=== PATIENT | female | born 1980 | race Caucasian/White ===

== ENCOUNTER → 2019-02-17 | Outpatient (CLI) | payer OTHER, SELFPAY ==
[2019-02-17 08:33] VITALS: BMI 29.6
[2019-02-23 13:56] LABS: HPV APTIMA, High Risk Negative (Negative)
== END | disposition home or self-care (01) ==
LOC: LABSPEC 12:07
PROVIDERS: Family Provider Nurse Practitioner Family; PCP Nurse Practitioner Family; Referring Provider Nurse Practitioner Women's Health; Visit Provider Nurse Practitioner Women's Health
DX: Z12.4 Encounter for screening for malignant neoplasm of cervix (principal)
CPT/HCPCS: 87624; 88175; G0145

== ENCOUNTER → 2021-02-21 07:58 | Outpatient (CLI) | payer OTHER, SELFPAY ==
[2020-02-19 08:49] VITALS: BMI 29.6
--- NOTE | 2021-02-21 08:00 | BI_ITS ---
MAMMOGRAPHY - BILATERAL SCREENING REASON FOR EXAM: Female, 40 years old. Routine annual screening examination. PERTINENT HISTORY: Aunt with breast cancer. TECHNIQUE: Digital bilateral breast freddie (3D mammographic acquisition) in the CC and MLO projections. 2-D mediolateral oblique (MLO) and craniocaudad (CC) views of both breasts were obtained. CAD: Full Field Digital Mammography with Computer Added Detection was performed. COMPARISON: None. Baseline examination. FINDINGS: Breast Composition: The breasts are heterogeneously dense, which may obscure small masses. There are no dominant masses or suspicious calcifications. There is a 6.4 mm well-defined nodule in the upper lateral aspect of the right breast. Correlation with ultrasound is recommended. No other significant abnormalities are identified. BI/SCRN MAMM (CAD)W/FREDDIE BILAT IMPRESSION: 6.4 mm well-defined nodule in the upper lateral aspect of the right breast. Correlation with ultrasound is recommended. ASSESSMENT CATEGORY: BIRADS Category 0: Incomplete. Need additional imaging evaluation. A letter regarding these results will be sent to the patient by the facility within 30 days. Approximately 10% of breast cancers are not detected by mammography. A normal mammogram should not delay biopsy of a clinically suspicious abnormality. [id number] Electronically Signed: Jamin Mosley MD at 8:55 EDT , Service support ,
== END ==
PROVIDERS: PCP Nurse Practitioner Family; Referring Provider Nurse Practitioner Women's Health; Visit Provider Nurse Practitioner Women's Health
DX: Z12.31 Encounter for screening mammogram for malignant neoplasm of breast (principal)
CPT/HCPCS: 77063; 77067

== ENCOUNTER → 2021-02-28 10:51 | Outpatient (CLI) | payer OTHER, SELFPAY ==
[2021-02-21 08:35] VITALS: BMI 30.7
--- NOTE | 2021-02-28 10:56 | US_ITS ---
STUDY: ULTRASOUND BREAST - RIGHT REASON FOR EXAM: Female, 40 years old. Abnormal screening mammogram. TECHNIQUE: Axial and longitudinal images of the RIGHT breast were performed with a high resolution ultrasound transducer. # OF IMAGES: 36 COMPARISON: Comparison is made with prior mammogram dated 02/21/2021. FINDINGS: RIGHT Breast: The upper outer quadrant of the right breast was examined by ultrasound. No sonographic abnormality is seen. Additional mammographic views will be obtained. US/Breast Limited Unilateral IMPRESSION: Unremarkable sonogram. Additional mammographic views will be obtained. ASSESSMENT CATEGORY: BIRADS Category 0: Incomplete. Need additional imaging evaluation. A letter regarding these results will be sent to the patient by the facility within 30 days. Electronically Signed: Jamin Mosley MD at 12:03 EDT , Service support ,
--- NOTE | 2021-02-28 11:17 | BI_ITS ---
MAMMOGRAPHY - UNILATERAL DIAGNOSTIC: RIGHT BREAST REASON FOR EXAM: Female, 40 years old. Abnormal screening mammogram. PERTINENT HISTORY: Aunt with breast cancer. TECHNIQUE: Compression spot views of the right breast were obtained. CAD: Full Field Digital Mammography with Computer Added Detection was performed. COMPARISON: Comparison is made with prior examination dated 02/21/2021. FINDINGS: Breast Composition: The breasts are heterogeneously dense, which may obscure small masses. On the compression spot view, no nodules are seen. No other significant abnormalities are identified. BI/DIAG MAMM W/CAD, UNILAT IMPRESSION: No abnormalities seen on the unilateral diagnostic mammogram. One year follow-up mammogram recommended. (A) ASSESSMENT CATEGORY: BIRADS Category 2: Benign. A letter regarding these results will be sent to the patient by the facility within 30 days. Approximately 10% of breast cancers are not detected by mammography. A normal mammogram should not delay biopsy of a clinically suspicious abnormality. Electronically Signed: Jamin Mosley MD at 12:16 EDT , Service support ,
== END ==
PROVIDERS: PCP Nurse Practitioner Family; Referring Provider Nurse Practitioner Women's Health; Visit Provider Nurse Practitioner Women's Health
DX: R92.8 Other abnormal and inconclusive findings on diagnostic imaging of breast (principal)
CPT/HCPCS: 76642; 77065

== ENCOUNTER → 2022-02-28 | Outpatient (CLI) | payer OTHER, SELFPAY ==
[2021-02-21 08:35] VITALS: BMI 30.7
--- NOTE | 2022-02-28 08:13 | BI_ITS ---
MAMMOGRAPHY - BILATERAL SCREENING REASON FOR EXAM: Female, 41 years old. Routine annual screening examination. PERTINENT HISTORY: Aunt with breast cancer. TECHNIQUE: Digital bilateral breast freddie (3D mammographic acquisition) in the CC and MLO projections. 2-D mediolateral oblique (MLO) and craniocaudad (CC) views of both breasts were obtained. CAD: Full Field Digital Mammography with Computer Added Detection was performed. COMPARISON: Comparison is made with prior study dated 02/21/2021 and 02/28/2021. FINDINGS: Breast Composition: The breasts are heterogeneously dense, which may obscure small masses. There are no dominant masses or suspicious calcifications. No other significant abnormalities are identified. There has been no significant change since the prior study. BI/SCRN MAMM (CAD)W/FREDDIE BILAT IMPRESSION: Stable bilateral screening mammogram. Yearly follow-up mammogram recommended. (A) ASSESSMENT CATEGORY: BIRADS Category 1: Negative. A letter regarding these results will be sent to the patient by the facility within 30 days. Approximately 10% of breast cancers are not detected by mammography. A normal mammogram should not delay biopsy of a clinically suspicious abnormality. [id number] Electronically Signed: Jamin Mosley MD at 8:50 EDT ,
== END | disposition home or self-care (01) ==
LOC: OPBI 08:11
PROVIDERS: PCP Nurse Practitioner Family; Visit Provider Nurse Practitioner Women's Health
DX: Z12.31 Encounter for screening mammogram for malignant neoplasm of breast (principal)
CPT/HCPCS: 77063; 77067

== ENCOUNTER → 2023-03-05 | Outpatient (CLI) | payer OTHER, SELFPAY ==
--- NOTE | 2023-03-05 09:25 | BI_ITS ---
MAMMOGRAPHY - BILATERAL SCREENING REASON FOR EXAM: Female, 42 years old. Routine annual screening examination. PERTINENT HISTORY: Aunt with breast cancer. TECHNIQUE: Digital bilateral breast freddie (3D mammographic acquisition) in the CC and MLO projections. 2-D mediolateral oblique (MLO) and craniocaudad (CC) views of both breasts were obtained. CAD: Full Field Digital Mammography with Computer Added Detection was performed. COMPARISON: Comparison is made with prior study dated February 28, 2022 and February 28, 2021. FINDINGS: Breast Composition: There are scattered areas of fibroglandular density. There are no dominant masses or suspicious calcifications. There is a 6.1 mm x 9.3 mm nodular density in the deep upper medial aspect of the right breast. Correlation with ultrasound is recommended. No other significant abnormalities are identified. BI/SCRN MAMM (CAD)W/FREDDIE BILAT IMPRESSION: 6.1 mm x 9.3 mm nodular density in the upper medial aspect of the right breast as described. Correlation with ultrasound is recommended. ASSESSMENT CATEGORY: BIRADS Category 0: Incomplete. Need additional imaging evaluation. A letter regarding these results will be sent to the patient by the facility within 30 days. Approximately 10% of breast cancers are not detected by mammography. A normal mammogram should not delay biopsy of a clinically suspicious abnormality. [id number] Electronically Signed: Jamin Mosley MD at 11:04 EDT ,
== END | disposition home or self-care (01) ==
LOC: OPBI 09:24
PROVIDERS: PCP Nurse Practitioner Family; Referring Provider Obstetrics & Gynecology; Visit Provider Obstetrics & Gynecology
DX: Z12.31 Encounter for screening mammogram for malignant neoplasm of breast (principal); Z80.3 Family history of malignant neoplasm of breast
CPT/HCPCS: 77063; 77067

== ENCOUNTER → 2023-03-20 | Outpatient (CLI) | payer OTHER, SELFPAY ==
--- NOTE | 2023-03-20 09:27 | US_ITS ---
STUDY: ULTRASOUND BREAST - RIGHT REASON FOR EXAM: Female, 42 years old. Abnormal screening mammogram. TECHNIQUE: Axial and longitudinal images of the RIGHT breast were performed with a high resolution ultrasound transducer. # OF IMAGES: 37 COMPARISON: Comparison is made with prior mammogram dated March 05, 2023. FINDINGS: RIGHT Breast: The upper inner quadrant of the right breast was examined with ultrasound. No sonographic abnormality is seen. Additional mammographic views will be obtained. US/Breast Limited Unilateral IMPRESSION: Unremarkable targeted ultrasound of the upper inner quadrant of the right breast. Further mammographic imaging will be obtained. ASSESSMENT CATEGORY: BIRADS Category 0: Incomplete. Need additional imaging evaluation. A letter regarding these results will be sent to the patient by the facility within 30 days. Electronically Signed: Jamin Mosley MD at 14:53 EDT ,
--- NOTE | 2023-03-20 10:09 | BI_ITS ---
MAMMOGRAPHY - UNILATERAL DIAGNOSTIC: RIGHT BREAST REASON FOR EXAM: Female, 42 years old. Abnormal screening mammogram. PERTINENT HISTORY: Aunt with breast cancer. TECHNIQUE: 90 degree lateral and compression spot views of the right breast were obtained. CAD: Full Field Digital Mammography with Computer Added Detection was performed. COMPARISON: Comparison is made with prior study dated March 05, 2023. FINDINGS: Breast Composition: There are scattered areas of fibroglandular density. Persistent 7.8 mm x 5.8 mm irregular nodule in the anterior medial aspect of the right breast as seen on the craniocaudad view. This is not seen with certainty on the MLO view. With the ultrasound being negative, correlation with MRI is recommended. No other significant abnormalities are identified. BI/DIAG MAMM W/CAD, UNILAT IMPRESSION: Persistent 7.8 mm x 5.8 mm irregular nodule in the anterior medial aspect of the right breast as seen on the craniocaudad view. Further follow-up with MRI is recommended. ASSESSMENT CATEGORY: BIRADS Category 0: Incomplete. Need additional imaging evaluation. A letter regarding these results will be sent to the patient by the facility within 30 days. Approximately 10% of breast cancers are not detected by mammography. A normal mammogram should not delay biopsy of a clinically suspicious abnormality. Electronically Signed: Jamin Mosley MD at 11:18 EDT ,
== END | disposition home or self-care (01) ==
PROVIDERS: PCP Nurse Practitioner Family; Referring Provider Nurse Practitioner Women's Health; Visit Provider Obstetrics & Gynecology
DX: N63.0 Unspecified lump in unspecified breast (principal)
CPT/HCPCS: 76642; 77065

== ENCOUNTER → 2023-04-20 | Outpatient (CLI) | payer OTHER, SELFPAY ==
--- NOTE | 2023-04-20 13:15 | MRI_ITS ---
STUDY: BILATERAL BREAST MR WITHOUT AND WITH CONTRAST REASON FOR EXAM: Female, 42 years old. Nodule in the medial aspect of right breast with no correlate to imaging with ultrasound. Evaluate nodule. TECHNIQUE: Multi-sequence multi-echo imaging of both breasts was performed with a dedicated breast coil. T1-weighted and T2-weighted images were performed before the administration of contrast. T1-weighted images were also performed after the intravenous administration of 19 mL of Clariscan contrast. COMPARISON: Bilateral screening mammogram dated March 05, 2023, right diagnostic mammogram dated March 20, 2023 and right breast ultrasound dated March 20, 2023. FINDINGS: RIGHT BREAST: Scattered fibroglandular densities with moderate background enhancement. 1.2 cm in diameter irregular enhancing mass in the upper inner quadrant of the right breast at approximately the 2:00 position 3.5 cm behind the nipple and 2.5 cm above the nipple. Lesion is approximately 3.5 cm medial to the nipple ovoid enhancing mass measuring 6 mm in diameter located approximately 9 mm above the larger irregular enhancing mass. Both of these lesions are suspicious. A second look focused ultrasound of the upper inner quadrant of the right breast is recommended to identify the lesions. When ultrasound is performed and does identify the lesions, ultrasound-guided biopsy of both of these could be performed. If the lesions are not seen by ultrasound, needle localization of the mass noted on the mammogram could be performed for histologic evaluation. LEFT BREAST: Scattered fibroglandular densities with moderate background enhancement. No abnormal enhancing masses or areas of non-mass enhancement in the left breast. No enlarged or abnormal lymph nodes. No abnormality in the visualized regions of the chest or liver. MRI/Breast Bilateral W/O and W IMPRESSION: 2 enhancing masses in the upper inner aspect of the right breast as described. A second look focused ultrasound of the upper inner quadrant of the right breast is recommended to identify these lesions. If the lesions are identified, ultrasound-guided biopsy could be performed. If the lesions are not seen on the 2nd percentile, needle localization of the mass on the mammogram can be performed for histologic evaluation. CATEGORY: Electronically Signed: Davian Toscano MD at 10:36 EDT ,
== END | disposition home or self-care (01) ==
PROVIDERS: PCP Nurse Practitioner Family; Referring Provider Nurse Practitioner Women's Health; Visit Provider Nurse Practitioner Women's Health
DX: N63.10 Unspecified lump in the right breast, unspecified quadrant (principal)
CPT/HCPCS: 77049; A9575; A4216; C8908

== ENCOUNTER → 2023-05-02 | Outpatient (CLI) | payer OTHER, SELFPAY ==
--- NOTE | 2023-05-02 13:18 | US_ITS ---
STUDY: ULTRASOUND BREAST - RIGHT REASON FOR EXAM: Female, 42 years old. Abnormal screening mammogram. Abnormal MRI of the right breast. TECHNIQUE: Axial and longitudinal images of the RIGHT breast were performed with a high resolution ultrasound transducer. # OF IMAGES: 35 COMPARISON: Comparison is made with prior mammogram dated April 20, 2023 and prior sonogram dated March 20, 2023. FINDINGS: RIGHT Breast: The upper inner quadrant of the right breast was examined with ultrasound. There is a 8mm by 6 mm x 6 mm hypoechoic irregular nodule at the 2:00 position breast at 4 cm from the nipple. This is suspicious. Adjacent to this nodule, there is a suspicious 6 mm x 6 mm x 2 mm hypoechoic nodule. Biopsy recommended. US/Breast Limited Unilateral IMPRESSION: 2 adjacent suspicious nodules are seen at the 2:00 position the breast at 4 cm from the nipple. Biopsy recommended. ASSESSMENT CATEGORY: BIRADS Category 4: Suspicious - Biopsy Should Be Considered. A letter regarding these results will be sent to the patient by the facility within 30 days. Electronically Signed: Jamin Mosley MD at 13:39 EDT ,
== END | disposition home or self-care (01) ==
LOC: OPUS 13:17
PROVIDERS: PCP Nurse Practitioner Family; Referring Provider Nurse Practitioner Women's Health; Visit Provider Nurse Practitioner Women's Health
DX: N63.12 Unspecified lump in the right breast, upper inner quadrant (principal)
CPT/HCPCS: 76642

== ENCOUNTER → 2023-05-16 | Outpatient (CLI) | payer OTHER, SELFPAY ==
--- NOTE | 2023-05-16 | IMM_PTH ---
PATIENT: LEON LUONG LOC: U#:[id number] AGE/SX: 42/F ROOM: RE05/16/[address]: Dr. Fantasma Romo MD : 1980 BED: DIS: 05/16/2023 SPEC #: [id number] RECD: 05/18/23 13:22 STATUS: PATY REQ #: [id number] ANDRE: 05/16/23 00:[address]: Fantasma Romo DEPT: IMMUNOHISTOCHEMISTRY RECD BY: Lynn Jordan ENTERED: 05/18/23 13:24 SP TYPE: IMMUNO OTHR DR: Ester Gomez, PROP CUTTER-C Tissues: A - Right breast, NOS B - Right breast, NOS Procedures: CALPONIN-1 (add) CK5-6 (add) CK8 (add) E-CAD (add) HER2 REGGIE (add) KI-67 (add) P53 (add) WI (add) P40 (add) ER (initial) PHYSICIAN & [address] [address] SPECIMEN INFORMATION: Tissue Source: A - Right breast 1 o'clock, 4.0 cm from nipple, B - Right breast 2 o'clock, 2.0 cm from nipple Clinical Info: Right breast mass x2 Specimen Number: [id number] A & B CPT code: 92940 x2, 76850 x12, 40529 x6 METHODOLOGY: Deparaffinized sections of prefer/formalin-fixed tissue or PAP/DQ stained slides are incubated with monoclonal/polyclonal antibodies/oligonucleotide probes. Localization is made via biotin free immunoperoxidase method. Appropriate controls are performed and reacted as expected. Results on target cell population are indicated in the following table: RESULTS: ANTIBODY / CLONE RESULT Block A E-Cad (ECH-6) positive CK8 (20hsjaX15) positive Calponin-1 (EM108O) negative CK5-6 (D5 & 1684) negative P40 (BC28) negative P53 (DO-7) negative, null pattern Ki-67 (30-9) positive, 10% MORPHOMETRIC ANALYSIS ER (clone 6F11) >90%, moderate to strong WI (clone 16/1E2) 85%, moderate to strong Her-2Neu (clone CB11) 0 Block B E-Cad (ECH-6) positive CK8 (81bcafL86) positive Calponin-1 (BU202O) negative CK5-6 (D5 & 1684) negative P40 (BC28) negative P53 (DO-7) negative, null pattern Ki-67 (30-9) positive, 10% MORPHOMETRIC ANALYSIS ER (clone 6F11) >95%, moderate to strong WI (clone 16/1E2) >95%, moderate to strong Her-2Neu (clone CB11) 0 The prognostic test for HER2 is performed on formalin-fixed paraffin embedded tissue. A 3+ (positive) staining pattern is defined as intense, homogeneous, complete, circumferential membranous staining in >10% of contiguous tumor cells. A similar weak (2+) staining pattern is interpreted as equivocal. YIFAN follow-up testing is recommended for all equivocal cases. Positivity/negativity for ER/WI is reported if > or < 1% of the tumor cells are immuno- reactive, respectively. The ASCO/CAP criteria is used for scoring. Reference: Journal of Clinical Oncology, 2013; 31:7070-5017 & 2010; 16:2598-0760. Ischemic Time: Less than one hour. Duration of fixation: 28.5 Hrs; Sample Adequate: Yes. These assays have not been validated on decalcified tissues. Results should be interpreted with caution given the likelihood of false negativity on decalcified specimens or fixation greater than 72 hours. Alternative testing methods (FISH/dualISH for Her2; gene expression for ER) are recommended, if applicable. Please notify the laboratory if additional testing is needed. These tests were developed and their performance characteristics determined by [facility]. They may not have been cleared or approved by the U.S. Food and Drug Administration. The FDA has determined that such clearance or approval is not necessary. The above immunohistochemical/dualISH markers are ordered and reviewed by the Pathologist. INTERPRETATION: A. 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 Positive for estrogen receptors (favorable prognostic indicator). Positive for progesterone receptors (favorable prognostic indicator). Negative for overexpression of [id number]. B. 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 Positive for estrogen receptors (favorable prognostic indicator). Positive for progesterone receptors (favorable prognostic indicator). Negative for overexpression of [id number]. AM:dereje 05/21/2023
--- NOTE | 2023-05-16 14:06 | US_ITS ---
STUDY: ULTRASOUND BREAST - RIGHT REASON FOR EXAM: Female, 42 years old. Ultrasound-guided breast biopsy. TECHNIQUE: Axial and longitudinal images of the RIGHT breast were performed with a high resolution ultrasound transducer. # OF IMAGES: 39 COMPARISON: Comparison is made with prior ultrasound of the right breast dated May 02, 2023. FINDINGS: RIGHT Breast: Under direct sonographic guidance, the surgeon performed core biopsy of a slightly echogenic 5 mm x 6 mm x 5 mm nodule at the 1:00 position of the breast. IMPRESSION: Ultrasound-guided breast biopsy. ASSESSMENT CATEGORY: BIRADS Category 2: Benign. A letter regarding these results will be sent to the patient by the facility within 30 days. Electronically Signed: Jamin Mosley MD at 13:17 EDT , STUDY: ULTRASOUND BREAST - RIGHT REASON FOR EXAM: Female, 42 years old. Abnormal ultrasound. TECHNIQUE: Axial and longitudinal images of the RIGHT breast were performed with a high resolution ultrasound transducer. # OF IMAGES: 39 COMPARISON: Comparison is made with prior examination of May 02, 2023. FINDINGS: RIGHT Breast: Under direct sonographic guidance, the surgeon performed core biopsy of a 7 mm x 7 mm x 6 mm hypoechoic nodule at the 2:00 position of the breast US/US Breast Biopsy 1st Lesion IMPRESSION: Successful ultrasound guided breast biopsy. ASSESSMENT CATEGORY: BIRADS Category 2: Benign. A letter regarding these results will be sent to the patient by the facility within 30 days. Electronically Signed: Jamin Mosley MD at 13:18 EDT ,
--- NOTE | 2023-05-16 14:55 | BRBX_PTH ---
PATIENT: LEON LUONG LOC: U#:[id number] AGE/SX: 42/F ROOM: RE05/16/[address]: Dr. Fantasma Rmoo MD : 1980 BED: DIS: 05/16/2023 SPEC #: [id number] RECD: 05/16/23 15:28 STATUS: PATY NAHEED #: [id number] ANDRE: 05/16/23 14:[address]: Fantasma Romo DEPT: SURGICAL PATHOLOGY RECD BY: Shari Resendez ENTERED: 05/17/23 10:47 SP TYPE: BREAST BX OTHR DR: Ester Gomez, MANJINDER Tissues: A - Right breast, NOS B - Right breast, NOS Procedures: Surgery Specimen Level IV HEADER OPERATION: Ultrasound-guided breast biopsy, right PRE-OP DIAGNOSIS: Right breast mass x2 TISSUE SUBMITTED: A - Right breast 1 o'clock, 4 cm from nipple, B - Right breast 2 o'clock, 2 cm from nipple MICROSCOPIC DIAGNOSIS A. Right breast 1 o'clock, 4 cm from nipple, ultrasound-guided core biopsy: Invasive ductal carcinoma, nuclear grade 2-3/3 (0.7 cm in greatest length). See comment. B. Right breast 2 o'clock, 2 cm from nipple, ultrasound-guided core biopsy: Invasive ductal carcinoma, nuclear grade 2-3/3 (1.0 cm in greatest length). See comment. GODFREY:dereje 05/18/2023 COMMENT A & B. Immunohistochemistry ([id number]) supports the above diagnosis. ER/WY/Kta0jsf studies are being performed on sections of tumor and the results from this study will be reported separately ([id number]). Case has been reviewed in consultation with Dr. Hendrix who concurs with the above diagnosis. IDC:[email or web address] MICROSCOPIC DESCRIPTION Slides are reviewed. GROSS DESCRIPTION A - Received in fixative is one container labeled with the patient's name and designated right breast 1 o'clock. The specimen consists of multiple elongated fragments of person-yellow fibroadipose tissue that in aggregate measure 2.0 x 0.2 x 0.1 cm. The entire specimen is submitted in one cassette. B - Received in fixative is one container labeled with the patient's name and designated right breast 2 o'clock. The specimen consists of multiple elongated fragments of person-yellow fibroadipose tissue that in aggregate measure 2.0 x 0.5 x 0.1 cm. The entire specimen is submitted in one cassette. / SJ:dereje 05/17/2023 TC:0 Ischemic Time: 2 minutes Fixation Time: 28.5 hours CPT: 05702 x2
--- NOTE | 2023-05-16 15:17 | BI_ITS ---
MAMMOGRAPHY - UNILATERAL DIAGNOSTIC: RIGHT BREAST REASON FOR EXAM: Female, 42 years old. Post right breast biopsy clip placement. PERTINENT HISTORY: TECHNIQUE: Mediolateral oblique and craniocaudad views were obtained. CAD: Full Field Digital Mammography with Computer Added Detection was performed. COMPARISON: Comparison is made with prior study dated March 20, 2023 and March 05, 2023. FINDINGS: Breast Composition: The breasts are heterogeneously dense, which may obscure small masses. Physical marker is seen within the deep nodule in the upper medial aspect of the right breast. A second tissue marker is seen in the upper central retroareolar region of the breast. No other significant abnormalities are identified. BI/DIAG MAMM W/CAD, UNILAT IMPRESSION: Status post ultrasound-guided breast biopsy with clip placement. One year follow-up mammogram recommended. (A) ASSESSMENT CATEGORY: BIRADS Category 2: Benign. A letter regarding these results will be sent to the patient by the facility within 30 days. Approximately 10% of breast cancers are not detected by mammography. A normal mammogram should not delay biopsy of a clinically suspicious abnormality. Electronically Signed: Jamin Mosley MD at 8:07 EDT ,
--- NOTE | 2023-05-16 15:26 | PRO.PCM_ITS ---
Procedure Report Date of Procedure: 05/16/23 Procedure: Core needle biopsy of right breast Description: After a detailed discussion regarding the risks and benefits of the biopsy procedure, the patient was appropriately positioned on the exam table. Formal, written consents were obtained prior to positioning. Ultrasound was used to lo calize the lesions in the upper inner quadrant of the right breast at the 1 and 2:00 positions 4 cm from the nipple, respectively. Locally 1% lidocaine was infiltrated about each mass using ultrasound guidance. Once the area was sufficiently anesthetized, a small stab incision was made in the skin at the areolar border and the Return Path core max core needle device was introduced percutaneously. Ultrasound was used to guide the tip of the device to the border of the 4 mm 1:00 suspicious lesion. Then the mass was serially sampled with 2 cores which were placed in solution for pathologic processing. A marking clip was then placed under ultrasound guidance just on the periphery to the mass. Pressure was applied until hemostasis was obtained. This sequence was then repeated through the same stab incision for the 8 mm 2:00 mass and a total of 3 cores were obtained. The skin was cleaned and Steri-Strips were applied over the stab incision for the biopsy procedure. Patient tolerated the pr ocedure with no complications. EBL: Less than 5 mL Complications: None
== END | disposition home or self-care (01) ==
PROVIDERS: PCP Nurse Practitioner Family; Referring Provider Surgery; Visit Provider Surgery
DX: N63.11 Unspecified lump in the right breast, upper outer quadrant (principal)
CPT/HCPCS: 19083; 19084; 77065; 88305; 88341; 88342

== ENCOUNTER 2023-06-06 08:17 | Day surgery (SDC) | payer OTHER, SELFPAY ==
--- NOTE | 2023-06-06 | IMM_PTH ---
PATIENT: LEON LUONG LOC: [facility] – [place] U#:[id number] AGE/SX: 42/F ROOM: RE06/06/[address]: Dr. Fantasma Romo MD : 1980 BED: DIS: 06/06/2023 SPEC #: [id number] RECD: 06/11/23 14:43 STATUS: PATY REQ #: [id number] ANDRE: 06/06/23 00:[address]: Fantsama Romo DEPT: IMMUNOHISTOCHEMISTRY RECD BY: Lynn Jordan ENTERED: 06/11/23 14:46 SP TYPE: IMMUNO OTHR DR: Ester Gomez, WATER CARTER-C Tissues: A - Axillary lymph node, NOS B - Axillary lymph node, NOS D - Right breast, NOS Procedures: CD31 (initial) CK7 (add) CK8 (add) FACTOR VIII (add) Pankeratin (initial) Pankeratin (add) PHYSICIAN & INSTITUTION [place] [id number] SPECIMEN INFORMATION: Tissue Source: A - Right axillary sentinel lymph node, B - Right axillary sentinel lymph node, D - Right breast additional deep margins Clinical Info: Right breast cancer Specimen Number: [id number] A1-A4, B1-B3, D1 CPT code: 87229 x3, 45503 x16 METHODOLOGY: Deparaffinized sections of prefer/formalin-fixed tissue or PAP/DQ stained slides are incubated with monoclonal/polyclonal antibodies/oligonucleotide probes. Localization is made via biotin free immunoperoxidase method. Appropriate controls are performed and reacted as expected. Results on target cell population are indicated in the following table: RESULTS: ANTIBODY / CLONE RESULT Block A1 AE1-3 (AE1/AE3/PCK26) negative CK7 (OV-TL12/30) negative Block A2 AE1-3 (AE1/AE3/PCK26) negative CK7 (OV-TL12/30) negative Block A3 AE1-3 (AE1/AE3/PCK26) negative CK7 (OV-TL12/30) negative Block A4 AE1-3 (AE1/AE3/PCK26) negative CK7 (OV-TL12/30) negative Block B1 AE1-3 (AE1/AE3/PCK26) negative CK7 (OV-TL12/30) negative Block B2 AE1-3 (AE1/AE3/PCK26) negative CK7 (OV-TL12/30) negative Block B3 AE1-3 (AE1/AE3/PCK26) negative CK7 (OV-TL12/30) negative Block D1 CD31 (DESTINY/70A) negative Factor VIII (R Ag) negative AE1-3 (AE1/AE3/PCK26) positive CK8 ([id number]) Positive These tests were developed and their performance characteristics determined by [facility]. They may not have been cleared or approved by the U.S. Food and Drug Administration. The FDA has determined that such clearance or approval is not necessary. The above immunohistochemical/dualISH markers are ordered and reviewed by the Pathologist. INTERPRETATION: A. Right axillary sentinel lymph node, biopsy: One lymph node, negative for metastatic carcinoma. B. Right axillary sentinel lymph node, biopsy: One lymph node, negative for metastatic carcinoma. D. Right breast additional deep margins: Invasive adenocarcinoma. Ductal carcinoma in situ. Negative for lymphovascular invasion SJ:dereje 06/12/2023 Case has been reviewed in consultation with Dr. Squires who concurs with the above diagnosis. IDC:AM
--- NOTE | 2023-06-06 | AXNB_PTH ---
PATIENT: LEON LUONG [place] [facility] [place][id number] AGE/SX: 42/F ROOM: RE06/06/[address]: Dr. Fantasma Romo MD : 1980 BED: DIS: 06/06/2023 SPEC #: [id number] RECD: 06/06/23 14:50 STATUS: PATY REMartin #: [id number] ANDRE: 06/06/23 00:[address]: Fantasma Romo DEPT: SURGICAL PATHOLOGY RECD BY: Lynn Jordan ENTERED: 06/06/23 15:42 SP TYPE: AX NODE BX OTHR DR: Ester Gomez, INSTRUMENT SPECIALIST-C Tissues: A - Axillary lymph node, NOS B - Axillary lymph node, NOS C - Right breast, NOS D - Right breast, NOS Procedures: Frozen Section (charge) Surgery Specimen Level IV Surgery Specimen Level V HEADER OPERATION: Right breast stereotactic wire localization, lumpectomy, sentinel node PRE-OP DIAGNOSIS: Right breast cancer TISSUE SUBMITTED: A - Right sentinel lymph node, frozen section, B - Right sentinel lymph node, frozen section, C - Right breast lumpectomy, short - superior, long - lateral, D - Right breast additional deep margins, short - superior, long - lateral FROZEN SECTION DIAGNOSIS A. Right axillary sentinel lymph node, biopsy: One out of one lymph node negative for carcinoma. AM:dereje 06/06/2023 B. Right sentinel lymph node, biopsy: One lymph node, negative for metastatic carcinoma. : 06/06/2023 MICROSCOPIC DIAGNOSIS A. Right axillary sentinel lymph node, biopsy: One lymph node, negative for metastatic carcinoma. See comment. B. Right axillary sentinel lymph node, biopsy: One lymph node, negative for metastatic carcinoma. See comment. C. Right breast, lumpectomy with wire localization: Invasive ductal carcinoma x2. Focal ductal carcinoma in situ. See cancer summary in the comment section. D. Additional deep margin: Focal invasive ductal carcinoma. Focal ductal carcinoma in situ. See comment. : 06/12/2023 COMMENT A & B. The lymph node is negative for metastatic carcinoma on multiple H & E levels and immunohisto-chemical stains for cytokeratins ([id number]). BREAST CANCER SUMMARY (Specimen A to D): Procedure - lumpectomy with wire localization Specimen laterality - right Tumor site - As per clinical information, right breast 1 o'clock, 4.0 cm from nipple and right breast 2 o'clock, 2.0 cm from nipple. Tumor size - Size of largest invasive carcinoma - 1.0 x 0.7 cm (measured microscopically). Histologic type - Invasive ductal carcinoma, no special type. Histologic grade (Angel grade): Both tumors Glandular/tubular differentiation score - 3 Nuclear pleomorphism score - 3 Mitotic count score - 1 Overall grade - grade 2 (score of 7) Tumor focality - two foci of invasive carcinoma. Size of individual foci - larger tumor 1.0 x 0.7 cm (measured microscopically) Smaller tumor 0.5 x 0.5 cm (measured microscopically) Ductal carcinoma in situ - present Negative for extensive intraductal component (EIC). Size (extent) of DCIS - DCIS comprise ~10% of the tumor volume. Number of blocks with DCIS - 5 Number of blocks examined - 19 Architectural pattern - solid and cystic Nuclear grade - grade 2-3 Necrosis - not identified Lobular carcinoma in situ - not present Tumor extension: Skin - skin is not present. Nipple - not applicable Skeletal muscle - no skeletal muscle is present. Margins: Invasive carcinoma margin - the tumor is present at the margin in the lumpectomy specimen. Clinically, it is posterior margin; however, by inking of green ink representing inferior margin. The small focus of invasive carcinoma is also noted in the specimen D, additional deep margin at the lateral edge of the specimen. Ductal carcinoma in situ margin - DCIS is 0.2 cm away from the anterior margin in the lumpectomy specimen and 0.1 cm away from the new posterior margin in specimen D, additional deep margin. Regional lymph nodes: Number of lymph nodes examined - 2 Number of sentinel lymph nodes examined - 2 Number of lymph nodes with macrometastases, micrometastases or isolated tumor cells - 0 Treatment effect - no known presurgical therapy. Lymphvascular invasion - Not identified. Dermal lymphvascular invasion - not applicable Additional Pathologic Findings - changes consistent with previous biopsy site. Ancillary Studies: Previously performed on same tumor ([id number] / [id number]) Specimen A ER: positive (>90%, moderate to strong) AR: positive (85%, moderate to strong) Mwe8ahh: negative (0) Ki67: positive, 10% Specimen B ER: positive (>95%, moderate to strong) AR: positive (>95%, moderate to strong) Kmh1xqw: negative (0) Ki67: positive, 10% Microcalcifications - present in DCIS. Clinical History - Please make reference to previous specimen ([id number]), right breast, 1 o'clock, 4.0 cm from nipple with diagnosis of invasive ductal carcinoma and right breast, 2 o'clock, 2.0 cm from nipple with diagnosis of invasive ductal carcinoma. PATHOLOGIC STAGE: pT1b(m) pN0 pMx The above summary is in compliance with [employer] (CAP) Cancer Protocols Checklist and [place] [employer] Committee on Cancer (AJCC), Staging Manual, 8th Ed. Right breast, additional deep margin - invasive carcinoma measures 0.4 x 0.3 cm, measured microscopically and present at the lateral edge of the specimen and ductal carcinoma in situ is 0.1 cm away from new posterior margin and 0.2 cm away from the inferior margin of the specimen. Immunohistochemistry ([id number]) is negative for lymph-vascular invasion. This case is discussed with Dr. Romo on 06/13/2023. Case has been reviewed in consultation with Dr. Squires who concurs with the above diagnosis. IDC:AM MICROSCOPIC DESCRIPTION Slides are reviewed. GROSS DESCRIPTION A. Received fresh for frozen section consultation labeled with the patient's name is a specimen designated right sentinel lymph node. The specimen consists of a nodular fragment of person-yellow soft tissue measuring 3.5 x 3.0 x 1.0 cm. The specimen is serially sectioned and submitted in its entirety in four cassettes. / AM:dereje 06/06/2023 B - Received fresh for frozen section diagnosis labeled with the patient's name is a specimen designated right sentinel lymph node. The specimen consists of a piece of adipose tissue containing one nodule consistent with lymph node measuring 3.5 x 2.5 x 1.0 cm. The specimen is serially sectioned and submitted entirely for frozen section diagnosis in three cassettes. / SJ:dereje 06/06/2023 C - Received fresh for intraoperative consultation labeled with the patient's name and designated right breast lumpectomy. The specimen consists of a piece of fibroadipose tissue and needle localization x2 measuring 5.5 x 3.5 x 3.0 cm. The specimen is oriented as follows: short - superior, long - lateral. The specimen is inked as follows: anterior - yellow, posterior - black, superior - blue, inferior - green, medial??red and lateral - orange. Serial sections reveal a biopsy site measuring 0.5 cm in greatest dimension and 0.5 cm away from the closest inferior margin. This information is conveyed to the surgeon intraoperatively. Sections of the rest of the specimen reveal person-yellow adipose cut surfaces mixed with person-white fibrous areas. Further sectioning reveal a person, indurated area measuring 0.8 x 0.5 x 0.5 cm and this area is close to the inferior margin. The entire specimen is submitted from lateral to medial margin in 17 cassettes. Sections will be submitted after additional fixation. / SJ:dereje 06/07/2023 D - Received in fixative is one container labeled with the patient's name and designated right breast additional deep margin. The specimen consists of a piece of adipose tissue measuring 3.0 x 2.0 x 0.7 cm. The specimen is not identified as a new or old margin. One surface is inked black, opposite surface is inked blue. The margins are inked as follows: superior - green, inferior - yellow, medial - red and lateral - orange. The specimen is serially sectioned and reveals no underlying mass lesion. The entire specimen is submitted in two cassettes. / SJ:dereje 06/07/2023 TC:0 CPT:
--- NOTE | 2023-06-06 08:47 | NM_ITS ---
PROCEDURE: NUCLEAR MEDICINE Injection Fallon Node - RIGHT breast(s). REASON FOR EXAM: Female, 42 years old. Right breast cancer. TECHNIQUE: Fallon node localization using radionuclide methods of the RIGHT breast(s) was performed following subcutaneous administration of 1.1 mCi of of sulfur colloid Tc-99m. COMPARISON STUDIES : NM - None. CR - Not available for review at this time. CT - Not available for review at this time. MR - Not available for review at this time. US - Not available for review at this time. FINDINGS: 1.1 mCi of technetium labeled sulfur colloid was injected subcutaneously in the right periareolar region for sentinel node imaging. NM/Lymph Node Injection Only IMPRESSION: 1.1 mCi of insulin sulfur colloid was injected subcutaneously in the right perihilar region. Electronically Signed: Jamin Mosley MD at 10:55 EDT ,
[2023-06-06 08:58] LABS: Internal QC Validated? YES +Cl - CLEAR BKGD; Pregnancy, Urine Negative Negative; Record Kit Lot#,Urine Preg HCG0000667200
[2023-06-06] MEDS: Lactated Ringers 1,000 ML 15 ML IV (09:10)
[2023-06-06 09:11] VITALS: BP 109/77; PULSE 72; RESP 18; TEMP 36.9; O2SAT 97; BMI 32.5
--- NOTE | 2023-06-06 10:59 | BI_ITS ---
SURGICAL BREAST SPECIMEN RADIOGRAPH CLINICAL: Document presence of tissue clip markers in biopsy specimen. FINDINGS: Specimen shows presence of tissue clip markers. Electronically Signed: Jamin Mosley MD at 8:18 EDT , BI/Breast Biopsy Specimen IMPRESSION: undefined
--- NOTE | 2023-06-06 12:40 | PCM.HP.BLA ---
History and Physical Date of Admission: 06/06/23 Date of Service: 05/25/23 MR#: [id number] Acct: [id number] Name: LEON RAIN Rep #: [id number] : 1980 Provider: Dr. Fantasma Romo MD Age/Sex: 42/F Location: [facility] Status: Signed Intake Vital Signs 05/07/2309:54 05/25/2315:09 Height 5 ft 6 in 5 ft 6 in Weight: 214 lb 210 lb 2 oz BMI 34.5 33.9 BP 119/87 H 117/74 Blood Pressure Location Rt brachial Rt brachial Position Sitting Sitting Respiration 17 17 Pulse 80 86 Pulse Source Monitor NIBP Temp 97.4 F L 97.6 F L Temp Source Temporal Temporal Pulse Oximetry (%) 98 96 Oxygen Delivery Method room air room air Intake Visit Reasons: DISCUSS SURGERY Chief Complaint: discuss surgery Computer Operations Supervisor Required: No Is patient in pain?: No Allergies No Known Allergies Allergy (Verified 05/25/23 15:09) Medications multivitamin 1 tab PO DAILY 02/28/22 [History Confirmed 05/25/23] cholecalciferol (vitamin D3) 125 mcg (5,000 unit) capsule 125 mcg PO DAILY 03/05/23 [History Confirmed 05/25/23] venlafaxine 37.5 mg capsule,extended release 24 hr (Effexor XR) 37.5 mg PO DAILY 03/05/23 [History Confirmed 05/25/23] Is last menstrual period known: No Post menopausal: No Patient : No PFSH Surgical History (Updated 05/25/23 @ 15:09 by Tonya Solano) H/O section H/O left knee surgery History of right breast biopsy (~05/2023) Family History Father Heart diseaseAunt Breast cancer Social History household members: family housing: house number of children: 2 current occupational status: employed 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 Patient presents today with her for follow-up. She reports that she has had some difficulty processing this news and that her mind went blank after our phone conversation. She has a number of questions this afternoon. Below is recapitulated from patient's consultation visit for ease of review: Patient is a 42-year-old female who presents for suspicious mammographic finding that was initially undetected with follow-up ultrasound but then seen on repeat mammogram leading to both repeat ultrasound and MRI. They are referred from Ms. Teresa Bhatt NP. Based on sonographic imaging criteria this was given a BI-RADS 4. The mass was first found by mammogram last year but on repeat mammogram was found to have doubled in size. Patient has no prior history of breast pathology. Therefore she has no history of prior breast biopsy. She underwent menarche at the age of 14. She has had 2 pregnancies and 2 live births. Breast-feeding was used with both for 1 year apiece. Patient has a paternal aunt that was diagnosed with advanced breast cancer in their 60s or 70s. However they have no first-degree relatives with breast cancer. There is no tenderness with the present finding. There is no nipple discharge associated with this finding. Mrs. Rain does share that she has a history of a mole removal from her right breast at [facility] dermatology sometime after the year 2007. She states that she made the recent connection that the 3rd grade reading teacher had their probe directly over her scar when trying to further characterize the lesion in question. Outside of this issue, there is no other history of trauma/infection to the affected breast. ROS General General: No weight change, appetite, fatigue, colon cancer, breast cancer or weakness HEENT HEENT: No difficulty swallowing, eye injury, eye surgery, swollen glands or hoarseness Endo Endocrine: No thyroid disease, diabetes mellitus, thyroid cancer, Hair loss, heat intolerance or cold intolerance Skin Skin: No rash or changing moles Breast Breast: Yes abnormal mammogram and abnormal US; No left breast lump, right breast lump, nipple discharge, breast pain or breast enlargement Musc Musculoskeletal: No back problems, arthritis, rheumatoid arthritis, gout or joint pain Cardio Cardiovascular: No murmur, pacemaker, heart disease, atrial fibrillation, high blood pressure, heart attack, heart stent, palpitations, shortness of breat with exertion or chest pain Psych Psychiatric: Yes anxiety; No depression or hearing voices Resp Respiratory: No shortness of breath, No sleep apnea, No cough, No COPD, No asthma, No emphysema and No wheezing Gastro Gastrointestinal: No abdominal pain, No nausea or vomiting, No diarrhea, No constipation, No blood in stool, No acid reflux, No hemorrhoids, No ulcers, No gallbladder problem and No black,tarry stools Adeel Hematologic: No blood thinners, No blood disorders, No bleeding, No anemia and No blood clots Neuro Neurologic: No system reviewed and no additional complaints, except as documented, No as per HPI, No abnormal gait, No abnormal hearing, No abnormal movements, No abnormal speech, No behavioral changes, No burning sensations, No confusion, No convulsions, No disequilibrium, No dizziness, No localized weakness, No frequent falls, No headache(s), No lack of coordination, No loss of vision, No memory loss, No numbness, No other visual disturbances, No radicular pain, No restless legs, No sensory deficit, No syncope, No tingling, No tremor(s), No weakness and No other Exam Const General: cooperative and anxious Orientation: alert, awake and oriented x3 Chest Other: Well-healing biopsy site with minute puncture wound at the areolar border and some associated ecchymosis. No signs of infection. Assessment and Plan Assessment and Plan (1) Breast cancer, right: Status: Acute Comment: This is a 42-year-old female who presents for newly diagnosed infiltrating ductal carcinoma of the right breast. Specifically this is a case of 2 separate lesions in the upper inner quadrant of the right breast measuring 6 and 7 mm, respectively. Immunohistochemical analysis demonstrates that these are strongly ER and UT positive as well as HER2/floyd negative. I held a lengthy conversation with Mrs. Rain and her regarding the management of breast cancer?specifically at staging and then its subsequent treatments. I shared with Mrs. Rain that there are number of favorable characteristics to her case including a preprocedure MRI which identified only these 2 lesions and no suspicious lymphadenopathy, the small size of these lesions, and her immunohistochemical typing. We discussed treatment options to include mastectomy versus lumpectomy and radiation. I stressed to her that the survival following each of these should be equivalent, however, there may be a slightly increased risk of recurrence with the latter. She had a number of questions related to the specifics of how the radiation was administered and what this may mean for her postoperative recovery/ability to participate at work/with her extracurriculars in softball. I largely deferred these responses to radiation oncology and tried to focus on the surgical aspect of her care. I shared with her that I would recommend proceeding with stereotactic wire localized lumpectomy and sentinel lymph node biopsy given the small size of these lesions. We then discussed the methodology for sentinel lymph node biopsy as well as the underlying physiology. She and her expressed understanding of this information and ultimately gave their consent to proceed as recommended. Plan: Stereotactic, wire?localized identification of right upper inner quadrant breast lesions followed by lumpectomy and sentinel lymph node biopsy to be scheduled. I have examined the patient the following changes are noted: Patient has completed injection with radiotracer and just prior to her arrival to the operating room we completed stereotactic wire localization of her biopsy-proven areas of breast cancer in the right upper inner quadrant. Details of the procedure were reviewed with patient and her . All further questions were answered. We will now proceed to the operating room for sentinel lymph node biopsy and lumpectomy.
[2023-06-06] MEDS: Cefazolin 2 GM in 0.9% Normal Saline (100mL Bag) 100 ML IV (12:43)
[2023-06-06] MEDS: Isosulfan Blue 1% 5 ML Vial (12:50)
[2023-06-06] MEDS: Bupivacaine 0.25% 30 ML Vial (16:22)
--- NOTE | 2023-06-06 16:30 | OP.PCM_ITS ---
Report of Operation Date of Procedure: 06/06/23 Pre-Operative Diagnosis: Right invasive ductal carcinoma (2 sites) Post-Operative Diagnosis: Same Surgery/Procedure Performed:: Wire?localized right breast lumpectomy with sentinel lymph node biopsy using dual tracer technique Description of Surgical Findings:: ? [place] node #1 taken because radioactivity with 10-second count of 84 ? [place] node #2 was prominent radioactivity and 10-second count of 2241 ? Mammography of excised specimen showing both localization wires in both biopsy markers Surgeon: Fantasma Romo capper machine operator: Luisa Camejo capper machine operator: Zhanna Muñoz Type of Anesthesia: General/Supplemental Anesthesiologist: Steven Hubbard Specimen's removed: 1. [place] lymph node #1 (ex vivo count 86) 2. [place] lymph node #2 (ex vivo count 2241) 3. Right breast lumpectomy specimen 4. New posterior margin Estimated Blood Loss (mL): 25 Description of Procedure: [place] lymph node synoptic: Operation performed with curative intent: Yes Tracer used to identify sentinel nodes: 1.1 mCi technetium labeled sulfur colloid and 5 mL isosulfan blue 1% Removal of all nodes present at the end of a dye-failed lymphatic channel removed: Yes All significant radioactive nodes removed: Yes All palpably suspicious lymph nodes removed: Yes After appropriate identification the patient was positioned on the mammography table and the biopsy clips were targeted. We determined that a cranial caudal approach to wire localization would be most appropriate. Stereo images were then obtained of the clips and we decided to bracket the 2 biopsy clips with separate wires. Each wire was then placed and post procedure x-rays and mammography were obtained to confirm this position. The patient was brought to the preoperative holding area where procedure expectations were confirmed with the patient and her spouse. After confirming consents, she is brought to the operating room where preoperative antibiotics were administered. She was positioned supine on the operating room table with her arms out and underwent induction with anesthesia. An LMA airway was placed. Patient's right breast was exposed and the isosulfan blue was injected in the 4 quadrants of the areola with 2 mL in the upper outer quadrant and 1 mL in the remaining 3 quadrants. These aliquots of isosulfan blue were followed by subcutaneous injection of sterile saline with 2 mL volumes in each quadrant. The areolar complex was then massaged for a period of 5 minutes. The neoprobe device was used to try to identify the area of greatest radioactivity in the right axilla and a marking pen was used to designate where we had identified counts of up to 80. The patient's right breast and axilla were then prepped and draped in usual sterile fashion. Formal timeout was conducted to confirm both patient and procedure. Local anesthetic was instilled in the appointed location for the sentinel lymph node biopsy incision (along the inferior border of the axilla in the hairbearing area of skin) and an approximately 5 cm transverse incision was made sharply. This was deepened with the use of electrocautery through Hardeep's and clavipectoral fascia. The neoprobe device was used to guide the trajectory of further blunt dissection. However, the signal from the neoprobe remained intermittent and I was not able to get counts of greater than 11 despite changing the trajectory of my dissection as well as of the probe. Therefore, I requested the assistance of my partner Dr. Camejo to the operating room. Jointly we extended our dissection more medially and superiorly until we identified a firmer lobule of fat that also appeared to have slight alteration in coloring consistent with a lymph node. No blue coloration was noted, however. The area did carry some radioactive signal so it was dissected out circumferentially, clipping the small lymphatics that appeared to be entering it peripherally. This area was then completely removed and an ex vivo count returned a 10-second value of 86. It was passed off the field to be sent for pathologic evaluation as a fresh specimen and designated sentinel lymph node #1. As the neoprobe was returned to the axillary surgical cavity we identified a stronger signal yet in the more medial aspect of the cavity and were able to identify a second lymph node with a blue lymphatic channel coursing towards it. Once again, this area was bluntly dissected free of the surrounding soft tissue and the small lymphatics leading to it were clipped for the tissue was divided. Ex vivo 10-second count on this lymph node was 2241. The neoprobe was then reinserted once more into the axilla, but no further radioactivity was detected. I also did not palpate any additional suspicious lymphadenopathy, nor see any additional blue lymphatic tissue. This second lymph node was sent to pathology for frozen section and the biopsy cavity was irrigated with sterile water and inspected for hemostasis. The latter was achieved with selective electrocautery and the cavity was packed while he then transition to the patient's breast. Attention was turned to the lumpectomy portion of the case. Local anesthetic was infiltrated in a linear incision was made in the upper inner quadrant of the right breast connecting the exit sites of our to localization wires. This was deepened through the dermal layer with electrocautery and gradually a cutaneous flap was released superiorly and inferiorly. I also dissected medially and laterally to be sure that our localization wires were included within the confines of the dissection. I began using electrocautery to obtain wide superior and inferior margins and extended these down deeply to well beyond the inferior extent of my wires. Unfortunately along the outer inferior aspect of the specimen I encountered some mild bleeding which obscured the view of further dissection. With this issue impeding progress for the rest of the operation I chose to use a 3-0 silk suture and made several passes around the area in a whipstitch technique to obtain hemostasis. Even with this technique there was still some slight oozing but it allowed us to complete circumferential dissection of the area of interest. It was also apparent at this time that the anchoring point of the wire had to come free of the deeper soft tissue so I made sure to stay both lateral and deep to this area to ensure adequate margins for final specimen. Once I had achieved the appropriate circumferential excision and confirmed our depth, the breast tissue was amputated from the cavity. It was oriented with marking sutures such that the short stitch marked the superior margin and the long stitch marked the lateral margin. It was then passed off the field for mammography and pathology. Around this time I obtained a phone call from pathology that both lymph nodes were negative and so I proceeded with closure of the sentinel lymph node surgical cavity after changing gloves. This cavity was closed using interrupted 3-0 Vicryl suture to close down the clavipectoral fascia leaflets. More superficially I did a series of interrupted deep dermal sutures and lastly used a 4-0 Monocryl in a subcuticular fashion to close the skin. Mammography then confirmed that the images of our lumpectomy specimen were in our PACS system and I visually identified both biopsy clips and both localization wires within the specimen. Awaiting the results of the pathologic analysis of the lumpectomy specimen, I ensured hemostasis in the biopsy cavity and applied selective after cautery where needed. Shortly thereafter pathology called to say that they had not identified a discrete mass, but did see the entire biopsy cavity and that this cavity resided 2 mm from the deep margin-representing the closest margin on the specimen. They specifically confirmed that they had a wide margin inferiorly and deeply. We jointly agreed to submit a new posterior/deep margin for permanent pathology in the interest of ensuring the negative margin. This margin was grasped with a [place] clamp and an additional 1 cm of breast tissue was removed with electrocautery. This new deep margin was again oriented short superior long lateral with marking sutures and submitted, as above, for permanent section. Then the biopsy cavity was palpated and I did not identify any suspicious mass lesions. The cavity was, again, irrigated with sterile water and inspected for hemostasis. 4 titanium clips were used to marshall the posterior extent of our biopsy cavity for later radiation targeting. The cavity was then closed at a deep dermal level with a running 3-0 Vicryl. Then the skin was closed in a subcuticular fashion with 4-0 Monocryl. Steri-Strips and OpSite bandages were applied at both the axillary and breast incisions. The patient was awoken from anesthetic without issue and delivered to PACU for ongoing care. Complications None Admit VTE Documentation VTE Mechan Device Prophylaxis: SCD's
--- NOTE | 2023-06-06 16:35 | EX.PCM.DISCH ---
Discharge Instructions Diet Discharge Diet: No restrictions Activity Discharge Activity: May Not Drive (No driving while using narcotic pain medication) May shower in (days): 2 Ice area for (Minutes): 20 Lifting Restrictions: Limit lifting with right upper extremity to no more than 5 pounds Dressing / Incision Call your doctor if your incision/area has: Continuous Slow Oozing, Sudden Increased Bleeding, Increased Pain/ Swelling, Increased Redness, Foul Smelling Discharge and Swelling at the incision site Call your doctor if you observe: Fever of 101 or Higher Suture Line Care: Avoid Pulling/Pushing Remove Dressing in: 2 days Cleanse incision/area with: Soap & Water Additional Dressing/Incision Instructions:: Please leave Steri-Strips intact until they fall off spontaneously or are taken off at your follow-up visit Follow Up Care Please Follow Up With: Fantasma Romo MD When: 7-10 days postop Test Results: Test results from this visit will be discussed in further detail at your follow-up appointment, if applicable. Discharge Plan Admission Primary Reason for Your Visit: Right breast cancer Attending Provider: Fantasma Romo Primary Care Provider: Ester Gomez NP Discharge Orders/Prescriptions Prescriptions: New oxycodone 5 mg tablet 5 mg PO Q6H PRN (Reason: pain) 5 Days Qty: 14 0RF Continued venlafaxine [Effexor XR] 37.5 mg capsule,extended release 24hr 37.5 mg PO DAILY cholecalciferol (vitamin D3) 125 mcg (5,000 unit) capsule 125 mcg PO DAILY cetirizine [24Hour Allergy] 10 mg tablet 10 mg PO DAILY Referrals / Follow Up: Ester Gomez NP, [facility] [Primary Care Provider] - Disposition Disposition (needs filled in before D/C Order can be placed): Home, Self Care
[2023-06-06 16:43] VITALS: BP 109/77; BP 121/82; PULSE 88; RESP 18; TEMP 37.9; O2SAT 99
[2023-06-06 16:45] VITALS: BP 109/77; BP 129/84; PULSE 88; RESP 16; O2SAT 96
[2023-06-06 17:00] VITALS: BP 109/77; BP 118/76; PULSE 89; RESP 16; O2SAT 96
[2023-06-06 17:16] VITALS: BP 109/77; BP 126/97; PULSE 85; RESP 16; TEMP 36.3; O2SAT 97
[2023-06-06] MEDS: Acetaminophen 500 MG Tablet 1000 MG PO (17:48)
[2023-06-06 18:08] VITALS: BP 109/77; BP 117/66; PULSE 73; RESP 16; TEMP 36.4; O2SAT 98
== END 2023-06-06 18:24 | disposition home or self-care (01) ==
LOC: SDC 08:20 → AC 08:20
PROVIDERS: PCP Nurse Practitioner Family; Referring Provider Surgery; Visit Provider Surgery
PROC: 0HBV0ZZ Excision of Bilateral Breast, Open Approach (ICD-10-PCS; CPT 19302; principal; 2023-06-06 11:45)
DX: C50.911 Malignant neoplasm of unspecified site of right female breast (principal); N64.59 Other signs and symptoms in breast; Z80.3 Family history of malignant neoplasm of breast
CPT/HCPCS: 19301; 38525; 38900; 00406; 19281; 19282; 38792; 76098; 81025; 88305; 88307; 88331; 88341; 88342; A4648; A9541; J7120; A4216; J2405; Q9968

== ENCOUNTER 2023-06-20 13:19 | Day surgery (SDC) | payer OTHER, SELFPAY ==
[2023-06-20 13:49] VITALS: BP 118/77; PULSE 64; RESP 16; TEMP 36.3; O2SAT 99; BMI 33.7
[2023-06-20 13:53] LABS: Internal QC Validated? YES +Cl - CLEAR BKGD
[2023-06-20 13:54] LABS: Pregnancy, Urine Negative Negative; Record Kit Lot#,Urine Preg 667200
[2023-06-20] MEDS: Lactated Ringers 1,000 ML 15 ML IV (13:57)
--- NOTE | 2023-06-20 14:20 | PCM.HP.BLA ---
History and Physical Date of Admission: 06/20/23 Date of Service: 06/14/23 MR#: [id number] Acct: [id number] Name: LEON LUONG Rep #: [id number] : 1980 Provider: Dr. Fantasma Romo MD Age/Sex: 42/F Location: [facility] Status: Signed Intake Vital Signs 06/06/2309:11 Height 5 ft 7 in Intake Visit Reasons: LUMPECTOMY 06-06 Chief Complaint: follow-up lumpectomy Freight Inspector Required: No Accompanied by: Is patient in pain?: Yes (pain with movement ) Pain scale (1-10): 4 Allergies No Known Allergies Allergy (Verified 06/14/23 14:15) Subjective Details: Patient presents for first postoperative visit following right breast lumpectomy and sentinel lymph node biopsy on 06/06/2023. She reports that overall she is feeling well postoperatively. She notes that yesterday was her first day back at school. 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 She particularly notes some right armpit tenderness and some numbness in the inner aspect of her arm. She denies any pain or tenderness over the lumpectomy site. She confirms that she is simply enjoyed a sense of relief since surgery. Objective Details: Constitutional: No acute distress, cooperative, appreciative Axilla: Firm and indurated without drainage. There is concern for possible resolving hematoma. There is no warmth or redness. Right breast: Resolving ecchymosis with no tenderness over well-healing transverse lumpectomy site Coding Level of Care Code Global Post Op Diagnoses S/P lumpectomy, right breast Z98.890 Breast cancer, right C50.911 [facility] Medical History (Updated 06/15/23 @ 16:[address] Fantasma Romo MD) Arthritis Cancer Non-smoker Wears partial dentures Surgical History (Updated 06/15/23 @ 16:[address] 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 There is some concern for a possible resolving hematoma of the right axilla where the sentinel lymph node biopsy was done. I also suspect she may have some irritation of her intercostal brachial nerve based on her history. Regarding the suspicion for the hematoma I recommended that she try a heating pad in her armpit to see if this will soften the area and improve her comfort. She is okay to continue [id number] analgesics to help with the discomfort. (2) Breast cancer, right: Status: Acute Comment: This is a 42-year-old female who presents for newly diagnosed infiltrating ductal carcinoma of the right breast. Specifically this is a case of 2 separate lesions in the upper inner quadrant of the right breast measuring 6 and 7 mm, respectively. Immunohistochemical analysis demonstrates that these are strongly ER and [place] positive as well as HER2/floyd negative. She is now status post right breast lumpectomy with sentinel lymph node biopsy. 2 out of 2 sentinel lymph nodes were negative for metastatic carcinoma. Unfortunately her cancer summary pathology shows that despite unremarkable frozen sections she has a positive margin at the deep/lateral margin for invasive ductal carcinoma and this was true even of the additional margin that I sent at the conclusion of the surgery. Beyond this issue, her margin is close posteriorly for DCIS which is identified within 1 mm. Given these pathologic findings I have recommended return to the OR for reexcision of patient's deep posterior and lateral margin and submission for permanent section. Patient was initially discouraged, but when the operation was reviewed, she is receptive. She wishes to be underway as soon as possible. Plan: ? Plan for return to the OR for reexcision of margins at first mutually agreeable date I have examined the patient and the H&P has been reviewed. There are no clinical changes since date of exam. She reports that she has ongoing discomfort under her right armpit despite regular use of heat. This area is examined and there is no signs of infection. She reports that the discomfort seems most pronounced when she tries to lift her arm overhead. I have reiterated to her my suspicion that this is a ongoing irritation of her intercostal brachial nerve and would likely benefit from additional time. I am encouraged that in addition to no signs of infection, the overall area of induration appears smaller in size. I have confirmed our plans for reexcision of margins at her lumpectomy site. There are no further questions from patient or her . Proceed to the operating room for procedure as discussed above.
[2023-06-20] MEDS: Cefazolin 2 GM in 0.9% Normal Saline (100mL Bag) 100 ML IV (14:28)
--- NOTE | 2023-06-20 15:00 | BRBX_PTH ---
PATIENT: LEON LUONG LOC: [facility] [place] U#:[id number] AGE/SX: 42/F ROOM: RE06/20/[address]: Dr. Fantasma Romo MD : 1980 BED: DIS: 06/20/2023 SPEC #: [id number] RECD: 06/21/23 07:48 STATUS: PATY NAHEED #: [id number] ANDRE: 06/20/23 15:[address]: Fantasma Romo DEPT: SURGICAL PATHOLOGY RECD BY: Karen Rowan ENTERED: 06/21/23 07:51 SP TYPE: BREAST BX OTHR DR: Ester Gomez, CORONER-C Tissues: A - Breast, NOS B - Breast, NOS Procedures: Surgery Specimen Level V HEADER OPERATION: Re-excision of margins for right breast mass PRE-OP DIAGNOSIS: S/P lumpectomy, right breast, Right breast cancer TISSUE SUBMITTED: A. A new posterior lateral margin, B. Additional lateral margin MICROSCOPIC DIAGNOSIS A. New posterior-lateral margin, lumpectomy: Ductal carcinoma in situ. See cancer template below. B. Additional lateral margin, lumpectomy: Ductal carcinoma in situ. See cancer template below. AM:dereje 06/26/2023 COMMENT A. DUCTAL CARCINOMA IN SITU SUMMARY: Procedure - lumpectomy Laterality - right breast Size (extent of DCIS): Estimated size (extent) - 2.2 mm Number of blocks - 2 out of 6 Architectural pattern - solid Nuclear grade - 3/3 Necrosis - not identified Margins - uninvolved by DCIS. Distance of closest margin - <1.0 mm from anterior margin. Regional lymph nodes - no lymph nodes found. Microcalcifications - focally present in carcinoma. Additional Pathologic Findings - changes of previous biopsy. Mild fibrocystic change. Ancillary Studies from previous specimen ([id number] / [id number]): ER - positive (>90%, moderate to strong) VT - positive (85%, moderate to strong) Her2 floyd ([facility]) - negative (0) Clinical history - mass of right breast. PATHOLOGIC STAGING: T(DCIS) Nx Mx B. DUCTAL CARCINOMA IN SITU SUMMARY: Procedure - lumpectomy Laterality - right breast Size (extent of DCIS): Estimated size (extent) - 2.5 mm Number of blocks - 2 out of 6 Architectural pattern - solid Nuclear grade - 3/3 Necrosis - not identified Margins - uninvolved by DCIS. Distance of closest margin - <1.0 mm from posterior margin. Regional lymph nodes - no lymph nodes found. Microcalcifications - not identified Additional Pathologic Findings - changes of previous biopsy. Mild fibrocystic change. Ancillary Studies from previous specimen ([id number] / [id number]): ER - positive (>90%, moderate to strong) VT - positive (85%, moderate to strong) Her2 floyd ([facility]) - negative (0) Clinical history - mass of right breast. PATHOLOGIC STAGING: T(DCIS) Nx Mx The above summary is in compliance with [employer] [place] [employer] (CAP) Cancer Protocols Checklist and [place] Joint Committee on Cancer (AJCC), Staging Manual, 8th Ed. B. Immunohistochemistry ([id number]) supports the above diagnosis. MICROSCOPIC DESCRIPTION Slides are reviewed. GROSS DESCRIPTION A - Received in formalin is one container labeled with the patient name and designated new posterior lateral margin, right breast. The specimen consists of a person-white piece of fibroadipose tissue measuring 5.5 x 2.5 x 1 cm. The specimen is inked as follows: superior - blue, inferior - green, and lateral - orange, opposite of lateral - black. The specimen is totally submitted in six cassettes. B - Received in formalin is one container labeled with the patient name and designated Additional lateral margin, right breast. The specimen consists of a person-white piece of fibroadipose tissue measuring 4 x 4.5 x 3.5 cm. The specimen is inked as follows: anterior - yellow, posterior - black, superior - blue, inferior - green, medial - red and lateral - orange. The specimen is totally submitted in six cassettes. The specimen is submitted after additional fixation. / GODFREY:abhishek 06/21/23 TC:0 CPT: 24632 x2
[2023-06-20] MEDS: Bupivacaine Mpf 0.5% 30 ML VIAL (15:32)
--- NOTE | 2023-06-20 15:32 | PCM.OPRPT ---
Report of Operation Date of Procedure: 06/20/23 Pre-Operative Diagnosis: Right breast cancer with positive lateral margin for invasive ductal carcinoma and close deep margin for ductal carcinoma in situ Post-Operative Diagnosis: Same Surgery/Procedure Performed:: Reexcision of margins Description of Surgical Findings:: ? Seroma with mild blue tint encountered in surgical cavity ? Posterior remained cavity marked with clips Surgeon: Fantasma Romo dry wall nailer: Danita Foster Type of Anesthesia: General/Supplemental Anesthesiologist: Yaniv Woods Specimen's removed: 1. New posterolateral margin 2. Additional lateral margin (Suture marking superior and lateral margins?short superior and long lateral) Drains: None Estimated Blood Loss (mL): 3 Description of Procedure: After appropriate identification in the preoperative holding area and the patient's consents were confirmed she was brought to the operating room where she was positioned supine on the operating room table. There she was administered preoperative antibiotics and was administered sedation by anesthesia. Patient's right breast and axilla were prepped and draped in usual sterile fashion. Formal timeout followed to confirm patient and procedure. Patient's prior lumpectomy cavity incision was reanesthetized with local anesthetic then the incision was sharply reopened. We encountered some seroma fluid with a blue tint that was suctioned free of the cavity. We also identified the vascular clips along the posterior aspect of the cavity. Allis clamps were applied to the posterior lateral aspect of the tissue in the cavity and using cautery I circumferentially removed this breast tissue at an approximate depth of 1.5-2 cm as uniformly as I could. Once the specimen was removed it was marked with sutures designating short superior and long lateral. This new posterior margin was formed with a focus inferior and laterally, however there appeared to be some additional lateral aspect of the cavity that was not taken with this first new margin so I made the decision to proceed with an additional lateral margin. This new lateral margin was also marked short superior and long lateral. Specimens were passed off the field for permanent submission to pathology. The cavity was irrigated with water to lyse any free tumor cells. Hemostasis was confirmed and selective electrocautery was applied to areas that suggested the potential for postoperative bleeding. Then additional titanium vascular clips were placed in the posterior aspect of the surgical cavity. The cavity was closed with interrupted deep dermal sutures using 3-0 Vicryl followed by a running subcuticular with 4-0 Monocryl. Dermabond was applied as a dressing. Complications None Admit VTE Documentation VTE Mechan Device Prophylaxis: SCD's Procedures Integumentary [id number]: [id number] Partial mastectomy
--- NOTE | 2023-06-20 15:44 | DCINST_ITS ---
Discharge Instructions Diet Discharge Diet: No restrictions Activity Discharge Activity: May Drive (No driving while using narcotic pain medication) May shower in (days): 1 Ice area for (Minutes): 20 Lifting Restrictions: Limit lifting with right upper extremity to no more than 5 pounds Dressing / Incision Call your doctor if your incision/area has: Continuous Slow Oozing, Sudden Increased Bleeding, Increased Pain/ Swelling, Increased Redness, Foul Smelling Discharge and Swelling at the incision site Call your doctor if you observe: Fever of 101 or Higher Suture Line Care: Avoid Pulling/Pushing Cleanse incision/area with: Soap & Water Follow Up Care Please Follow Up With: Fantasma Romo MD When: 7 days postop Test Results: Test results from this visit will be discussed in further detail at your follow- up appointment, if applicable. Discharge Plan Admission Primary Reason for Your Visit: Reexcision of lumpectomy margins Attending Provider: Fantasma Romo Primary Care Provider: Ester Gomez NP Discharge Orders/Prescriptions Prescriptions: No Action venlafaxine [Effexor XR] 37.5 mg capsule,extended release 24hr 37.5 mg PO DAILY cholecalciferol (vitamin D3) 125 mcg (5,000 unit) capsule 125 mcg PO DAILY cetirizine [24Hour Allergy] 10 mg tablet 10 mg PO DAILY Referrals / Follow Up: Ester Gomez NP, MEDICAL INFORMATION OFFICER-C [Primary Care Provider] - Disposition Disposition (needs filled in before D/C Order can be placed): Home, Self Care
[2023-06-20 15:46] VITALS: BP 118/77; BP 93/56; PULSE 104; RESP 18; TEMP 36.3; O2SAT 93
[2023-06-20 16:00] VITALS: BP 118/77; BP 82/50; PULSE 89; RESP 16; O2SAT 94
[2023-06-20 16:11] VITALS: BP 106/69; BP 118/77; PULSE 82; RESP 18; TEMP 36.2; O2SAT 95
[2023-06-20 16:36] VITALS: BP 118/77
--- NOTE | 2023-06-21 | IMM_PTH ---
PATIENT: LEON LUONG [place] [facility] [id number] AGE/SX: 42/F ROOM: RE06/20/[address]: Dr. Fantasma Romo MD : 1980 BED: DIS: 06/20/2023 SPEC #: [id number] RECD: 06/26/23 08:05 STATUS: PATY REMartin #: [id number] ANDRE: 06/21/23 00:[address]: Fantasma Romo DEPT: IMMUNOHISTOCHEMISTRY RECD BY: Lynn Jordan ENTERED: 06/26/23 08:06 SP TYPE: IMMUNO OTHR DR: Estre Gomez, RN ONCOLOGY-C Tissues: B - Right breast, NOS Procedures: E-CAD (initial) CK8 (add) KI-67 (add) Pankeratin (add) PHYSICIAN & INSTITUTION [place] [id number] SPECIMEN INFORMATION: Tissue Source: B - Right breast, additional lateral margin Clinical Info: Status post lumpectomy right breast, right breast cancer Specimen Number: [id number] CPT code: 04695, 19573 x3 METHODOLOGY: Deparaffinized sections of prefer/formalin-fixed tissue or PAP/DQ stained slides are incubated with monoclonal/polyclonal antibodies/oligonucleotide probes. Localization is made via biotin free immunoperoxidase method. Appropriate controls are performed and reacted as expected. Results on target cell population are indicated in the following table: RESULTS: ANTIBODY / CLONE RESULT Block B1 E-Cad (ECH-6) positive, dim AE1-3 (AE1/AE3/PCK26) positive CK8 (67ibclX32) positive, dim Ki-67 (30-9) positive, <1% These tests were developed and their performance characteristics determined by [facility]. They may not have been cleared or approved by the [place]. Food and Drug Administration. The FDA has determined that such clearance or approval is not necessary. The above immunohistochemical/dualISH markers are ordered and reviewed by the Pathologist. INTERPRETATION: B. 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 AM:dereje 06/26/2023
== END 2023-06-20 16:58 | disposition home or self-care (01) ==
LOC: SDC 13:20 → AC 13:22
PROVIDERS: Anesthesiology; PCP Nurse Practitioner Family; Visit Provider Surgery
PROC: (CPT 11602; principal; 2023-06-20 14:45)
DX: C50.911 Malignant neoplasm of unspecified site of right female breast (principal); M79.601 Pain in right arm; Z80.3 Family history of malignant neoplasm of breast
CPT/HCPCS: 11602; 00300; 81025; 88305; 88307; 88341; 88342; A4648; J7120; J2405

== ENCOUNTER → 2023-09-05 | Outpatient (CLI) | payer OTHER, SELFPAY ==
--- OUTSIDE RECORDS SUMMARY | 2023-09-05 14:29 | XMS RPT_ITS | CCD ---
Author Name Unknown Address [address] [place] [address] Organization [facility] Care Team Providers Care Adult Education Instructor Name Role Phone Annette Yao MD Unavailable [phone] Rosy Castillo MD Primary Care Provider [phone] Pending Provider Unavailable Unavailable JOHNSON PERKINS Referring Unavailable JOHNSON PERKINS Attending Unavailable ROSY CASTILLO Primary Care Unavailable Rosy Castillo MD Primary Care Provider [phone] Maddie, Ms. Johnson Fontana Attending Unavail able Pending, Provider Primary Care Unavailable Maddie, Johnson Anne Attending Unavail able Pending, Provider Primary Care Unavailable Maddie, Johnson Anne Attending Unavail able Pending, Provider Primary Care Unavailable Maddie, Ms. Johnson Fontana Attending Unavail able Pending, Provider Primary Care Unavailable Maddie, Ms. Johnson Fontana Attending Unavail able Pending, Provider Primary Care Unavailable Maddie, Ms. Johnson Fontana Attending Unavail able Pending, Provider Primary Care Unavailable Pending, Provider Primary Care Unavailable Maddie, Ms. Johnson Fontana Attending Unavail able Maddie, Ms. Johnson Fontana Attending Unavail able Pending, Provider Primary Care Unavailable Pending, Provider Primary Care Unavailable Maddie, Ms. Johnson Fontana Attending Unavail able Maddie, Ms. Johnson Fontana Attending Unavail able Pending, Provider Primary Care Unavailable Pending, Provider Primary Care Unavailable Maddie, Ms. Johnson Fontana Attending Unavail able Pending, Provider Primary Care Unavailable Maddie, Ms. Johnson Fontana Attending Unavail able Ms. Johnson Perkins Attending Unavail able Pending, Provider Primary Care Unavailable ANGELA JARAMILLO Admitting Unavailab ANGELA Lopez Attending Unavailab ROSY Rivas Primary Care Unavailable TOMDEYANIRA, ROSY CALVIN Primary Care Unavailable JOHNSON PERKINS Admitting Unavailable JOHNSON PERKINS Referring Unavailable YO, ROSY SIMPSON Primary Care Unavailable JOHNSON PERKINS Attending Unavailable ANGELA JARAMILLO Attending Unavailab oren MENDIETAMaribell ROSY SIMPSON Primary Care Unavailable TOMDEYANIRA, ROSY SIMPSON Primary Care Unavailable ANGELA JARAMILLO Attending Unavailab oren ALLENROSY MCMILLAN Primary Care Unavailable SEFERINO PARMAR Attending Unavailable ROSY CASTILLO Primary Care Unavailable SEFERINO PARMAR Attending Unavailable ALLENROSY MCMILLAN Primary Care Unavailable JOHNSON PERKINS Attending Unavailable Rosy Castillo MD Primary Care Provider ESTER AUGUSTINE Admitting Unavailable CARLEE AUGUSTINEA Attending Unavailable FAWN, ESTER Primary Care Unavailable CARLEE AUGUSTINEA Consulting Unavailable PROVIDER, UNKNOWN Consulting Unavailable Fawn TRIXIE, Ester K Primary Care Provider Fantasma Romo MD Unavailable Alfredo BURGOS MD, Radha Unavailable ADITI FRANK Attending Unavailable ALLENDEYANIRA ROSY CALVIN Primary Care Unavailable FAWN, ESTER K Referring Unavailable ADITI FRANK Referring Unavailable LOLLY DÍAZ Attending Unavailable FAWN, ESTER K Primary Care Unavailable FAWN, ESTER K Primary Care Unavailable ADITI FRANK Attending Unavailable FAWN, ESTER K Referring Unavailable FAWN, ESTER K Primary Care Unavailable ANAMARIA NEVES Attending UnavailRADHA Shafer MD Referring Unavailable FAWN, ESTER K Primary Care Unavailable FAWN, ESTER K Primary Care Unavailable ABRIL GUZMAN Attending Unavailable ADITI FRANK Referring Unavailable RADHA GALLO MD Attending Unavailable RADHA GALLO MD Referring Unavailable FAWN, ESTER K Primary Care Unavailable RADHA GALLO MD Referring Unavailable FAWN, ESTER K Primary Care Unavailable RADHA GALLO MD Attending Unavailable FAWN, ESTER K Primary Care Unavailable RADHA GALLO MD Referring Unavailable FAWN, ESTER K Primary Care Unavailable FAWN, ESTER K Primary Care Unavailable ABRIL GUZMAN Attending Unavailable RADHA GALLO MD Referring Unavailable ESTER AUGUSTINE Primary Care Unavailable RADHA GALLO MD Referring Unavailable ESTER AUGUSTINE Primary Care Unavailable RADHA GALLO MD Attending Unavailable ESTER AUGUSTINE Primary Care Unavailable ADITI FRANK Referring Unavailable CARLEE AUGUSTINEA Maribell Primary Care Unavailable VIDYA CURTIS Referring Unavailable RADHA GALLO MD Referring Unavailable ESTER AUGUSTINE Primary Care Unavailable ESTER AUGUSTINE Primary Care Unavailable RADHA GALLO MD Attending Unavailable RADHA GALLO MD Referring Unavailable ESTER AUGUSTINE Primary Care Unavailable RADHA GALLO MD Referring Unavailable ESTER AUGUSTINE Primary Care Unavailable RADHA GALLO MD Referring Unavailable ESTER AUGUSTINE Primary Care Unavailable Medications Current Medications Medication Drug Class(es) Dates Sig (Normalized) Sig (Original) aspirin 81 mg delayed release oral tablet (1 source) Platelet Aggregation Inhibitor, Nonsteroidal Anti-inflammatory Drug Start: 08-02-2022 End: 09-01-2022 take 1 tablet by mouth twice daily aspirin 81 MG EC tablet Take 1 (one) tablet (81 mg total) by mouth 2 (two) times a day . 60 tablet 0 08/02/2022 09/01/2022 Active indomethacin 75 mg extended release oral capsule (5 sources) Nonsteroidal Anti-inflammatory Drug Start: 05-29-2022 End: 08-27-2022 take 1 capsule by mouth twice daily at mealtime indomethacin (INDOCIN SR) 75 mg CR capsule Take 1 (one) capsule (75 mg total) by mouth 2 (two) times a day with meals . 60 capsule 2 05/29/2022 08/27/2022 Active multivitamin (THERAGRAN) per tablet (3 sources) Start: 02-28-2022 take 1 tablet by mouth once multivitamin (THERAGRAN) per tablet Take 1 (one) tablet by mouth . 0 02/28/2022 Active Completed/Discontinued Medications Medication Drug Class(es) Dates Sig (Normalized) Sig (Original) cetirizine hydrochloride 10 mg oral capsule (10 sources) Histamine-1 Receptor Antagonist Cetirizine (ZYRTEC) 10 mg cap Take by mouth. 0 Active Problems Problem Classification Problem Date Documented Da te Episodic/Chronic Anxiety disorders (5 sources) Anxiety; Translations: [Anxiety disorder, unspecified] Onset: 06-12-2022 06-12-2022 Chronic Cancer of breast (14 sources) Malignant neoplasm of upper-inner quadrant of female breast; Translations: [Malignant neoplasm of upper-inner quadrant of right female breast] Onset: 07-13-2023 07-13-2023 Chronic Joint disorders and dislocations; trauma-related (20 sources) Disorder of patellofemoral joint; Translations: [Chondromalacia patellae, left knee] Onset: 06-26-2022 Chronic Malaise and fatigue (1 source) Other fatigue; Translations: [Other fatigue] Onset: 01-15-2023 Episodic Menstrual disorders (13 sources) Break-through bleeding; Translations: [Dysmenorrhea] Onset: 10-23-2016 06-01-2017 Chronic Other bone disease and musculoskeletal deformities (1 source) Other specified disorders of cartilage, lower leg; Translations: [Other specified disorders of cartilage, lower leg] Onset: 06-05-2022 Episodic Other connective tissue disease (1 source) Other specified disorders of synovium, left knee; Translations: [Other specified disorders of synovium, left knee] Onset: 06-05-2022 Episodic Other female genital disorders (3 sources) Abnormal uterine and vaginal bleeding, unspecified; Translations: [Abnormal uterine and vaginal bleeding, unspecified] Onset: 06-01-2017 06-01-2017 Chronic Other non-traumatic joint disorders (18 sources) Instability of joint of left knee; Translations: [Other instability, left knee] Onset: 06-26-2022 Episodic Other non-traumatic joint disorders (14 sources) Pain in left knee; Translations: [Left knee pain] Onset: 07-28-2022 Episodic Other non-traumatic joint disorders (8 sources) Other instability, left knee; Translations: [Other instability, left knee] Onset: 06-05-2022 Episodic Other non-traumatic joint disorders (1 source) Effusion, left knee; Translations: [Effusion, left knee] Onset: 06-05-2022 Episodic Other nutritional; endocrine; and metabolic disorders (1 source) Obesity, unspecified; Translations: [Obesity, unspecified] Onset: 01-15-2023 Chronic Other nutritional; endocrine; and metabolic disorders (1 source) Abnormal weight gain; Translations: [Abnormal weight gain] Onset: 01-15-2023 Episodic Other screening for suspected conditions (not mental disorders or infectious disease) (5 sources) Encounter for screening for other suspected endocrine disorder; Translations: [Encounter for screening for diseases of the blood and blood-forming organs and certain disorders involving the immune mechanism] Onset: 01-15-2023 Episodic Other upper respiratory disease (1 source) Other allergic rhinitis; Translations: [Other allergic rhinitis] Onset: 01-15-2023 Chronic Residual codes; unclassified (10 sources) Edema of left lower limb; Translations: [Edema] Episodic Residual codes; unclassified (1 source) Localized edema; Translations: [Localized edema] Onset: 07-28-2022 Episodic Residual codes; unclassified (2 sources) Other specified postprocedural states; Translations: [Other specified postprocedural states] Onset: 08-02-2022 Episodic Residual codes; unclassified (2 sources) Pain, unspecified; Translations: [Pain, unspecified] Onset: 05-29-2022 Episodic Residual codes; unclassified (2 sources) Family history of breast cancer; Translations: [Family history of malignant neoplasm of breast] 07-27-2023 Episodic Residual codes; unclassified (2 sources) Estrogen receptor positive status [ER+]; Translations: [Malignant neoplasm of upper-inner quadrant of right breast in female, estrogen receptor positive (HCC)] Onset: 07-13-2023 Episodic Sprains and strains (1 source) Sprain of medial collateral ligament of left knee, initial encounter; Translations: [Sprain of medial collateral ligament of left knee, init] Onset: 06-05-2022 Episodic Unclassified (2 sources) Results Onset: 06-12-2022 Results Test Name Value Interpretation Reference Range Facil ity Vital Signs Date Time Vital Sign Value Performing Clinician Faci lit 07-21-2022 13:18-0500 Diastolic blood pressure 79 mm[Hg] Angela Jaramillo MD Work Phone: [facility] 07-21-2022 13:18-0500 Heart rate 73 /min Angela Jaramillo MD Work Phone: [facility] 07-21-2022 13:18-0500 Systolic blood pressure 119 mm[Hg] Angela Jaramillo MD Work Phone: [facility] 06-01-2017 09:04-0400 BMI (Body Mass Index) 27.56 kg/m2 Annette Yao MD [facility] 06-01-2017 09:04-0400 BP Diastolic 72 mm[Hg] Annette Yao MD [facility] 06-01-2017 09:04-0400 BP Systolic 106 mm[Hg] Annette Yao MD [facility] 06-01-2017 09:04-0400 Height 170.18 cm Annette Yao MD [facility] 06-01-2017 09:04-0400 Pulse (Heart Rate) 61 /min Annette Yao MD [facility] 06-01-2017 09:04-0400 Weight 79.83 kg Annette Yao MD [facility] Encounters Encounter Date Encounter Type Care Provider Facility Start: 09-04-2023 End: 09-04-2023 ambulatory RADHA GALLO MD Facility:[facility] Start: 09-03-2023 End: 09-03-2023 ambulatory RADHA GALLO MD Facility:[facility] Start: 08-31-2023 End: 08-31-2023 ambulatory RADHA GALLO MD Facility:[facility] Start: 08-30-2023 End: 08-31-2023 ambulatory ESTER AUGUSTINE Facility:[facility] Start: 08-30-2023 End: 08-30-2023 ambulatory RADHA GALLO MD Facility:[facility] Start: 08-29-2023 End: 08-29-2023 ambulatory RADHA GALLO MD Facility:[facility] Start: 08-28-2023 End: 08-28-2023 ambulatory RADHA GALLO MD Facility:[facility] Start: 08-27-2023 End: 08-27-2023 ambulatory RADHA GALLO MD Facility:[facility] Start: 08-24-2023 End: 08-24-2023 ambulatory RADHA GALLO MD Facility:[facility] Start: 08-23-2023 End: 08-23-2023 ambulatory RADHA GALLO MD Facility:[facility] Start: 08-21-2023 End: 08-21-2023 ambulatory ESTER AUGUSTINE Facility:[facility] Start: 08-07-2023 End: 08-07-2023 ambulatory ESTER Maribell FAWN Facility:[facility] Start: 08-03-2023 End: 08-03-2023 ambulatory ESTERRalph AUGUSTINE Facility:[facility] Start: 07-28-2023 End: 07-29-2023 ambulatory ESTERRalph AUGUSTINE Facility:[facility] Start: 07-27-2023 End: 07-27-2023 ambulatory Lolly Díaz [facility] Work Phone: [facility] Procedures Date Procedure Procedure Detail Performing Clinician Start: 06-01-2017 End: 06-01-2017 *CBC with Differential Annette perdue MD Work Phone: Start: 06-01-2017 End: 06-01-2017 Thyrotropin [Units/volume] in Serum or Plasma Annette Yao MD Work Phone: Plan of Treatment Date Care Activity Detail Author Start: 07-27-2023 End: 10-26-2023 MISC SEND OUT TST 1 MISC SEND OUT TST 1 Lab Routine Malignant neoplasm of upper-inner quadrant of right breast in female, estrogen receptor positive (HCC) Expected: 07/27/2023, Expires: 10/26/2023 [facility] Work Phone: Immunizations Immunization Date Immunization Notes Care Provider Fa lala 07-04-2021 influenza, injectabl e, quadrivalent, preservative free Aditi Frank MD Work Phone: [facility] 07-04-2021 influenza virus vaccine, unspecified formulation Aditi Frank MD Work Phone: [facility] 05-20-2012 influenza virus vaccine, unspecified formulation Aditi Frank MD Work Phone: [facility] 07-01-2008 influenza virus vaccine, unspecified formulation Aditi Frank MD Work Phone: [facility] Work Phone: Payers Date Payer Category Payer Private Health Insurance [id number] 2015 Unknown [id number] 2015 Unknown [id number] 1980 Unknown [id number] 2.16. [id number] 1980 Unknown [id number] 2.16.8 40.1.185497.3.579.2.1068 1980 Unknown [id number] 2.16.8 40.1.229577.3.579.2.1068 1980 Unknown [id number] 2.16.8 40.1.051558.3.579.2.1068 1980 Unknown [id number] 2.16.8 40.1.504843.3.579.2.1068 1980 Unknown [id number] 2.16.8 40.1.172369.3.579.2.1068 1980 Unknown [id number] 2.16.8 40.1.566196.3.579.2.1068 1980 Unknown [id number] 2.16.8 40.1.046464.3.579.2.1068 1980 Unknown [id number] 2.16.8 40.1.182191.3.579.2.1068 1980 Unknown [id number] 2.16.8 40.1.589032.3.579.2.1068 1980 Unknown [id number] 2.16.8 40.1.234650.3.579.2.1068 1980 Unknown [id number] 2.16.8 40.1.764996.3.579.2.1068 1980 Unknown [id number] 2.16.8 40.1.631967.3.579.2.1068 1980 Unknown [id number] 2.16.8 40.1.733702.3.579.2.1068 1980 Unknown [id number] 2.16. 840.1.839322.3.579.2. 1980 Unknown [id number] 2.16. 840.1.835624.3.579.2. 1980 Unknown [id number] 2.16. 840.1.297831.3.579.2. 1980 Unknown [id number] 2.16. 840.1.762755.3.579.2. 1980 Unknown [id number] 2.16. 840.1.721049.3.579.2. 1980 Unknown [id number] 2.16. 840.1.895313.3.579.2. 1980 Unknown [id number] 2.16. 840.1.779320.3.579.2. 1980 Unknown [id number] 2.16. 840.1.167547.3.579.2. 1980 Unknown [id number] 2.16.84 0.1.881307.3.579.2.651 Social History Date Type Detail Facility Start: 12-11-2014 End: 02-07-2021 Tobacco smoking status NHIS Never smoked tobacco [facility] Start: 12-11-2014 End: 02-07-2021 Tobacco use and exposure Smokeless tobacco non-user [facility] Start: 06-12-2022 End: 07-13-2023 Alcohol intake Current drinker of alcohol (finding) [facility] Start: 06-12-2022 End: 07-13-[address] [facility] Start: 1980 Sex Assigned At Not on file O [facility] Start: 05-26-2022 End: 08-18-2022 Exposure to SARS-CoV-2 (event) Not sure [facility] Start: 07-13-2023 Tobacco use panel [facility] National Score (1-10 0), lower number is lower risk 72 [facility] Start: 10-23-2016 Alcohol Comment Isrrael [facility] Clinical Notes 09-02-2015 to 08-29-2023 Aditi Frank MD - 07/27/2023 2:01 PM Lolly Mendoza [facility] - 07/27/2023 1:03 PM ESTTelephone Encounter - Elsi Keerthi Rosas RN - 07/26/2023 11:10 AM EST Note Date & Type Note Facility 08-29-2023 Note HNO ID: [id number] Author: RADHA GALLO MD Service: ? 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 COURSE: adjuvant AREA TREATED: Right breast CURRENT DOSE: 1335 cGy in 5 fx PLANNED DOSE: 5005 cGy in 20 fx Status: Patient states there is no possibility she is at this time SUBJECTIVE: She has mild fatigue. EXAM: KPS: 90 General Appearance: Alert and oriented. No acute distress. IMAGING/LAB RESULTS: None Treatment chart checked: Yes Patient treatment site reviewed and verified:Yes Port films reviewed and current:Yes Medications started: None ASSESSMENT/PLAN: Clinically stable. Toxicity within expected parameters. Continue radiation treatment as planned. Radha Gallo MD [facility] 08-21-2023 Note HNO ID: [id number] Author: RADHA GALLO MD Service: Radiation Oncology Author Type: Physician Type: Progress Notes Filed: 08/22/2023 10:19 Note Text: LEON LUONG [id number] 08/21/2023 [facility] Department of Radiation Oncology [facility] RADIATION ONCOLOGY SIMULATION NOTE DATE OF SIMULATION: 08/21/2023 MACHINE: Siemens Definition CT Simulator Diagnosis: Stage IA, pT1b pN0 (sn), grade 2 invasive ductal carcinoma of the right breast s/p right breast lumpectomy and sentinel node biopsy on 06/06/23 and re-excision on 06/20/23. AREA:Right Breast. PATIENT POSITION: Supine. CONTRAST: None PROTOCOL: None BLOCKING: Custom blocking to be determined at treatment planning. FIXATION DEVICE: In order to achieve accurate and reproducible treatments, the patient is to be immobilized with AIO orfit system. PROCEDURE: A time-out was conducted and recorded by the therapist. Patient was simulated on the CT scanner for external beam radiation therapy. Treatment site was marked by the simulation therapist. ASSESSMENT/PLAN: Patient tolerated simulation procedure well. Treatments will be initiated after treatment planning. The patient is scheduled for a verification simulation on the treatment machine to ensure proper set-up and field arrangement is correct prior to the first treatment of primary and boost matos if applicable. Electronically Signed Radha Gallo M.D./priyanka :19 AM [facility] 08-21-2023 Note HNO ID: [id number] Author: RADHA GALLO MD Service: Radiation Oncology Author Type: Physician Type: Progress Notes Filed: 08/22/2023 10:18 Note Text: LEON LUONG [id number] 08/21/2023 [facility] Department of Radiation Oncology Treatment Planning Note For reasons stated in the consult note, Leon Luong is a candidate for radiation therapy. Based on review and interpretation of the relevant diagnostic studies together with the exam findings, Leon Luong was simulated on 08/21/2023 at which time the target volume and/or requisite matos were delineated, as indicated in the simulation note, to be treated according to the prescription. The treatment target and organs at risk were contoured on the simulation scan. After reviewing multiple treatment plans with dosimetry, the best plan was approved to deliver the prescribed course of radiation to the target area using 3D planning to allow for the best isodose distribution, treating to the 98% isodose line with 6,10 MV and 2 segmented matos. Custom MLC asym jaws were the treatment device(s) used to shape/modify the beams. Limiting dose to normal tissue was confirmed upon review of the calculated dose volume histogram. A completed summary of this plan dated 08/22/2023 incorporated herein by reference includes dose, beam arrangements, energy, blocking, isodose distribution, and/or ports and DVH. Electronically Signed Radha Gallo M.D. :18 AM [facility] 08-10-2023 Note HNO ID: [id number] Author: Aditi Frank MD Service: ? Author Type: Physician Type: Progress Notes Filed: 08/10/2023 10:50 AM Note Text: maribell [facility] 08-09-2023 Note HNO ID: [id number] Author: Abril Guzman MD Service: ? Author Type: Physician Type: Progress Notes Filed: 08/09/2023 10:03 PM Note Text: Breast Cancer Consult Note SERVICE DATE: August 03, 2023 CHIEF COMPLAINT: Leon Luong is a 42 year old female referred by Aditi Frank MD, for my opinion regarding the management of screening detected breast cancer. HISTORY OF PRESENT ILLNESS: Ms Luong is a 42 year old premenopausal woman who was diagnosed with Stage IA (pT1bN0) ER-positive, RI-positive, HER2-negative IDC of the right breast in 05/2023. She is now s/p right lumpectomy/SLNBx and presents today for initial medical oncology opinion. Patient had screening mammogram done in Summer 2021 and reportedly there was a right breast abnormality that was thought to be a benign change however 1 year later at time of screening mammogram in 02/2023, the area had doubled in size. On ultrasound, the mass was 8mm x 6mm x6mm at the 2:00 position and an adjacent nodule was present measuring 6mmx 6mm x 2mm. Breast MRI was done 04/20/23 showing 1.2 cm irregular enhancing mass in the upper inner quadrant of the right breast at approximately the 2:00 position 3.5 cm behind the nipple and 2.5 cm above the nipple. Lesion is approximately 3.5 cm medial to the ovoid enhancing mass measuring 6 mm in diameter located approximately 9 mm above the larger irregular enhancing mass. Both of these lesions are suspicious and biopsy was recommended. Biopsy completed 05/17/23 showing IDC, grade 2, ER >90%, RI >85%, HER2-negative ([facility] 0). She underwent right lumpectomy/SLNBx on 06/06/2023 showing 2 foci of invasive carcinoma measuring 1cm and 5mm. The cancer was grade 2 and 0/2 SLN were involved. She had positive margins (deep, lateral) so returned to the OR for margin re-excision on 06/20/23. 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 Leon has met with Dr Frank and Dr Gallo. She also has met with genetics and testing has been sent with results pending. She is leaning towards completing RT and avoiding future breast surgery. She continues to have regular periods. No breast concerns at this time. PAST MEDICAL HISTORY: PAST MEDICAL HISTORY Diagnosis Date FRACTURE 1988 RIGHT ARM, PLAYGROUND ACCIDENT Malignant neoplasm of upper-inner quadrant of right breast in female, estrogen receptor positive (HCC) (HCC) 07/13/2023 Migraine, unspecified, with intractable migraine, so stated, without mention of status migrainosus Migraine Varicosities BOTH LEGS PAST SURGICAL HISTORY: PAST SURGICAL HISTORY Procedure Laterality Date ARTHROSCOPY KNEE DIAGNOSTIC W/WO SYNOVIAL BX SPX left knee arthroscopy and lateral release. BX OF BREAST; INCISIONAL Right 05/16/2023 DELIVERY ONLY 07/2008, 11/2010 , low cervical PAST SURGICAL HISTORY OF 1997 WISDOM TEETH CURRENT MEDICATIONS: venlafaxine ER (EFFEXOR XR) 37.5 mg 24 hr capsule cholecalciferol (VITAMIN D-3) 5,000 unit tab Take 5,000 Units by mouth once daily. Cetirizine (ZYRTEC) 10 mg cap Take by mouth. norgestimate 0.25 mg-ethinyl estradiol 35 mcg (SPRINTEC) 0.25-35 mg-mcg per tablet Take only active pills discard inactive and start new immediately (Patient not taking: Reported on 07/13/2023) ALLERGIES/INTOLERANCES: ALLERGIES No Known Allergies FAMILY HISTORY: FAMILY HISTORY Problem Relation Age of Onset Lipids Mother Heart Father CA Alcohol/Drug Father Coronary Artery Disease Father other (Kidney Stents and Stretching) Father Lipids Brother Lipids Maternal Grandfather Cancer Paternal Grandmother Coronary Artery Disease Paternal Grandfather Breast Cancer Paternal Aunt Ovarian cancer No Family History SOCIAL HISTORY: Patient is and has 2 children. 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 REVIEW OF SYSTEMS: Complete 10 system ROS done and negative except as stated above in the HPI. PHYSICAL EXAM: BP 140/87 Pulse 79 Temp 36.7 ?C (98 ?F) (Temporal) Resp 18 Ht 169.4 cm (5' 6.69 ) Wt 97.2 kg (214 lb 4.6 oz) LMP 10/09/2016 SpO2 99% BMI 33.87 kg/m2 Body mass index is 33.87 kg/m?. ECO- Fully active, able to carry on all pre-disease performance w/o restriction. General: well appearing woman in NAD HEENT: Head normocephalic and atraumatic. EOMI. Oropharynx clear. Neck: supple, no cervical or supraclavicular LAD Breast: Right breast free of concerning masses or skin changes. Left breast free of concerning masses or skin changes. No palpable axillary lymphadenopathy bilaterally. Skin: warm, dry and intact without any concerning lesions Neuro: strength and sensation grossly intact, no focal deficits IMPRESSION: Ms Luong is a 42 year old premenopausal woman who was diagnosed with Stage IA (pT1bN0) ER-positive, RI-positive, HER2-negative IDC of the right breast in 05/2023. She is now s/p right lumpectomy/SLNBx and presents (more content not included)... [facility] 08-07-2023 Note HNO ID: [id number] Author: Silvia Bui LPN Service: ? Author Type: LICENSED NURSE Type: Progress Notes Filed: 08/07/2023 1:02 PM Note Text: DATE OF PHOTOS: 08/07/2023 Body Part: Breasts Silvia Bui LPN August 07, 2023 1:02 PM [facility] 08-07-2023 Note HNO ID: [id number] Author: Anamaria Neves MD Service: ? Author Type: Physician Type: Progress Notes Filed: 08/08/2023 5:39 PM Note Text: [facility] Department of Plastic Surgery BREAST RECONSTRUCTION EVALUATION Name: Leon Luong : 1980 Comorbidities: None Type of Mastectomy: Bilateral Mastectomy Side of Diagnosis: right Prior Breast Surgery: Right Lumpectomy, re-incision same spot Prior Abdominal Surgery: Caesarean section History of Bleeding Disorder: No History of DVT/Pulmonary Embolism: No History of MRSA: No MRSA Infection History of Diabetes: No History of Sleep Apnea: No History of HTN: No History of Nicotine Use: No CC: breast cancer HPI: Leon Luong is a 42 year old female that presents today for breast reconstruction evaluation. Leon Luong was found to have right breast cancer by recent biopsy. She would like to learn more about her options for reconstruction decide if she would like to proceed with reconstructive surgery. The patient has elected to proceed with Bilateral Mastectomy. Current Bra Size: 38 B Date of diagnosis: 05/22/2023 Breast Pathology: Genetic Testing Results: N/A- results pending Radiation Therapy: No Chemotherapy: No Breast Surgeon: Dr. Frank Oncologist: Dr. Langford/[facility] Prior Mammogram: Yes, date: 03/20/2023 Family History of Breast Cancer: Yes: paternal aunt Family History of Bleeding Disorder: Yes- First cousin-hemophiliac OB HISTORY: OB History T2 L2 SAB0 IAB0 Ectopic0 Multiple0 Live Births1 PMH: PAST MEDICAL HISTORY Diagnosis Date FRACTURE 1987 RIGHT ARM, PLAYGROUND ACCIDENT Malignant neoplasm of upper-inner quadrant of right breast in female, estrogen receptor positive (HCC) 07/13/2023 Migraine, unspecified, with intractable migraine, so stated, without mention of status migrainosus Migraine Varicosities BOTH LEGS PSH: PAST SURGICAL HISTORY Procedure Laterality Date ARTHROSCOPY KNEE DIAGNOSTIC W/WO SYNOVIAL BX SPX left knee arthroscopy and lateral release. BX OF BREAST; INCISIONAL Right 05/16/2023 DELIVERY ONLY 07/2008, 11/2010 , low cervical PAST SURGICAL HISTORY OF 1998 WISDOM TEETH Social History Tobacco Use Smoking status: Never Smokeless tobacco: Never Vaping Use Vaping Use: Never used Substance Use Topics Alcohol use: Yes Comment: Socially Drug use: No Breast Fed: Yes REVIEW OF SYSTEMS: ROS Meds: Current Outpatient Medications Medication Sig Dispense Refill venlafaxine ER (EFFEXOR XR) 37.5 mg 24 hr capsule Cetirizine (ZYRTEC) 10 mg cap Take by mouth. cholecalciferol (VITAMIN D-3) 5,000 unit tab Take 5,000 Units by mouth once daily. norgestimate 0.25 mg-ethinyl estradiol 35 mcg (SPRINTEC) 0.25-35 mg-mcg per tablet Take only active pills discard inactive and start new immediately (Patient not taking: Reported on 07/13/2023) 1 Package 14 No current facility-administered medications for this visit. Use of OTC or Vitamins/Supplements: No PHYSICAL EXAM: LMP 10/09/2016 GENERAL: Well appearing, in no acute distress, speaking in complete sentences. Breast Exam/Assessment: Asymmetry: Minimal Subaxillary Rolls: Yes Notch to Nipple: L 28.5 R 26.5 Nipple to Crease: L 7.5 R 12.5 Base Diameter: L1 3.5 R 13.5 Note: measurements are in centimeters Ptosis: R: Grade II L: Grade II Medial Displacement of the Nipple: None Striae of the breast skin: No Plan: I have counseled patient for greater than 30 minutes on her breast reconstructive options. Planned procedure: Bilateral TE reconstruction. May delay right side based off ICG. Saline-filled Breast Implants: Benefits: Less threatening to your health should one rupture. If an implant does rupture, the patient will know immediately. Risks: Should an implant rupture, the woman will have one or both breasts that appear deflated and will need immediate attention to restore a normal appearance. Greater chance of rippling or wrinkling. This is often considered the greatest downfall of saline implants. Often described as feeling like a ?water balloon.? Silicone Breast Implants: Benefits: Many Women believe they are more natural feeling implants. Generally smoother and softer to the touch. Less likely to wrinkle or ripple than saline implants. If a Silicone implant ruptures the woman will not see a physical difference for some time if at all. Downfall: MRIs needed every 5 years to detect ruptured implants. I have discussed single stage 1 and 2 stage reconstruction with placement of tissue wellness specialist with subsequent permanent implant. She understands that 2 stage reconstruction will require at least 2 surgeries and a matching procedure for the unaffected breast. She understands that she may not be a candidate for (more content not included)... [facility] 07-27-2023 Note HNO ID: [id number] Author: Aditi Frank MD Service: ? Author Type: Physician Type: Progress Notes Filed: 07/27/2023 3:41 PM Note Text: Chief Complaint: Follow-up on breast cancer Virtual visit HISTORY OF PRESENT ILLNESS: Leon Luong is a 42 year old female who presents for follow-up after radiation oncology consult. Patient has also been seen by genetics. She is leaning towards breast conservation therapy and XRT if her genetic testing is negative. She has a medical oncology consult with , scheduled. PAST MEDICAL HISTORY Diagnosis Date FRACTURE 1987 RIGHT ARM, PLAYGROUND ACCIDENT Malignant neoplasm of upper-inner quadrant of right breast in female, estrogen receptor positive (HCC) 07/13/2023 Migraine, unspecified, with intractable migraine, so stated, without mention of status migrainosus Migraine Varicosities BOTH LEGS PAST SURGICAL HISTORY Procedure Laterality Date ARTHROSCOPY KNEE DIAGNOSTIC W/WO SYNOVIAL BX SPX left knee arthroscopy and lateral release. BX OF BREAST; INCISIONAL Right 05/16/2023 DELIVERY ONLY 07/2008, 11/2010 , low cervical PAST SURGICAL HISTORY OF 1998 WISDOM TEETH Social History Tobacco Use Smoking status: Never Smokeless tobacco: Never Vaping Use Vaping Use: Never used Substance Use Topics Alcohol use: Yes Comment: Socially Drug use: No FAMILY HISTORY Problem Relation Age of Onset Lipids Mother Heart Father CA Alcohol/Drug Father Coronary Artery Disease Father other (Kidney Stents and Stretching) Father Lipids Brother Lipids Maternal Grandfather Cancer Paternal Grandmother Coronary Artery Disease Paternal Grandfather Breast Cancer Paternal Aunt Ovarian cancer No Family History ALLERGIES No Known Allergies Current Outpatient Medications Medication Sig venlafaxine ER (EFFEXOR XR) 37.5 mg 24 hr capsule Cetirizine (ZYRTEC) 10 mg cap Take by mouth. cholecalciferol (VITAMIN D-3) 5,000 unit tab Take 5,000 Units by mouth once daily. norgestimate 0.25 mg-ethinyl estradiol 35 mcg (SPRINTEC) 0.25-35 mg-mcg per tablet Take only active pills discard inactive and start new immediately (Patient not taking: Reported on 07/13/2023) No current facility-administered medications for this visit. Data Reviewed: Radiation oncology note ASSESSMENT/PLAN: 1. Malignant neoplasm of upper-inner quadrant of right breast in female, estrogen receptor positive (HCC) (HCC) - ICD9: 174.2, V86.0, ICD10: C50.211, Z17.0 (primary diagnosis) -Appreciate radiation consult -Malignancy is surgically resected. -Proceeding with medical oncology consult is appropriate. Medical oncology consult is scheduled. 2. Family history of malignant neoplasm of breast - ICD9: V16.3, ICD10: Z80.3 -Genetic testing is pending. -If patient test positive for genetic predisposition, she is leaning towards bilateral mastectomy with reconstruction. If genetic testing is negative she is going most likely to proceed with breast conservation therapy and XRT. Our plan is to follow-up after genetic testing in a couple of weeks. Aditi Frank MD ?I verified the medical observer/nurse documentation in the medical record, and made appropriate changes. I personally performed a history, physical exam and medical decision making. Aditi Frank MD Medical Decision Making: Problems: High: Illness/injury w/ threat to life/body function Data: Unique test result(s) reviewed: 1 Risk: Minimal: Minimal risk from testing/treatment Medical Decision Making Level: 2 - Straightforward [facility] 07-27-2023 Note HNO ID: [id number] Author: Lolly Díaz [facility] Service: ? Author Type: Genetic Counselor Type: Progress Notes Filed: 07/27/2023 1:37 PM Note Text: [facility] Consultation Note Genetic Counselor: Lolly Díaz MS, [facility] Patient: Leon Luong Patient Name and confirmed at initiation of visit. This visit was conducted via [employer]. I have communicated my name and active licensure. The patient's identity and physical location were verified at the time of this visit. Either the patient or their legal merchandising representative has been informed of the risks and benefits of -- and alternatives to -- treatment through a remote evaluation and consents to proceed with the evaluation remotely. HIGH LEVEL SUMMARY: The patient's personal and family history is potentially suggestive of a hereditary breast cancer syndrome. The patient provided informed consent for Integrated BRACAnalysis with [employer] through [facility]. Results are expected in 2 weeks. IDENTIFICATION AND CHIEF COMPLAINT: Dr. Aditi Frank requested a consultation for genetic counseling and risk assessment for Leon Luong, a 42 year old female, for discussion of her recent diagnosis of breast cancer. She presents to clinic today to discuss the possibility of a genetic predisposition to cancer, and to further clarify her risks, as well as her family members' risks for cancer. HISTORY OF PRESENT ILLNESS: In May 2023, at the age of 42, Leon Luong was diagnosed with invasive ductal carcinoma of the right breast. She is in the early stages of treatment planning. PAST MEDICAL HISTORY Diagnosis Date FRACTURE 1987 RIGHT ARM, PLAYGROUND ACCIDENT Malignant neoplasm of upper-inner quadrant of right breast in female, estrogen receptor positive (HCC) 07/13/2023 Migraine, unspecified, with intractable migraine, so stated, without mention of status migrainosus Migraine Varicosities BOTH LEGS PAST SURGICAL HISTORY Procedure Laterality Date ARTHROSCOPY KNEE DIAGNOSTIC W/WO SYNOVIAL BX SPX left knee arthroscopy and lateral release. BX OF BREAST; INCISIONAL Right 05/16/2023 DELIVERY ONLY 07/2008, 11/2010 , low cervical PAST SURGICAL HISTORY OF 1997 WISDOM TEETH CANCER SURVEILLANCE HISTORY: Colonoscopy: No EGD: No GI Polyps: N/A Prostate Cancer surveillance: N/A Dermatology: Yes / REPRODUCTIVE HISTORY AND PERSONAL RISK ASSESSMENT FACTORS: Weight: Last 1 Encounter Wt Readings: Date: Wt: 07/25/2023 94.8 kg (209 lb) Height: Last 1 Encounter Ht Readings: Date: Ht: 07/13/2023 167.6 cm (5' 6 ) Uterus Intact: Yes Ovaries Intact: Yes SOCIAL HISTORY: Social History Tobacco Use Smoking status: Never Smokeless tobacco: Never Vaping Use Vaping Use: Never used Substance Use Topics Alcohol use: Yes Comment: Socially Drug use: No FAMILY HISTORY: We obtained a detailed, 4-generation family history. Significant diagnoses are listed below: FAMILY HISTORY Problem Relation Age of Onset Lipids Mother Heart Father CA Alcohol/Drug Father Coronary Artery Disease Father other (Kidney Stents and Stretching) Father Lipids Brother Lipids Maternal Grandfather Cancer Paternal Grandmother Coronary Artery Disease Paternal Grandfather Breast Cancer Paternal Aunt Ovarian cancer No Family History A copy of the patient's pedigree will be available under the scanned documents tab following today's visit. GENETIC COUNSELING RISK ASSESSMENT, DISCUSSION, AND SUGGESTED FOLLOW UP: We reviewed the natural history and genetic etiology of sporadic, familial and hereditary cancer syndromes. The patient's personal and family history is potentially suggestive of: a hereditary breast cancer syndrome The patient meets NCCN HBOC testing criteria based on her personal history of breast cancer diagnosed <= 50 years of age. We discussed that identification of a hereditary cancer syndrome may help her care providers tailor her medical management. If a mutation is detected, the National Comprehensive Cancer Network and/or expert opinion recommendations could include increased cancer surveillance and prophylactic surgery options. If a mutation is detected, the patient will be referred back to the referring provider and to any additional appropriate care providers to discuss the relevant options. Inheritance of hereditary cancer syndromes was discussed with the patient. If a mutation is not found in the patient, this will decrease the likelihood of a hereditary cancer syndrome as the explanation for the patient's recent diagnosis of breast cancer. However, it cannot completely rule out this possibility. Cancer surveillance options would be discussed for the patient according to the appropriate standard National Comprehensive Cancer Network and [employer] (more content not included)... [facility] 07-27-2023 History of Present illness Narrative Chief Complaint: Follow-up on breast cancer Virtual visit HISTORY OF PRESENT ILLNESS: Leon Luong is a 42 year old female who presents for follow-up after radiation oncology consult. Patient has also been seen by genetics. She is leaning towards breast conservation therapy and XRT if her genetic testing is negative. She has a medical oncology consult with , scheduled. PAST MEDICAL HISTORY Diagnosis Date FRACTURE 1987 RIGHT ARM, PLAYGROUND ACCIDENT Malignant neoplasm of upper-inner quadrant of right breast in female, estrogen receptor positive (HCC) 07/13/2023 Migraine, unspecified, with intractable migraine, so stated, without mention of status migrainosus Migraine Varicosities BOTH LEGS PAST SURGICAL HISTORY Procedure Laterality Date ARTHROSCOPY KNEE DIAGNOSTIC W/WO SYNOVIAL BX SPX left knee arthroscopy and lateral release. BX OF BREAST; INCISIONAL Right 05/16/2023 DELIVERY ONLY 07/2008, 11/2010 , low cervical PAST SURGICAL HISTORY OF 1998 WISDOM TEETH Social History Tobacco Use Smoking status: Never Smokeless tobacco: Never Vaping Use Vaping Use: Never used Substance Use Topics Alcohol use: Yes Comment: Socially Drug use: No FAMILY HISTORY Problem Relation Age of Onset Lipids Mother Heart Father CA Alcohol/Drug Father Coronary Artery Disease Father other (Kidney Stents and Stretching) Father Lipids Brother Lipids Maternal Grandfather Cancer Paternal Grandmother Coronary Artery Disease Paternal Grandfather Breast Cancer Paternal Aunt Ovarian cancer No Family History ALLERGIES No Known Allergies Current Outpatient Medications Medication Sig venlafaxine ER (EFFEXOR XR) 37.5 mg 24 hr capsule Cetirizine (ZYRTEC) 10 mg cap Take by mouth. cholecalciferol (VITAMIN D-3) 5,000 unit tab Take 5,000 Units by mouth once daily. norgestimate 0.25 mg-ethinyl estradiol 35 mcg (SPRINTEC) 0.25-35 mg-mcg per tablet Take only active pills discard inactive and start new immediately (Patient not taking: Reported on 07/13/2023) No current facility-administered medications for this visit. Data Reviewed: Radiation oncology note ASSESSMENT/PLAN: 1. Malignant neoplasm of upper-inner quadrant of right breast in female, estrogen receptor positive (HCC) (HCC) - ICD9: 174.2, V86.0, ICD10: C50.211, Z17.0 (primary diagnosis) -Appreciate radiation consult -Malignancy is surgically resected. -Proceeding with medical oncology consult is appropriate. Medical oncology consult is scheduled. 2. Family history of malignant neoplasm of breast - ICD9: V16.3, ICD10: Z80.3 -Genetic testing is pending. -If patient test positive for genetic predisposition, she is leaning towards bilateral mastectomy with reconstruction. If genetic testing is negative she is going most likely to proceed with breast conservation therapy and XRT. Our plan is to follow-up after genetic testing in a couple of weeks. Aditi Frank MD I verified the medical observer/nurse documentation in the medical record, and made appropriate changes. I personally performed a history, physical exam and medical decision making. Aditi Frank MD Medical Decision Making: Problems: High: Illness/injury w/ threat to life/body function Data: Unique test result(s) reviewed: 1 Risk: Minimal: Minimal risk from testing/treatment Medical Decision Making Level: 2 - Straightforward documented in this encounter [facility] 07-27-2023 History of Present illness Narrative Images from the original note were not included. [facility] Personalized Genetic Healthcare Consultation Note Genetic Counselor: Lolly Díaz, , [facility] Patient: Leon Luong Patient Name and confirmed at initiation of visit. This visit was conducted via [employer]. I have communicated my name and active licensure. The patient's identity and physical location were verified at the time of this visit. Either the patient or their legal merchandising representative has been informed of the risks and benefits of -- and alternatives to -- treatment through a remote evaluation and consents to proceed with the evaluation remotely. HIGH LEVEL SUMMARY: The patient's personal and family history is potentially suggestive of a hereditary breast cancer syndrome. The patient provided informed consent for Integrated BRACAnalysis with [employer] through [facility]. Results are expected in 2 weeks. IDENTIFICATION AND CHIEF COMPLAINT: Dr. Aditi Frank requested a consultation for genetic counseling and risk assessment for Leon Luong, a 42 year old female, for discussion of her recent diagnosis of breast cancer. She presents to clinic today to discuss the possibility of a genetic predisposition to cancer, and to further clarify her risks, as well as her family members' risks for cancer. HISTORY OF PRESENT ILLNESS: In May 2023, at the age of 42, Leon Luong was diagnosed with invasive ductal carcinoma of the right breast. She is in the early stages of treatment planning. PAST MEDICAL HISTORY Diagnosis Date FRACTURE 1987 RIGHT ARM, PLAYGROUND ACCIDENT Malignant neoplasm of upper-inner quadrant of right breast in female, estrogen receptor positive (HCC) 07/13/2023 Migraine, unspecified, with intractable migraine, so stated, without mention of status migrainosus Migraine Varicosities BOTH LEGS PAST SURGICAL HISTORY Procedure Laterality Date ARTHROSCOPY KNEE DIAGNOSTIC W/WO SYNOVIAL BX SPX left knee arthroscopy and lateral release. BX OF BREAST; INCISIONAL Right 05/16/2023 DELIVERY ONLY 07/2008, 11/2010 , low cervical PAST SURGICAL HISTORY OF 1998 WISDOM TEETH CANCER SURVEILLANCE HISTORY: Colonoscopy: No EGD: No GI Polyps: N/A Prostate Cancer surveillance: N/A Dermatology: Yes / REPRODUCTIVE HISTORY AND PERSONAL RISK ASSESSMENT FACTORS: Weight: Last 1 Encounter Wt Readings: Date: Wt: 07/25/2023 94.8 kg (209 lb) Height: Last 1 Encounter Ht Readings: Date: Ht: 07/13/2023 167.6 cm (5' 6 ) Uterus Intact: Yes Ovaries Intact: Yes SOCIAL HISTORY: Social History Tobacco Use Smoking status: Never Smokeless tobacco: Never Vaping Use Vaping Use: Never used Substance Use Topics Alcohol use: Yes Comment: Socially Drug use: No FAMILY HISTORY: We obtained a detailed, 4-generation family history. Significant diagnoses are listed below: FAMILY HISTORY Problem Relation Age of Onset Lipids Mother Heart Father CA Alcohol/Drug Father Coronary Artery Disease Father other (Kidney Stents and Stretching) Father Lipids Brother Lipids Maternal Grandfather Cancer Paternal Grandmother Coronary Artery Disease Paternal Grandfather Breast Cancer Paternal Aunt Ovarian cancer No Family History A copy of the patient's pedigree will be available under the scanned documents tab following today's visit. GENETIC COUNSELING RISK ASSESSMENT, DISCUSSION, AND SUGGESTED FOLLOW UP: We reviewed the natural history and genetic etiology of sporadic, familial and hereditary cancer syndromes. The patient's personal and family history is potentially suggestive of: a hereditary breast cancer syndrome The patient meets NCCN HBOC testing criteria based on her personal history of breast cancer diagnosed <= 50 years of age. We discussed that identification of a hereditary cancer syndrome may help her care providers tailor her medical management. If a mutation is detected, the National Comprehensive Cancer Network and/or expert opinion recommendations could include increased cancer surveillance and prophylactic surgery options. If a mutation is detected, the patient will be referred back to the referring provider and to any additional appropriate care providers to discuss the relevant options. Inheritance of hereditary cancer syndromes was discussed with the patient. If a mutation is not found in the patient, this will decrease the likelihood of a hereditary cancer syndrome as the explanation for the patient's recent diagnosis of breast cancer. However, it cannot completely rule out this possibility. Cancer surveillance options would be discussed for the patient according to the appropriate standard National Comprehensive Cancer Network and [place] [employer] guidelines, with consideration of their personal and family history risk factors. In this case, the patient will be referred back to their care providers for discussions of management. Based on this assessment of the patient's family and personal history, genetic testing is recommended. After considering the risks, benefits, and limitations, the patient chose to pursue and provided informed consent for the following testing: Integrated BRACAnalysis with [employer] through [facility]. The [employer] panel includes APC, CRISTOBAL, AXIN2, BAP1, BARD1, BMPR1A, BRCA1, BRCA2, BRIP1, CDH1, CDK4, CDKN2A, CHEK2, CTNNA1, EGFR, EPCAM, FH, FLCN, GREM1, HOXB13, MEN1, MET, MITF, MLH1, MSH2, MSH3, MSH6, MUTYH, NTHL1, PALB2, PMS2, POLD1, POLE, PTEN, RAD51C, RAD51D, RET, SDHA, SDHB, SDHC, SDHD, SMAD4, STK11, TERT, TP53, TSC1, TSC2, and VHL Willie looks at genes related to inherited breast, ovarian, pancreatic, prostate, colon, uterine, kidney, lung, endocrine, and stomach cancer, as well as inherited colon polyp and melanoma syndromes. We discussed that an NGS panel can rarely result in an unexpected finding which may or may not be related to the presenting phenotype. We discussed that [employer] may contact the patient by text or phone call regarding billing. The patient should watch for this communication and respond promptly. The patient should contact [employer] directly with any billing questions (ph. [phone]). Per the patient's request, we will contact her by telephone to discuss these results. A follow up genetic counseling visit will be scheduled if requested. The patient was seen for a total of 30 minutes, greater than 50% of which was spent [id number] counseling. This plan is being carried out under the oversight of Dr. Vidya Curtis. This note will also be sent to the referring provider via the electronic medical record. Lolly Díaz MS, [facility], Licensed, Certified Genetic Counselor [facility] CC: Dr. Aditi Curtis documented in this encounter [facility] 07-26-2023 Miscellaneous Notes Summary: Nurse Navigation Call placed to patient for navigation. Patient did not answer, voicemail left identifying self and return number. Keerthi Calzada RN, BSN documented in this encounter [facility] 07-25-2023 Note HNO ID: [id number] Author: Radha Gallo MD, MD Service: ? Author Type: Physician Type: Progress Notes Filed: 07/25/2023 3:29 PM Note Text: Radiation Oncology - New Patient/Consult Note PATIENT NAME: Leon Luong PATIENT REQUESTING PROVIDER: Dr. Aditi Frank DIAGNOSIS: Stage IA, pT1b pN0 (sn), grade 2 invasive ductal carcinoma of the right breast s/p right breast lumpectomy and sentinel node biopsy on 06/06/23 and re-excision on 06/20/23. Cancer Staging Malignant neoplasm of upper-inner quadrant of right breast in female, estrogen receptor positive (HCC) Staging form: Breast, AJCC 8th Edition - Clinical stage from 07/13/2023: Stage IA (cT1b, cN0(sn), cM0, G2, ER+, RI+, HER2-) - Signed by Aditi Frank MD on 07/13/2023 HPI: 42 year old female who presents with above diagnosis, for an opinion regarding the role of radiation therapy in the management of the patient's disease. Final recommendations will be communicated back to the requesting physician by way of the shared medical record, or letter to requesting physician via US mail. US guided core biopsy of the right breast 1:00 lesion 4 cm from the nipple on 06/06/23 showed grade 2-3 invasive ductal carcinoma. It's ER positive (>90%, moderate to strong), RI positive (85%, strong) and Her2 0. Biopsy of the right breast 2:00 lesion, 2 cm from the nipple also showed grade 2-3 invasive ductal carcinoma. It's ER positive (>95%, moderate to strong), RI positive (>95%, moderate to strong) and Her2 0. She underwent right breast lumpectomy and sentinel node biopsy on 06/06/23. Pathology showed two foci of grade 2 invasive ductal carcinoma measuring 1.0 x 0.7 cm and 0.5 x 0.5 cm. There was DCIS present comprising 10% of the tumor volume. Surgical margins were positive with invasive cancer. There was no LVI. Two sentinel nodes were negative for metastasis. She underwent re-excision on 06/20/23. There was DCIS measuring 2.5 mm with negative margins. Anterior and posterior margins were close, < 1mm. ALLERGIES No Known Allergies Current Outpatient Medications on File Prior to Visit Medication Sig venlafaxine ER (EFFEXOR XR) 37.5 mg 24 hr capsule Cetirizine (ZYRTEC) 10 mg cap Take by mouth. cholecalciferol (VITAMIN D-3) 5,000 unit tab Take 5,000 Units by mouth once daily. norgestimate 0.25 mg-ethinyl estradiol 35 mcg (SPRINTEC) 0.25-35 mg-mcg per tablet Take only active pills discard inactive and start new immediately (Patient not taking: Reported on 07/13/2023) EPINEPHrine (EPIPEN) 0.3 mg/0.3 mL (1:1,000) auto-injector Inject subcutaneously if shortness of breath or restricted air flow, then proceed directly to emergency room. (Patient not taking: Reported on 07/13/2023) VITS W-CA,FE,FA,<1MG, ( [id number] ORAL) Take by mouth. (Patient not taking: Reported on 07/13/2023) No current facility-administered medications on file prior to visit. PAST MEDICAL HISTORY Diagnosis Date FRACTURE 1988 RIGHT ARM, PLAYGROUND ACCIDENT Malignant neoplasm of upper-inner quadrant of right breast in female, estrogen receptor positive (HCC) 07/13/2023 Migraine, unspecified, with intractable migraine, so stated, without mention of status migrainosus Migraine Varicosities BOTH LEGS Prior radiation therapy, collagen vascular disease, or inflammatory bowel disease: No Any implanted or external electric devices? No status: Patient states there is no possibility she is at this time. Educated on risks of during treatment. PAST SURGICAL HISTORY Procedure Laterality Date ARTHROSCOPY KNEE DIAGNOSTIC W/WO SYNOVIAL BX SPX left knee arthroscopy and lateral release. BX OF BREAST; INCISIONAL Right 05/16/2023 DELIVERY ONLY 07/2008, 11/2010 , low cervical PAST SURGICAL HISTORY OF 1998 WISDOM TEETH FAMILY HISTORY Problem Relation Age of Onset Lipids Mother Heart Father CA Alcohol/Drug Father Coronary Artery Disease Father other (Kidney Stents and Stretching) Father Lipids Brother Lipids Maternal Grandfather Cancer Paternal Grandmother Coronary Artery Disease Paternal Grandfather Breast Cancer Paternal Aunt Ovarian cancer No Family History Social History Tobacco Use Smoking status: Never Smokeless tobacco: Never Vaping Use Vaping Use: Never used Substance Use Topics Alcohol use: Yes Comment: Socially Drug use: No COMPLETE REVIEW OF SYSTEMS: GENERAL: feeling well without fatigue, no recent change in weight HEENT: denies ALANIS, change in hearing or vision, no other ENT complaints NECK: denies swelling or pain in neck RESPIRATORY: no cough, no wheezing or shortness of breath CARDIOVASCULAR: no chest pain, no palpitations GI: normal appetite, tolerating PO well, BMs normal, and no abdominal pain : urination is normal MUSCULOSKELETAL: arthritis of knees. SKIN: no rash HEMATOLOGY/LYMPHOLOGY: negative for prolon (more content not included)... [facility] 07-19-2023 Note HNO ID: [id number] Author: Shelley Bennett RN Service: ? Author Type: Registered Nurse Type: Progress Notes Filed: 07/19/2023 8:59 AM Note Text: Leon Luong was reviewed for potential clinical trial enrollment on [facility] #[id number] by the [facility]: [facility] on 07/19/23. Per initial review, patient has disease type breast and appears to be not eligible based on age . Requesting libertarian notified. Shelley Bennett RN [facility] 07-19-2023 History of Present illness Narrative Leon Luong was reviewed for potential clinical trial enrollment on [facility] #[id number] by the Region: [facility] on 07/19/23. Per initial review, patient has disease type breast and appears to be not eligible based on age . Requesting libertarian notified. Shelley Bennett RN documented in this encounter [facility] 07-18-2023 Miscellaneous Notes LVM to reschedule her appointment with Dr. Neves. Dede documented in this encounter [facility] 07-16-2023 Miscellaneous Notes Patient called back and has been scheduled for 07/25/23 @ 9:30 am, she requested this date/time and confirmed this location. Krystina Meyers 's office called and stated that Dr.Andrew Frank is referring Leon to have a consult with for radiation oncology. Leon's diagnosis is breast cancer. I called patient to schedule a new consult with but I had to leave her a message to call our office back. When patient calls back please schedule a consult with Dr.Lee Krystina Meyers documented in this encounter [facility] 07-13-2023 Note HNO ID: [id number] Author: Aditi Frank MD Service: ? Author Type: Physician Type: Progress Notes Filed: 07/13/2023 5:36 PM Note Text: Chief Complaint: Patient presents with: New Patient Results: BX 05/16/2023 Nursing Notes: Ester Nam LPN 07/13/2023 2:48 PM Signed Leon Luong is a 42 year old female who presents for New Patient and Results (BX 06/20/2023 ) Pt denies breast pain, redness, dimples, nipple drainage. Ester Nam LPN HISTORY OF PRESENT ILLNESS: Leon Luong is a 42 year old female who presents for evaluation of her right breast cancer. The patient is diagnosed with invasive ductal carcinoma the upper inner quadrant of her right breast. She had 2 separate foci adjacent to each other, 1 measured 1 cm and the other 5 mm and have been completely removed with partial mastectomy and reexcision. She has DCIS close to a couple of margins which measure 1 mm or less but no extensive intraductal component associated with this tumor process. The invasive margins are clear. She presents now for discussion of options. She is leaning towards bilateral nipple sparing mastectomy. She has consultation with plastics and genetics pending. PAST MEDICAL HISTORY Diagnosis Date FRACTURE 1987 RIGHT ARM, PLAYGROUND ACCIDENT Migraine, unspecified, with intractable migraine, so stated, without mention of status migrainosus Migraine Varicosities BOTH LEGS PAST SURGICAL HISTORY Procedure Laterality Date ARTHROSCOPY KNEE DIAGNOSTIC W/WO SYNOVIAL BX SPX left knee arthroscopy and lateral release. BX OF BREAST; INCISIONAL Right 05/16/2023 DELIVERY ONLY 07/2008, 11/2010 , low cervical PAST SURGICAL HISTORY OF 1998 WISDOM TEETH Social History Tobacco Use Smoking status: Never Smokeless tobacco: Never Vaping Use Vaping Use: Never used Substance Use Topics Alcohol use: Yes Comment: Socially Drug use: No FAMILY HISTORY Problem Relation Age of Onset Lipids Mother Heart Father CA Alcohol/Drug Father Coronary Artery Disease Father other (Kidney Stents and Stretching) Father Lipids Brother Lipids Maternal Grandfather Cancer Paternal Grandmother Coronary Artery Disease Paternal Grandfather Breast Cancer Paternal Aunt Ovarian cancer No Family History ALLERGIES No Known Allergies Current Outpatient Medications Medication Sig venlafaxine ER (EFFEXOR XR) 37.5 mg 24 hr capsule Cetirizine (ZYRTEC) 10 mg cap Take by mouth. cholecalciferol (VITAMIN D-3) 5,000 unit tab Take 5,000 Units by mouth once daily. norgestimate 0.25 mg-ethinyl estradiol 35 mcg (SPRINTEC) 0.25-35 mg-mcg per tablet Take only active pills discard inactive and start new immediately (Patient not taking: Reported on 07/13/2023) EPINEPHrine (EPIPEN) 0.3 mg/0.3 mL (1:1,000) auto-injector Inject subcutaneously if shortness of breath or restricted air flow, then proceed directly to emergency room. (Patient not taking: Reported on 07/13/2023) VITS W-CA,FE,FA,<1MG, ( [id number] ORAL) Take by mouth. (Patient not taking: Reported on 07/13/2023) No current facility-administered medications for this visit. PHYSICAL EXAM: BP 111/76 Pulse 63 Ht 5' 6 (1.68m) Wt 206 lb (93.4kg) LMP 10/09/2016 BMI 33.27 kg/(m2). General Appearance: Well appearing, alert, in no acute distress, well-hydrated, well nourished.. Skin: Negative for jaundice or pallor. Lungs: Normal respirations Breast Exam: Right 5 cm well-healed incision upper inner quadrant 4 cm from the nipple with mild expected postop findings but no infection or fluid collection. The incision is well-approximated. I do not appreciate any associated masses or axillary or supraclavicular adenopathy. Left Diffuse fibrocystic changes are noted without palpable mass, skin changes, nipple discharge or axillary adenopathy. Data Reviewed: X-ray findings including mammograms, ultrasound and MRIs from outside hospital Operative reports Pathology reports ASSESSMENT/PLAN: 1. Malignant neoplasm of upper-inner quadrant of right breast in female, estrogen receptor positive (HCC) - ICD9: 174.2, V86.0, ICD10: C50.211, Z17.0 -Options at this point are reviewed in detail for this patient with T1b N0 M0, ER positive, RI positive, HER2 negative, Stage 1A right breast cancer. -At this point technically her margins are clear and she could consider whole breast radiation followed by systemic therapy with hormonal blockade plus or minus chemotherapy depending on if Oncotype or MammaPrint are performed. Will defer to radiation and medical oncologist. -We did discuss the other more aggressive option of bilateral nipple sparing mastectomy with reconstruction. She is aware that even if she chooses this option she still may require postmastectomy radiation although this is uncommon. We discussed that procedure in detail as well. -Genetics consult is pending -Pat (more content not included)... [facility] 07-13-2023 Note HNO ID: [id number] Author: Keerthi Calzada RN Service: ? Author Type: Registered Nurse Type: Progress Notes Filed: 07/13/2023 4:05 PM Note Text: Summary: Nurse Navigation Introduced self to patient as nurse navigator. Explained role. Packet of information given to patient including introduction letter, information sheets on oncology resources, navigation information, art therapy, financial assistance, healthcare social worker, [facility]. Encouraged patient to call with any questions or concerns. Keerthi Calzada RN, BSN [facility] 08-19-2022 History of Present illness Narrative HISTORY OF PRESENT ILLNESS Leon Luong comes today. She comes today for 2 week followup, left knee arthroscopy. 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 Unfortunately devastating cartilaginous abnormalities. Ultimately, I have informed her in the future it would be a total knee replacement. PHYSICAL EXAMINATION At this time, she is awake, alert x3, ambulates without assistive device. Full range of motion of the ankle and hip. Left knee full extension 120 degrees of flexion. No ligamentous instability. Knee shows no signs of infections. Portals are clean dry intact. Stitches are removed. IMPRESSION 1.2 weeks status post left knee arthroscopy. 2.Left knee degenerative arthrosis. PLAN At this point in time, she will do activities as tolerated. I will see her on a p.r.n. basis. We talked about pills, shots, therapy as well as potential future knee replacement. I will see her on an as-needed basis. documented in this encounter [facility] 07-28-2022 History of Present illness Narrative Recent office vist, no covid screening needed documented in this encounter [facility] 06-28-2022 History of Present illness Narrative Patient identified by name and date of . Held progression of exercises this date due to patients increased Sx. She demonstrated increased difficulty with ROM with strap with increased pain. She demonstrated good tolerance to game ready with reduction of Sx and edema noted after.Supervising PT added ICD10 code R60.0 for Leg edema, Left on 06/28/22 due to persisting edema in LLE impacting patient tolerance to skilled services. Pt is appropriate for additional use of vasopneumatic device with cold for better symptom management. [facility] Work Phone: 06-12-2022 History of Present illness Narrative [facility] [address] [facility] [address] [facility] [id number] Chief Complaint Patient presents with Results MRI review Leon LUONG returns to the office today for follow up on her left knee and for her MRI results. She was playing volleyball a couple of weeks ago and injured the knee. I started her on a prescription anti-inflammatory medication and ordered a MRI. She is here today with about 25% improvement since I last saw her. She continues to have instability of the knee and pain. She continues to have to go up and down steps one at a time and at an angle. She denies any new injury to the knee. The patient's past medical history, surgical history, social history, family history, medications and allergies were reviewed with the patient today and are available in the chart for further review. No Known Allergies Current Outpatient Medications: indomethacin (INDOCIN SR) 75 mg CR capsule, Take 1 (one) capsule (75 mg total) by mouth 2 (two) times a day with meals ., Disp: 60 capsule, Rfl: 2 No past medical history on file. Past Surgical History: Procedure Laterality Date SECTION, CLASSIC KNEE SURGERY Left SHOULDER ARTHROSCOPY Left Social History Socioeconomic History Marital status: Tobacco Use Smoking status: Never Smokeless tobacco: Never Substance and Sexual Activity Alcohol use: Yes Alcohol/week: 0.0 standard drinks Drug use: No ROS: Review of Systems Musculoskeletal: Positive for arthralgias, gait problem, joint swelling and myalgias. Imaging: MRI L Knee: Tricompartmental articular cartilage loss severe in the patellofemoral compartment. Moderate joint effusion with synovitis and debris. Suggestion of chondral body posterior to the medial femoral condyle measuring up to 10 mm. Low-grade sprain of the MCL. The high-grade patellofemoral articular cartilage loss with a large area of full-thickness involving the median ridge and lateral facet. Assessment/Plan: After reviewing of the patient MRI images we discussed continued treatment options for the left knee. At this point in time I did explain to the patient that I am having Dr. Jaramillo review her MRI images and will contact her with his recommendation in regards to surgery. We did discuss a knee arthroscopy versus a total knee replacement. The patient being as young as she is really wants to be able to move forward with an arthroscopy to see if this will buy her some time. She is to continue with her anti-inflammatory medications as needed. I will contact her with Dr. Jaramillo's recommendations. She does verbalize understanding and is in agreement the treatment plan. documented in this encounter [facility] documented as of this encounter (statuses as of 07/16/2023) [facility] History of Past illness Narrative* Problem Noted Date Diagnosed Date Resolved Date Intermenstrual bleeding 09/02/201510/11 PCB (post coital bleeding) 09/02/2015 0 10/23/2016 Erosion and ectropion of cervix uteri 09/02/2015 10/23/2016 Patient requested diagnostic testing 05/20/2012 08/14/2012 Overview: 05/16/2012negative Sequential screen first trimester. The first part of the Sequential Screen reports that her risk for Down syndrome decreased from her age-related risk of 1:430 to 1:4,900 and her Trisomy 18 risk decreased from her age-related risk of 1:1,500 to 1:10,000. Based on these results Dr. Cha's recommendation is for patient to follow-up with Sequential second trimester screening (06/09-06/23) and level II anatomy scan after 18wks. Supervision of other normal 05/16/2012 12/06/2012 Overview: May 16, 2012 flu vaccine done at work with uncertain dates 04/02/2012 05/16/2012 Overview: Patient states she has a history of irregular menses every 26-37 days. Discussed history of irregular menses with Dr. Pal. Dr. Pal ordered an ultrasound for dating. History of 04/02/2012 013 Overview: 04/02/2012Pt had a previous C section. She desires a repeat C section by Dr. Tyesha Gutierrez. History of macrosomia in inf ant in prior , currently 04/02/2012 12/06/2012 Overview: 04/02/2012Her previous child's weight was 9 pounds 2.99 ounces. Family history of genetic disease 04/02/2012 12/06/2012 Overview: 04/02/2012Pt has two first cousins with hemophilia. Family history of congenital heart defect 04/02/2012 12/06/2012 Overview: 04/02/2012The FOB's grandfather was born with a heart valve abnormality. He had valve replacement surgery. History of varicose veins 04/02/2012 Overview: 04/02/2012Patient has a history of varicose veins in both of her legs. Discussed the importance of avoiding prolonged standing or sitting and avoiding crossing her legs. Patient desires early screening in with sequential testing. Immunization due 04/02/2012 12/06/2012 Overview: 04/02/2012Patient states her tetanus vaccine is not up-to-date. Supervision of normal first 12/19/2007 08/25/2008 documented as of this encounter (statuses as of 07/17/2023) [facility] History of Past illness Narrative* Problem Noted Date Diagnosed Date Resolved Date Intermenstrual bleeding 09/02/201510/11 PCB (post coital bleeding) 09/02/2015 0 10/23/2016 Erosion and ectropion of cervix uteri 09/02/2015 10/23/2016 Patient requested diagnostic testing 05/20/2012 08/14/2012 Overview: 05/16/2012negative Sequential screen first trimester. The first part of the Sequential Screen reports that her risk for Down syndrome decreased from her age-related risk of 1:430 to 1:4,900 and her Trisomy 18 risk decreased from her age-related risk of 1:1,500 to 1:10,000. Based on these results Dr. Cha's recommendation is for patient to follow-up with Sequential second trimester screening (06/09-06/23) and level II anatomy scan after 18wks. Supervision of other normal 05/16/2012 12/06/2012 Overview: May 16, 2012 flu vaccine done at work with uncertain dates 04/02/2012 05/16/2012 Overview: Patient states she has a history of irregular menses every 26-37 days. Discussed history of irregular menses with Dr. Pal. Dr. Pal ordered an ultrasound for dating. History of 04/02/2012 013 Overview: 04/02/2012Pt had a previous C section. She desires a repeat C section by Dr. Tyesha Gutierrez. History of macrosomia in inf ant in prior , currently 04/02/2012 12/06/2012 Overview: 04/02/2012Her previous child's weight was 9 pounds 2.99 ounces. Family history of genetic disease 04/02/2012 12/06/2012 Overview: 04/02/2012Pt has two first cousins with hemophilia. Family history of congenital heart defect 04/02/2012 12/06/2012 Overview: 04/02/2012The FOB's grandfather was born with a heart valve abnormality. He had valve replacement surgery. History of varicose veins 04/02/2012 Overview: 04/02/2012Patient has a history of varicose veins in both of her legs. Discussed the importance of avoiding prolonged standing or sitting and avoiding crossing her legs. Patient desires early screening in with sequential testing. Immunization due 04/02/2012 12/06/2012 Overview: 04/02/2012Patient states her tetanus vaccine is not up-to-date. Supervision of normal first 12/19/2007 08/25/2008 documented as of this encounter (statuses as of 07/18/2023) [facility] History of Past illness Narrative* Problem Noted Date Diagnosed Date Resolved Date Intermenstrual bleeding 09/02/2015/10/2016 PCB (post coital bleeding) 09/02/2015 0 10/23/2016 Erosion and ectropion of cervix uteri 09/02/2015 10/23/2016 Patient requested diagnostic testing 05/20/2012 08/14/2012 Overview: 05/16/2012negative Sequential screen first trimester. The first part of the Sequential Screen reports that her risk for Down syndrome decreased from her age-related risk of 1:430 to 1:4,900 and her Trisomy 18 risk decreased from her age-related risk of 1:1,500 to 1:10,000. Based on these results Dr. Cha's recommendation is for patient to follow-up with Sequential second trimester screening (06/09-06/23) and level II anatomy scan after 18wks. Supervision of other normal 05/16/2012 12/06/2012 Overview: May 16, 2012 flu vaccine done at work with uncertain dates 04/02/2012 05/16/2012 Overview: Patient states she has a history of irregular menses every 26-37 days. Discussed history of irregular menses with Dr. Pal. Dr. Pal ordered an ultrasound for dating. History of 04/02/2012 013 Overview: 04/02/2012Pt had a previous C section. She desires a repeat C section by Dr. Tyesha Gutierrez. History of macrosomia in inf ant in prior , currently 04/02/2012 12/06/2012 Overview: 04/02/2012Her previous child's weight was 9 pounds 2.99 ounces. Family history of genetic disease 04/02/2012 12/06/2012 Overview: 04/02/2012Pt has two first cousins with hemophilia. Family history of congenital heart defect 04/02/2012 12/06/2012 Overview: 04/02/2012The FOB's grandfather was born with a heart valve abnormality. He had valve replacement surgery. History of varicose veins 04/02/2012 Overview: 04/02/2012Patient has a history of varicose veins in both of her legs. Discussed the importance of avoiding prolonged standing or sitting and avoiding crossing her legs. Patient desires early screening in with sequential testing. Immunization due 04/02/2012 12/06/2012 Overview: 04/02/2012Patient states her tetanus vaccine is not up-to-date. Supervision of normal first 12/19/2007 08/25/2008 documented as of this encounter (statuses as of 07/19/2023) [facility] History of Past illness Narrative* Problem Noted Date Diagnosed Date Resolved Date Intermenstrual bleeding 09/02/201510/11 PCB (post coital bleeding) 09/02/2015 0 10/23/2016 Erosion and ectropion of cervix uteri 09/02/2015 10/23/2016 Patient requested diagnostic testing 05/20/2012 08/14/2012 Overview: 05/16/2012negative Sequential screen first trimester. The first part of the Sequential Screen reports that her risk for Down syndrome decreased from her age-related risk of 1:430 to 1:4,900 and her Trisomy 18 risk decreased from her age-related risk of 1:1,500 to 1:10,000. Based on these results Dr. Cha's recommendation is for patient to follow-up with Sequential second trimester screening (06/09-06/23) and level II anatomy scan after 18wks. Supervision of other normal 05/16/2012 12/06/2012 Overview: May 16, 2012 flu vaccine done at work with uncertain dates 04/02/2012 05/16/2012 Overview: Patient states she has a history of irregular menses every 26-37 days. Discussed history of irregular menses with Dr. Pal. Dr. Pal ordered an ultrasound for dating. History of 04/02/2012 013 Overview: 04/02/2012Pt had a previous C section. She desires a repeat C section by Dr. Tyesha Gutierrez. History of macrosomia in inf ant in prior , currently 04/02/2012 12/06/2012 Overview: 04/02/2012Her previous child's weight was 9 pounds 2.99 ounces. Family history of genetic disease 04/02/2012 12/06/2012 Overview: 04/02/2012Pt has two first cousins with hemophilia. Family history of congenital heart defect 04/02/2012 12/06/2012 Overview: 04/02/2012The FOB's grandfather was born with a heart valve abnormality. He had valve replacement surgery. History of varicose veins 04/02/2012 Overview: 04/02/2012Patient has a history of varicose veins in both of her legs. Discussed the importance of avoiding prolonged standing or sitting and avoiding crossing her legs. Patient desires early screening in with sequential testing. Immunization due 04/02/2012 12/06/2012 Overview: 04/02/2012Patient states her tetanus vaccine is not up-to-date. Supervision of normal first 12/19/2007 08/25/2008 documented as of this encounter (statuses as of 07/25/2023) [facility] History of Past illness Narrative* Problem Noted Date Diagnosed Date Resolved Date Intermenstrual bleeding 09/02/201510/11 PCB (post coital bleeding) 09/02/2015 0 10/23/2016 Erosion and ectropion of cervix uteri 09/02/2015 10/23/2016 Patient requested diagnostic testing 05/20/2012 08/14/2012 Overview: 05/16/2012negative Sequential screen first trimester. The first part of the Sequential Screen reports that her risk for Down syndrome decreased from her age-related risk of 1:430 to 1:4,900 and her Trisomy 18 risk decreased from her age-related risk of 1:1,500 to 1:10,000. Based on these results Dr. Cha's recommendation is for patient to follow-up with Sequential second trimester screening (06/09-06/23) and level II anatomy scan after 18wks. Supervision of other normal 05/16/2012 12/06/2012 Overview: May 16, 2012 flu vaccine done at work with uncertain dates 04/02/2012 05/16/2012 Overview: Patient states she has a history of irregular menses every 26-37 days. Discussed history of irregular menses with Dr. Pal. Dr. Pal ordered an ultrasound for dating. History of 04/02/2012 013 Overview: 04/02/2012Pt had a previous C section. She desires a repeat C section by Dr. Tyesha Gutierrez. History of macrosomia in inf ant in prior , currently 04/02/2012 12/06/2012 Overview: 04/02/2012Her previous child's weight was 9 pounds 2.99 ounces. Family history of genetic disease 04/02/2012 12/06/2012 Overview: 04/02/2012Pt has two first cousins with hemophilia. Family history of congenital heart defect 04/02/2012 12/06/2012 Overview: 04/02/2012The FOB's grandfather was born with a heart valve abnormality. He had valve replacement surgery. History of varicose veins 04/02/2012 Overview: 04/02/2012Patient has a history of varicose veins in both of her legs. Discussed the importance of avoiding prolonged standing or sitting and avoiding crossing her legs. Patient desires early screening in with sequential testing. Immunization due 04/02/2012 12/06/2012 Overview: 04/02/2012Patient states her tetanus vaccine is not up-to-date. Supervision of normal first 12/19/2007 08/25/2008 documented as of this encounter (statuses as of 07/26/2023) [facility] History of Past illness Narrative* Problem Noted Date Diagnosed Date Resolved Date Intermenstrual bleeding 09/02/201510/11 PCB (post coital bleeding) 09/02/2015 0 10/23/2016 Erosion and ectropion of cervix uteri 09/02/2015 10/23/2016 Patient requested diagnostic testing 05/20/2012 08/14/2012 Overview: 05/16/2012negative Sequential screen first trimester. The first part of the Sequential Screen reports that her risk for Down syndrome decreased from her age-related risk of 1:430 to 1:4,900 and her Trisomy 18 risk decreased from her age-related risk of 1:1,500 to 1:10,000. Based on these results Dr. Cha's recommendation is for patient to follow-up with Sequential second trimester screening (06/09-06/23) and level II anatomy scan after 18wks. Supervision of other normal 05/16/2012 12/06/2012 Overview: May 16, 2012 flu vaccine done at work with uncertain dates 04/02/2012 05/16/2012 Overview: Patient states she has a history of irregular menses every 26-37 days. Discussed history of irregular menses with Dr. Pal. Dr. Pal ordered an ultrasound for dating. History of 04/02/2012 013 Overview: 04/02/2012Pt had a previous C section. She desires a repeat C section by Dr. Tyesha Gutierrez. History of macrosomia in inf ant in prior , currently 04/02/2012 12/06/2012 Overview: 04/02/2012Her previous child's weight was 9 pounds 2.99 ounces. Family history of genetic disease 04/02/2012 12/06/2012 Overview: 08/21/2012Pt has two first cousins with hemophilia. Family history of congenital heart defect 04/02/2012 12/06/2012 Overview: 04/02/2012The FOB's grandfather was born with a heart valve abnormality. He had valve replacement surgery. History of varicose veins 04/02/2012 Overview: 04/02/2012Patient has a history of varicose veins in both of her legs. Discussed the importance of avoiding prolonged standing or sitting and avoiding crossing her legs. Patient desires early screening in with sequential testing. Immunization due 04/02/2012 12/06/2012 Overview: 04/02/2012Patient states her tetanus vaccine is not up-to-date. Supervision of normal first 12/19/2007 08/25/2008 documented as of this encounter (statuses as of 07/27/2023) [facility] History of Past illness Narrative* Problem Noted Date Diagnosed Date Resolved Date Intermenstrual bleeding 09/02/201510/11 PCB (post coital bleeding) 09/02/2015 0 10/23/2016 Erosion and ectropion of cervix uteri 09/02/2015 10/23/2016 Patient requested diagnostic testing 05/20/2012 08/14/2012 Overview: 05/16/2012negative Sequential screen first trimester. The first part of the Sequential Screen reports that her risk for Down syndrome decreased from her age-related risk of 1:430 to 1:4,900 and her Trisomy 18 risk decreased from her age-related risk of 1:1,500 to 1:10,000. Based on these results Dr. Cha's recommendation is for patient to follow-up with Sequential second trimester screening (06/09-06/23) and level II anatomy scan after 18wks. Supervision of other normal 05/16/2012 12/06/2012 Overview: May 16, 2012 flu vaccine done at work with uncertain dates 04/02/2012 05/16/2012 Overview: Patient states she has a history of irregular menses every 26-37 days. Discussed history of irregular menses with Dr. Pal. Dr. Pal ordered an ultrasound for dating. History of 04/02/2012 013 Overview: 04/02/2012Pt had a previous C section. She desires a repeat C section by Dr. Tyesha Gutierrez. History of macrosomia in inf ant in prior , currently 04/02/2012 12/06/2012 Overview: 04/02/2012Her previous child's weight was 9 pounds 2.99 ounces. Family history of genetic disease 04/02/2012 12/06/2012 Overview: 04/02/2012Pt has two first cousins with hemophilia. Family history of congenital heart defect 04/02/2012 12/06/2012 Overview: 04/02/2012The FOB's grandfather was born with a heart valve abnormality. He had valve replacement surgery. History of varicose veins 04/02/2012 Overview: 04/02/2012Patient has a history of varicose veins in both of her legs. Discussed the importance of avoiding prolonged standing or sitting and avoiding crossing her legs. Patient desires early screening in with sequential testing. Immunization due 04/02/2012 12/06/2012 Overview: 04/02/2012Patient states her tetanus vaccine is not up-to-date. 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, left [facility] Diagnosis Patellofemoral chondrosis of left knee- Primary documented in this encounter [facility]* Diagnosis Malignant neoplasm of upper-inner quadrant of right breast in female, estrogen receptor positive (HCC) (HCC)- Primary Family history of malignant neoplasm of breast [facility] Diagnosis Malignant neoplasm of upper-inner quadrant of right breast in female, estrogen receptor positive (HCC) (HCC)- Primary Family history of malignant neoplasm of breast [facility] Narrative arrives to outpatient PT c/o . Pt presents with the following impairments: . These impairments contribute to difficulty in activity limitations and participation restrictions including . Thept s signs and symptoms are consistent with likely . The pt will benefit from skilled PT sndsjihl7f/week for 8 weeks to address the above stated impairments and functional limitations to maximize participation and ease in household, social, and work related activities. The pt has a prognosis w hen considering positive factors including with barriers such as . The pt verbalized understanding and agreement to goals and POC. Thank you for this referral and please call [phone] with any questions or concerns. [facility] Work Phone: History of Present illness Narrative* Leon Luong, a 41 year old female, arrives to outpatient PT c/o L knee pain. Pt presents with thefollowing impairments: L knee pain, deficits in L knee AROM, restrictions of surrounding L knee musculature, deficits in B hip and L knee musculature strength, lack of stability noted in SLS, and deficits in functional mobility per LEFS. These impairments contribute to difficulty in activity limitations and participation restrictions including ambulation, standing, playing volleyball, and household management. The pt will benefit from skilled PT services 2x/week for 6 weeks to address the abovestated impairments and functional limitations to maximize participation and ease in household, social, and work related activities. The pt has a fair prognosis when considering positive factors including age and PLOF with barriers such as severity of pain and chronicity of symptoms. Noted increasedtenderness of popliteal fossa of L knee. Educated on performing exercises without knee valgus or varus and to avoid torsional motions. Patient verbalizing understanding. No exacerbation of pain with HEP regarding L knee OKC strengthening and mobility. 4/10 pain reported at end of session. The pt daja balized understanding and agreement to goals and POC. Thank you for this referral and please call [phone] with any questions or concerns. * Clinical Presentation: Stable and/or uncomplicated characteristics. * Level of Complexity: low * Problem List: activity limitations, ADLs/IADLs/self care skills, decreased knowledge of HEP, flexibility, gait/locomotion, pain, participation restrictions, range of motion/joint mobility and strength. [facility] Work Phone: History of Present illness NarrativePatient identified by name and date of . Patient presented with visual and palpable edema around L knee. She ambulated into clinic with antalgic gait pattern with lack of heel strike and toe off. She was able to preform SLR in min range with quad lag noted. [facility] [employer] Work Phone: History of Present illness Narrative* Patient identified by name and * Patient challenged with exercises. Patient tolerates progressions with mild difficulty through available range. Demo's tolerance in sidelying hip abduction and adduction. Gameready at end of session to help decrease symptoms and edema. [facility] Work Phone: History of Present illness NarrativeFair tolerance to progressions in ther ex. Noted catching with mid flexion of L knee. Noted edema of L knee this date compared to R LE. Verbal cues for quadriceps engagement with SLR and proper form with SAQ. Pain with L knee flexion with heel slides. 0/10 pain reported following GameReady. [facility] Work Phone: History of Present illness NarrativePatient has good understanding of all therapeutic exercises performed today with no major increasesin pain t/o. 0/10 pain reported following GameReady application.[facility] ServicesOhio[facility] Work Phone: History of Present illness Narrative* Patient confirmed name and date of this session. * Pt with good tolerance to session with no c/o increased pain except with heel slides. Edema observed of L knee. Game ready applied this date to reduce pain and edema with pt reports of 0/10 after. Skin intact pre/post Game ready. [facility] [employer] Work Phone: History of Present illness NarrativePatient identified by name and date of . Patient demonstrated antalgic gait with entering clinic area. She presented with edema around her L knee and tenderness to the touch. She presented with poping/cracking with heel slides this date. [facility] [employer] Work Phone: History of Present illness NarrativePatient identified by name and date of . Patient was able to progress with reps with LAQ with minimal increased Sx. She continues to demonstrated difficulty with ROM with increased Sx noted during and after. She responded well to game ready with reduction of Sx after.[facility] [employer] Work Phone: History of Present illness NarrativePt reassessed this date by supervising PT with improvements noted in Left knee AROM and MMT. Pt hashad difficulty tolerating progression of ther-ex due to persisting pain and instability in Left knee. Responded well to STM this date as well as continued use of vasopneumatic compression with cryotherapy. Spent much of time on pt edu on continued symptom management and prognosis/preparing for surgery with good understanding noted. Most goals not met due to chronicity of sxs.[facility] [employer] Work Phone: History of Present illness NarrativePatient identified by name and date of . Patient presented with palpable tension in HS, IT andcalf this date that responded well to STW with mild pressure. She required cues for new stretches and was able to complete. She responded well to vaso with reduction of Sx and edema after treatment.[facility] [employer] Work Phone: History of Present illness Narrative* Patient has tenderness along lateral joint line of the knee. * Tenderness along ITB and along Pes Anserine region with light palpation. * Antalgic gait upon arrival. * Patient was in too much pain to complete PRE's this date, so focus was on the STW, stretches and vasopneumatic. [facility] Work Phone: reason for visit Narrative* Initial Evaluation . L knee instability. * Referred by: Johnson Perkins CNP [facility] Work Phone: Reason for Referral Specialty Diagnoses / Procedures Referred By Regan arreola Referred To Contact Physical Therapy Diagnoses Knee instability, left Patellofemoral chondrosis of left knee Johnson Perkins, [address] [place] [address] Referral ID Status Reason Start Date Expiration Date Visits Requested Visits Authorized [id number] Authorized Patient Preference 06/13/2022 06/13/2023 1 1 Summary Purpose Family History No Family History Records FoundNo Family History Records FoundNo Family History Records FoundNo Family History Records FoundNo Family History Records FoundNo Family History Records FoundNo Family History Records FoundNo Family History Records Found Advance Directives No Advanced Directives Records FoundNo Advanced Directives Records FoundNo Advanced Directives Records FoundNo Advanced Directives Records FoundNo Advanced Directives Records FoundNo Advanced Directives Records FoundNo Advanced Directives Records FoundNo Advanced Directives Records Found Additional Source Comments Reason for Visit (unrecogniz ed section and content) Reason Comments Pre-op Exam Left knee Reason Comments Follow-up Reason Comments Outside [id number] Ordered Called Romario lopez at [facility] pathology to check status on requested pathology slides that was sent on 07/11/23. Per Lynn, patient will have to go to their lab to sign a medical release form before slides can be released. Left message for patient to contact our office. Julieta Liang LPN Reason Comments Appointment Notified Krystina at Rajan Gallo's office of new referral for consult on breast cancer. Krystina stated that she will contact patient to schedule appt. Julieta Liang LPN Reason Comments New Patient Reason Comments APPOINTMENT Reason Comments Research Prescreening Reason Comments Outside [id number] Ordered Spoke with patient on Sunday regarding need for signed release for pathology slides from [facility]. Patient had stated that Dr. Romo's office could request slides without needing release and that she would contact his office. Spoke with Yanique at 's office, per Yanique they were also told that a signed release was needed from patient. Left message for patient to reach out to Sterling to see about signing a release. Julieta Liang LPN Reason Comments Outside [id number] Ordered Contacted Michele ibanez for status on request for pathology slides. Lynn stated that she sent medical release form to patient to have her sign, and she is still waiting for patient to return form. Left message for patient to please return signed form to Lynn maxwellp. Julieta Liang LPN Reason Comments Patient Navigation Reason Comments Breast Cancer Reason Comments Follow Up Care Teams (unrecognized sec tion and content) Adult Education Instructor Relationship Specialty Start Date End Date Rosy Castillo MD PCP - General Family Medicine 12/21/15 Adult Education Instructor Relationship Specialty Start Date End Date Rosy Castillo MD PCP - General Family Medicine 12/21/15 Adult Education Instructor Relationship Specialty Start Date End Date Roys Castillo MD PCP - General Family Medicine 12/21/15 Adult Education Instructor Relationship Specialty Start Date End Date Rosy Castillo MD [address] [place] [address] PCP - General Family Medicine 07/31/22 Adult Education Instructor Relationship Specialty Start Date End Date Ester Augustine CNP [address] [place] [address] PCP - General Family Medicine 07/16/23 Fantasma Romo MD [address] [address] General Surgery 07/16/23 Adult Education Instructor Relationship Specialty Start Date End Date Ester Augustine CNP [address] [place] [address] PCP - General Family Medicine 07/16/23 Fantasma Romo MD [address] [place] [id number] General Surgery 07/16/23 Adult Education Instructor Relationship Specialty Start Date End Date Ester Augustine CNP [address] [place] [address] PCP - General Family Medicine 07/16/23 Fantasma Romo MD [address] [address] General Surgery 07/16/23 Radha Gallo MD, [address] [place] [address] Radiation Oncology 07/17/23 Adult Education Instructor Relationship Specialty Start Date End Date Ester Augustine CNP [address] [place] [address] PCP - General Family Medicine 07/16/23 Fantasma Romo MD [address] [address] General Surgery 07/16/23 Radha Gallo MD, [address] [place] [address] Radiation Oncology 07/17/23 Adult Education Instructor Relationship Specialty Start Date End Date Ester Augustine CNP [address] [place] [address] PCP - General Family Medicine 07/16/23 Fantasma Romo MD [address] [place] [address] General Surgery 07/16/23 Radha Gallo MD, [address] [place] [address] Radiation Oncology 07/17/23 Adult Education Instructor Relationship Specialty Start Date End Date Ester Augustine [address] [place] [address] PCP - General Family Medicine 07/16/23 Fantasma Romo MD [address] [place] [address] General Surgery 07/16/23 Radha Gallo MD, [address] [place], [place] [address] Radiation Oncology 07/17/23 Adult Education Instructor Relationship Specialty Start Date End Date Ester Augustine [address] [place] [address] PCP - General Family Medicine 07/16/23 Fantasma Romo MD [address] [place] [address] General Surgery 07/16/23 Radha Gallo MD, [address] [place] [address] Radiation Oncology 07/17/23 INFORMATION SOURCE (unrecogn ized section and content) DATE CREATED AUTHOR [facility] DATE CREATED AUTHOR AUTHOR'S ORGANIZ ATION 08/05/2022 [employer] DATE CREATED AUTHOR AUTHOR'S ORGANIZ ATION 08/11/2022 [facility] DATE CREATED AUTHOR AUTHOR'S ORGANIZ ATION 08/18/2022 [facility] DATE CREATED AUTHOR AUTHOR'S ORGANIZ ATION 01/22/2023 [facility] DATE CREATED AUTHOR AUTHOR'S ORGANIZ ATION 08/23/2023 [facility] DATE CREATED AUTHOR AUTHOR'S ORGANIZ ATION 09/05/2023 [facility] Source Comments (unrecognize d section and content) In the event this informatio n is protected by the Federal Confidentiality of Alcohol and Drug Abuse Patient Records regulations: The Federal rules restrict any use of the information to criminally investigate or prosecute any alcohol or drug abuse patient.[facility] the event this information is protected by the Federal Confidentiality of Alcohol and Drug Abuse Patient Records regulations: The Federal rules restrict any use of the information to criminally investigate or prosecute any alcohol or drug abuse patient.[facility] the event this information is protected by the Federal Confidentiality of Alcohol and Drug Abuse Patient Records regulations: The Federal rules restrict any use of the information to criminally investigate or prosecute any alcohol or drug abuse patient.[facility] the event this information is protected by the Federal Confidentiality of Alcohol and Drug Abuse Patient Records regulations: The Federal rules restrict any use of the information to criminally investigate or prosecute any alcohol or drug abuse patient.[facility] the event this information is protected by the Federal Confidentiality of Alcohol and Drug Abuse Patient Records regulations: The Federal rules restrict any use of the information to criminally investigate or prosecute any alcohol or drug abuse patient.[facility] the event this information is protected by the Federal Confidentiality of Alcohol and Drug Abuse Patient Records regulations: The Federal rules restrict any use of the information to criminally investigate or prosecute any alcohol or drug abuse patient.[facility] the event this information is protected by the Federal Confidentiality of Alcohol and Drug Abuse Patient Records regulations: The Federal rules restrict any use of the information to criminally investigate or prosecute any alcohol or drug abuse patient.[facility] the event this information is protected by the Federal Confidentiality of Alcohol and Drug Abuse Patient Records regulations: The Federal rules restrict any use of the information to criminally investigate or prosecute any alcohol or drug abuse [facility] the event this information is protected by the Federal Confidentiality of Alcohol and Drug Abuse Patient Records regulations: The Federal rules restrict any use of the information to criminally investigate or prosecute any alcohol or drug abuse patient.[facility] the event this information is protected by the Federal Confidentiality of Alcohol and Drug Abuse Patient Records regulations: The Federal rules restrict any use of the information to criminally investigate or prosecute any alcohol or drug abuse patient.[facility] FOR RECORDS PERTAINING TO PATIENTS WHO ARE OR HAVE BEEN ENROLLED IN A CHEMICAL DEPENDENCY/SUBSTANCEABUSE PROGRAM, SOME INFORMATION MAY BE OMITTED. This clinical summary was aggregated from multiple sources. Caution should be exercised in using it in the provision of clinical care. This summary normalizes information from multiple sources, and as a consequence, information in this document may materially change the coding, format and clinical context of patient data. In addition, data may be omitted in some cases. CLINICAL DECISIONS SHOULD BE BASED ON THE PRIMARY CLINICAL RECORDS. [facility] [facility]. provides no warranty or guarantee of the accuracy or completeness of information in this document.
[2023-09-10 12:08] LABS: HPV APTIMA, High Risk Negative (Negative)
== END | disposition home or self-care (01) ==
LOC: LABSPEC 13:50
PROVIDERS: PCP Nurse Practitioner Family; Referring Provider Nurse Practitioner Women's Health; Visit Provider Nurse Practitioner Women's Health
DX: Z12.4 Encounter for screening for malignant neoplasm of cervix (principal)
CPT/HCPCS: 87624; 88175; G0145

== ENCOUNTER → 2023-09-10 | Outpatient (CLI) | payer OTHER, SELFPAY ==
--- NOTE | 2023-09-10 12:15 | US_ITS ---
INDICATION: pelvic pain, hx of breast cancer EXAMINATION: Ultrasound US Pelvis Non OB Complete With Transvaginal Imaging TECHNIQUE: Transabdominal and transvaginal pelvic ultrasound was performed. Grayscale, spectral waveform, and color flow Doppler evaluation of the adnexa. COMPARISON: FINDINGS: UTERUS: Anteverted. The uterus measures 10.5 x 6.6 x 5.8 cm. Myometrial heterogeneity at least 2 fibroids up to 2.1 cm. The endometrial stripe measures 6.3 mm in AP diameter which is within normal limits. Nabothian cysts. RIGHT OVARY: 2.6 x 3.3 x 2.3 cm. Non-enlarged, normal echogenicity. There is normal arterial inflow and venous outflow present in the right ovary. LEFT OVARY: 5.0 x 3.8 x 2.9 cm. Multiple simple cysts. There is a complex 3.4 x 2.6 x 1.8 cm lesion. There is normal arterial inflow and venous outflow present in the left ovary. FREE FLUID: None. Distended urinary bladder with a volume of 1246 cc. US/Pelvic (Non ) IMPRESSION: Uterine fibroids. Nabothian cysts. Left ovarian simple cyst and a complex lesion. Electronically Signed: Chuck Vasquez DO at 22:11 EST Reading Location ID and State: [facility] / [place] Tel [phone], Service support ,
--- OUTSIDE RECORDS SUMMARY | 2023-09-10 12:29 | XMS RPT_ITS | CCD ---
Author Name Unknown Address [address] [place] [address] Organization [facility] Care Team Providers Care Washerette Machine Operator Name Role Phone Annette Yao MD Unavailable [phone] Rosy Castillo MD Primary Care Provider [phone] Pending Provider Unavailable Unavailable JOHNSON PERKINS Referring Unavailable JOHNSON PERKINS Attending Unavailable ROSY CASTILLO Primary Care Unavailable Rosy Castillo MD Primary Care Provider [phone] Maddie, Ms. Johnson Fontana Attending Unavail able [...] Care Unavailable Pending, Provider Primary Care Unavailable aMddie, Ms. Johnson Fontana Attending Unavail able Maddie, [...] Attending Unavailab ROSY Rivas Primary Care Unavailable ALLENDEYANIRA, ROSY SIMPSON Primary Care Unavailable JOHNSON PERKINS Admitting Unavailable JOHNSON PERKINS Referring Unavailable GAYATRIROSY Payton Primary Care Unavailable JOHNSON PERKINS Attending Unavailable ANGELA JARAMILLO Attending Unavailab ROSY Rivas Primary Care Unavailable TOMTHONGMaribell, ROSY SIMPSON Primary Care Unavailable ANGELA JARAMILLO Attending Unavailab ROSY Rivas Primary Care Unavailable SEFERINO PARMAR Attending Unavailable ROSY CASTILLO Primary Care Unavailable SEFERINO PARMAR Attending Unavailable ROSY CASTILLO Primary Care Unavailable JOHNSON PERKINS Attending Unavailable Rosy Castillo MD Primary Care Provider [phone] ESTER AUGUSTINE Admitting Unavailable ESTER AUGUSTINE Attending Unavailable FAWN ESTER Primary Care Unavailable ESTER AUGUSTINE Unavailable PROVIDER, UNKNOWN Consulting Unavailable Fawn MARCUM, Ester K Primary Care Provider [phone] Fantasma Romo MD Unavailable Alfredo BURGOS MD, Radha Unavailable [phone] ADITI FRANK Attending Unavailable ROSY CASTILLO Primary Care Unavailable FAWN ESTER K Referring Unavailable ADITI FRANK Referring Unavailable LOLLY DÍAZ Attending Unavailable FAWN, ESTER K Primary Care Unavailable FAWN, ESTER K Primary Care Unavailable ADITI FRANK Attending Unavailable FAWN, ESTER K Referring Unavailable FAWN, ESTER K Primary Care Unavailable ANAMARIA NEVES Attending Unavailabl e FAWN ESTER Maribell Primary Care Unavailable RADHA GALLO MD Attending Unavailable RADHA GALLO MD Referring Unavailable FAWN, ESTER Maribell Primary Care Unavailable RADHA GALLO MD Referring Unavailable FAWN, ESTER K Primary Care Unavailable RADHA GALLO MD Referring Unavailable FAWN, ESTER K Primary Care Unavailable RADHA GALLO MD Referring Unavailable FAWN, ESTER K Primary Care Unavailable RADHA GALLO MD Referring Unavailable FAWN, ESTER Maribell Primary Care Unavailable RADHA GALLO MD Referring Unavailable FAWN, ESTER K Primary Care Unavailable RADHA GALLO MD Attending Unavailable FAWN, ESTER K Primary Care Unavailable ADITI FRANK Referring Unavailable RADHA GALLO MD Referring Unavailable FAWN, [...] Unavailable FAWN, ESTER K Primary Care Unavailable VIDYA CURTIS Referring Unavailable FAWN, ESTER K Primary Care Unavailable ABRIL GUZMAN Attending Unavailable ADITI FRANK Referring Unavailable RADHA GALLO MD Attending Unavailable RADHA GALLO MD Referring Unavailable FAWN, ESTER K Primary Care Unavailable RADHA GALLO MD Referring Unavailable FAWN, ESTER K Primary Care Unavailable Medications Current Medications Medication [...] Onset: 06-12-2022 06-12-2022 Chronic Cancer of breast (15 sources) Malignant neoplasm of upper-inner quadrant of [...] of breast] 07-27-2023 Episodic Residual codes; unclassified (3 sources) Estrogen receptor positive status [ER+]; Translations: [...] Time Vital Sign Value Performing Clinician Faci [facility] 07-21-2022 13:18-0500 Diastolic blood pressure 79 mm[Hg] Angela Jaramillo MD Work Phone: [facility] 07-21-2022 13:18-0500 Heart rate 73 /min Angela Jaramillo MD Work Phone: [facility] 07-21-2022 13:18-0500 Systolic blood pressure 119 mm[Hg] Angela Jaramillo MD Work Phone: [facility] 06-01-2017 09:04-0400 BMI (Body Mass Index) 27.56 kg/m2 Annette Yao MD [facility] 06-01-2017 09:04-0400 BP Diastolic 72 mm[Hg] Annette Yao MD [facility] 06-01-2017 09:04-0400 BP Systolic 106 mm[Hg] Annette Yao MD [facility] 06-01-2017 09:04-0400 Height 170.18 cm Annette Yao MD [facility] 06-01-2017 09:04-0400 Pulse (Heart Rate) 61 /min Annette Yao MD [facility] 06-01-2017 09:04-0400 Weight 79.83 kg Annette Yao MD [facility] Encounters Encounter Date Encounter Type Care Provider Facility Start: 09-07-2023 End: 09-07-2023 ambulatory RADHA GALLO MD Facility:[facility] Start: 09-06-2023 End: 09-06-2023 ambulatory RADHA GALLO MD Facility:[facility] Start: 09-05-2023 End: 09-05-2023 ambulatory RADHA GALLO MD Facility:[facility] Start: 09-04-2023 End: 09-04-2023 ambulatory RADHA GALLO MD Facility:[facility] Start: 09-03-2023 End: 09-03-2023 ambulatory RADHA GALLO MD Facility:[facility] Start: 08-31-2023 End: 08-31-2023 ambulatory RADHA GALLO MD Facility:[facility] Start: 08-30-2023 End: 08-31-2023 ambulatory ESTER AUGUSTINE Facility:[facility] Start: 08-30-2023 End: 08-30-2023 ambulatory RADHA GALLO MD Facility:[facility] Start: 08-29-2023 End: 08-29-2023 ambulatory RADHA GALLO MD Facility:[facility] Start: 08-28-2023 End: 08-28-2023 ambulatory RADHA GALLO MD Facility:[facility] Start: 08-27-2023 End: 08-27-2023 ambulatory RADHA GALLO MD Facility:[facility] Start: 08-24-2023 End: 08-24-2023 ambulatory RADHA GALLO MD Facility:[facility] Start: 08-23-2023 End: 08-23-2023 ambulatory RADHA GALLO MD Facility:[facility] Start: 08-21-2023 End: 08-21-2023 ambulatory ESTER AUGUSTINE Facility:[facility] Start: 08-07-2023 End: 08-07-2023 ambulatory ESTER AUGUSTINE Facility:[facility] Start: 08-03-2023 End: 08-03-2023 ambulatory ESTER AUGUSTINE Facility:[facility] Start: 07-28-2023 End: 07-29-2023 ambulatory ESTER AUGUSTINE Facility:[facility] Start: 07-27-2023 End: 07-27-2023 ambulatory Lolly Díaz [facility] Work Phone: [facility] Procedures Date Procedure Procedure Detail Performing [...] receptor positive (HCC) Expected: 07/27/2023, Expires: 10/26/2023 [facility] Work Phone: Immunizations Immunization Date Immunization Notes Care Provider Fa lala 07-04-2021 influenza, injectabl e, quadrivalent, preservative free Aditi Frank MD Work Phone: [place] [address]-22-2021 influenza virus vaccine, unspecified formulation Aditi Frank MD Work Phone: [facility] 05-20-2012 influenza virus vaccine, unspecified formulation Aditi Frank MD Work Phone: [facility] 07-01-2008 influenza virus vaccine, unspecified formulation Aditi Frank MD Work Phone: [facility] Work Phone: Payers Date Payer Category Payer Private Health Insurance [id number] 2015 Unknown [id number] 2015 Unknown [id number] 1980 Unknown [id number] 2.16. [id number] 1980 Unknown [id number] 2.16.8 40.1.361651.3.579.2.1068 1980 Unknown [id number] 2.16.8 40.1.349635.3.579.2.1068 1980 Unknown [id number] 2.16.8 40.1.061761.3.579.2.1068 1980 Unknown [id number] 2.16.8 40.1.590843.3.579.2.1068 1980 Unknown [id number] 2.16.8 40.1.016394.3.579.2.1068 1980 Unknown [id number] 2.16.8 40.1.806836.3.579.2.1068 1980 Unknown [id number] 2.16.8 40.1.901867.3.579.2.1068 1980 Unknown [id number] 2.16.8 40.1.296558.3.579.2.1068 1980 Unknown [id number] 2.16.8 40.1.639688.3.579.2.1068 1980 Unknown [id number] 2.16.8 40.1.351794.3.579.2.1068 1980 Unknown [id number] 2.16.8 40.1.209051.3.579.2.1068 1980 Unknown [id number] 2.16.8 40.1.723936.3.579.2.1068 1980 Unknown [id number] 2.16.8 40.1.862452.3.579.2.1068 1980 Unknown [id number] 2.16. 840.1.667266.3.579.2. 1980 Unknown [id number] 2.16. 840.1.176587.3.579.2. 1980 Unknown [id number] 2.16. 840.1.217756.3.579.2. 1980 Unknown [id number] 2.16. 840.1.602038.3.579.2. 1980 Unknown [id number] 2.16. 840.1.354134.3.579.2. 1980 Unknown [id number] 2.16. 840.1.369468.3.579.2. 1980 Unknown [id number] 2.16. 840.1.991721.3.579.2. 1980 Unknown [id number] 2.16. 840.1.268765.3.579.2. 1980 Unknown [id number] 2.16.84 0.1.299160.3.579.2.651 Social History Date Type Detail Facility Start: 12-11-2014 End: 02-07-2021 Tobacco smoking status NHIS Never smoked tobacco [facility] Start: 12-11-2014 End: 02-07-2021 Tobacco use and exposure Smokeless tobacco non-user [facility] Start: 06-12-2022 End: 07-13-2023 Alcohol intake Current drinker of alcohol (finding) [facility] Start: 06-12-2022 End: 07-13-2023 Alcohol intake [facility] Start: 1980 Sex Assigned At Not on file [facility] Start: 05-26-2022 End: 08-18-2022 Exposure to SARS-CoV-2 (event) Not sure [facility] Start: 07-13-2023 Tobacco use panel [facility] National Score (1-10 0), lower number is lower risk 72 [facility] Start: 10-23-2016 [facility] Clinical Notes 09-02-2015 to 09-05-2023 Aditi Frank MD - 07/27/2023 2:01 PM Lolly Mendoza [facility] - 07/27/2023 1:03 PM ESTTelephone Encounter - Keerthi Calzada RN - 07/26/2023 11:10 AM EST Note Date & Type Note Facility 09-05-2023 Note HNO ID: [id number] Author: RADHA GALLO MD Service: ? 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 COURSE: adjuvant AREA TREATED: Right breast CURRENT DOSE: 2670 cGy in 10 fx PLANNED DOSE: 5005 cGy in 20 fx Status: Patient states there is no possibility she is at this time SUBJECTIVE: She had mild pruritus resolved with hydrocortisone cream. EXAM: KPS: 90 General Appearance: Alert and oriented. No acute distress. Mild erythema in the right breast. IMAGING/LAB RESULTS: None Treatment chart checked: Yes Patient treatment site reviewed and verified:Yes Port films reviewed and current:Yes Medications started: None ASSESSMENT/PLAN: Clinically stable. Toxicity within expected parameters. Continue radiation treatment as planned. Radha Gallo MD [facility] 08-30-2023 Note HNO ID: [id number] Author: ARBIL GUZMAN MD Service: ? Author Type: Physician Type: Progress Notes Filed: 09/08/2023 17:39 Note Text: Breast Cancer Follow-Up Note [facility] VISIT This visit is a Audio Only Visit encounter which required patient-provider interaction for the medical decision making as documented below. Persons Present: patient I have communicated my name and active licensure. The patient?s identity and physical location were verified at the time of this visit. Leon Luong or their legal customer service representative has been informed of the risks and benefits of -- and alternatives to -- treatment through a remote evaluation and consents to proceed with the evaluation remotely. Total Time Spent: 30 minutes on this telephone encounter SERVICE DATE: August 30, 2023 IDENTIFICATION: Ms Luong is a 42 year old premenopausal woman who was diagnosed with Stage IA (pT1bN0) ER-positive, WA-positive, HER2-negative IDC of the right breast in 05/2023. She is now s/p right lumpectomy/SLNBx and is presently receiving RT. HISTORY OF PRESENT ILLNESS: Patient had screening mammogram done in Summer [...] irregular enhancing mass. Both of these lesions were suspicious and biopsy was recommended. Biopsy completed 05/17/23 showing IDC, grade 2, ER >90%, WA >85%, HER2-negative (IHC 0). She underwent right lumpectomy/SLNBx on 06/06/2023 showing 2 foci of invasive carcinoma measuring 1cm and 5mm. The cancer was grade 2 and 0/2 SLN were involved. She had positive margins (deep, lateral) so returned to the OR for margin re-excision on 06/20/23. 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 Oncotype Dx recurrence score of 16, estimating 4% risk of distant recurrence over 9 years and indicating no benefit of chemotherapy. RT started 08/25/23 Germline genetic testing negative (Integrated BRCAnalysis with MyRisk Panel) INTERVAL HISTORY: Day 6 of RT today, 20 treatments planned. She had had some increase in fatigue with RT but it is tolerable. No plans for additional breast surgery. She is very happy to hear that her Oncotype testing was low risk. PAST MEDICAL HISTORY: PAST MEDICAL HISTORY Diagnosis [...] PAST SURGICAL HISTORY OF 1998 WISDOM TEETH CURRENT MEDICATIONS: tamoxifen (NOLVADEX) 20 mg tablet Take 1 tablet (20 mg) by mouth once daily. venlafaxine ER (EFFEXOR XR) 37.5 mg 24 hr capsule Cetirizine (ZYRTEC) 10 mg cap Take by mouth. cholecalciferol (VITAMIN D-3) 5,000 unit tab Take 5,000 Units by mouth once daily. ALLERGIES/INTOLERANCES: ALLERGIES No Known Allergies FAMILY HISTORY: FAMILY HISTORY Problem Relation Age of Onset Lipids Mother Heart Father OR Alcohol/Drug Father Coronary Artery Disease Father other (Kidney Stents and Stretching) Father Lipids Brother Lipids Maternal Grandfather Cancer Paternal Grandmother Coronary Artery Disease Paternal Grandfather Breast Cancer Paternal Aunt Ovarian cancer No Family History SOCIAL HISTORY: Patient is and has 2 children. 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 REVIEW OF SYSTEMS: Complete 10 system ROS done and negative except as stated above in the interval history. IMPRESSION: Ms Luong is a 42 year old premenopausal woman who was diagnosed with Stage IA (pT1bN0) ER-positive, WA-positive, HER2-negative IDC of the right breast in 05/2023. She is now s/p right lumpectomy/SLNBx and is presently receiving RT. STAGING: Cancer Staging Malignant neoplasm of upper-inner quadrant of right breast in female, estrogen receptor positive (HCC) (HCC) Staging form: Breast, AJCC 8th Edition - Clinical stage (more content not included)... [facility] 08-29-2023 Note HNO ID: [id number] Author: RADHA GALLO MD Service: ? Author [...] radiation treatment as planned. Radha Gallo MD [facility] 08-21-2023 Note HNO ID: [id number] Author: RADHA GALLO MD Service: Radiation Oncology Author Type: Physician Type: Progress Notes Filed: 08/22/2023 10:19 Note Text: LEON LUONG [id number] 08/21/2023 [facility] Department of Radiation Oncology [facility] RADIATION ONCOLOGY SIMULATION NOTE DATE OF [...] Electronically Signed Radha Gallo M.D./priyanka :19 AM [facility] 08-21-2023 Note HNO ID: [id number] Author: RADHA GALLO MD Service: Radiation Oncology Author Type: Physician Type: Progress Notes Filed: 08/22/2023 10:18 Note Text: LEON LUONG [id number] 08/21/2023 [facility] Department of Radiation Oncology Treatment Planning [...] Electronically Signed Radha Gallo M.D. :18 AM [facility] 08-10-2023 Note HNO ID: [id number] Author: Aditi Frank MD Service: ? Author Type: Physician Type: Progress Notes Filed: 08/10/2023 10:50 AM Note Text: maribell [facility] 08-09-2023 Note HNO ID: [id number] Author: Abril Guzman MD Service: ? Author [...] was diagnosed with Stage IA (pT1bN0) ER-positive, WA-positive, HER2-negative IDC of the right breast in [...] 05/17/23 showing IDC, grade 2, ER >90%, WA >85%, HER2-negative (IHC 0). She underwent right [...] HISTORY: PAST MEDICAL HISTORY Diagnosis Date FRACTURE 1987 [...] Age of Onset Lipids Mother Heart Father OR Alcohol/Drug Father Coronary Artery Disease Father other (Kidney Stents and Stretching) Father Lipids Brother Lipids Maternal Grandfather Cancer Paternal Grandmother Coronary Artery Disease Paternal Grandfather Breast Cancer Paternal Aunt Ovarian cancer No Family History SOCIAL HISTORY: Patient is and has 2 children. 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 REVIEW OF [...] was diagnosed with Stage IA (pT1bN0) ER-positive, WA-positive, HER2-negative IDC of the right breast in 05/2023. She is now s/p right lumpectomy/SLNBx and presents (more content not included)... [facility] 08-07-2023 Note HNO ID: [id number] Author: Silvia Bui LPN Service: ? Author Type: LICENSED NURSE Type: Progress Notes Filed: 08/07/2023 1:02 PM Note Text: DATE OF PHOTOS: 08/07/2023 Body Part: Breasts Silvia Bui LPN August 07, 2023 1:02 PM [facility] 08-07-2023 Note HNO ID: [id number] Author: Anamaria Neves MD Service: ? Author Type: Physician Type: Progress Notes Filed: 08/08/2023 5:39 PM Note Text: [facility] Department of Plastic Surgery BREAST RECONSTRUCTION EVALUATION [...] No Breast Surgeon: Dr. Frank Oncologist: Dr. Langford/[facility] Prior Mammogram: Yes, date: 03/20/2023 Family History [...] 2 stage reconstruction with placement of tissue principal java developer with subsequent permanent implant. She understands that 2 stage reconstruction will require at least 2 surgeries and a matching procedure for the unaffected breast. She understands that she may not be a candidate for (more content not included)... [facility] 07-27-2023 Note HNO ID: [id number] Author: Aditi Frank MD Service: ? Author [...] Age of Onset Lipids Mother Heart Father OR Alcohol/Drug Father Coronary Artery Disease Father other [...] Aditi Frank MD ?I verified the medical management trainer/nurse documentation in the medical record, and made appropriate changes. I personally performed a history, physical exam and medical decision making. Aditi Frank MD Medical Decision Making: Problems: High: Illness/injury w/ threat to life/body function Data: Unique test result(s) reviewed: 1 Risk: Minimal: Minimal risk from testing/treatment Medical Decision Making Level: 2 - Straightforward [facility] 07-27-2023 Note HNO ID: [id number] Author: Lolly Díaz [facility] Service: ? Author Type: Genetic Counselor Type: Progress Notes Filed: 07/27/2023 1:37 PM Note Text: [facility] Consultation Note Genetic Counselor: Lolly Díaz MS, [facility] Patient: Leon Luong Patient Name and confirmed at initiation of visit. This visit was conducted via [employer] I have communicated my name and active licensure. The patient's identity and physical location were verified at the time of this visit. Either the patient or their legal customer service representative has been informed of the risks and benefits of -- and alternatives to -- treatment through a remote evaluation and consents to proceed with the evaluation remotely. HIGH LEVEL SUMMARY: The patient's personal and family history is potentially suggestive of a hereditary breast cancer syndrome. The patient provided informed consent for Integrated BRACAnalysis with myRiRobert Applebaum MD through [employer]. Results are expected in 2 weeks. IDENTIFICATION [...] Age of Onset Lipids Mother Heart Father OR Alcohol/Drug Father Coronary Artery Disease Father other [...] Network and [employer] (more content not included)... [facility] 07-27-2023 History of Present illness Narrative [...] Age of Onset Lipids Mother Heart Father OR Alcohol/Drug Father Coronary Artery Disease Father other [...] Aditi Frank MD I verified the medical management trainer/nurse documentation in the medical record, and made appropriate changes. I personally performed a history, physical exam and medical decision making. Aditi Frank MD Medical Decision Making: Problems: High: Illness/injury w/ threat to life/body function Data: Unique test result(s) reviewed: 1 Risk: Minimal: Minimal risk from testing/treatment Medical Decision Making Level: 2 - Straightforward documented in this encounter [facility] 07-27-2023 History of Present illness Narrative Images from the original note were not included. [facility] Consultation Note Genetic Counselor: Lolly Díaz, , [facility] Patient: Leon Luong Patient Name and confirmed at initiation of visit. This visit was conducted via [employer] I have communicated my name and active licensure. The patient's identity and physical location were verified at the time of this visit. Either the patient or their legal customer service representative has been informed of the risks and benefits of -- and alternatives to -- treatment through a remote evaluation and consents to proceed with the evaluation remotely. HIGH LEVEL SUMMARY: The patient's personal and family history is potentially suggestive of a hereditary breast cancer syndrome. The patient provided informed consent for Integrated BRACAnalysis with Willie through [employer]. Results are expected in 2 weeks. IDENTIFICATION [...] Age of Onset Lipids Mother Heart Father OR Alcohol/Drug Father Coronary Artery Disease Father other [...] appropriate standard National Comprehensive Cancer Network and [place] [employer] guidelines, with consideration of their [...] for the following testing: Integrated BRACAnalysis with [employer] through [employer]. The [employer] panel includes APC, CRISTOBAL, AXIN2, BAP1, BARD1, [...] to the presenting phenotype. We discussed that [employer] may contact the patient by text or phone call regarding billing. The patient should watch for this communication and respond promptly. The patient should contact [employer] directly with any billing questions (ph. [phone]). Per the patient's request, we will contact her by telephone to discuss these results. A follow up genetic counseling visit will be scheduled if requested. The patient was seen for a total of 30 minutes, greater than 50% of which was spent [id number] counseling. This plan is being carried out under the oversight of Dr. Vidya Curtis. This note will also be sent to the referring provider via the electronic medical record. Lolly Díaz MS, [facility], Licensed, Certified Genetic Counselor [facility] CC: Dr. Aditi Curtis documented in this encounter [facility] 07-26-2023 Miscellaneous Notes Summary: Nurse Navigation Call placed to patient for navigation. Patient did not answer, voicemail left identifying self and return number. Keerthi Calzada RN, BSN documented in this encounter [facility] 07-25-2023 Note HNO ID: [id number] Author: Radha Gallo MD, MD Service: ? [...] Stage IA (cT1b, cN0(sn), cM0, G2, ER+, WA+, HER2-) - Signed by Aditi Frank MD [...] It's ER positive (>90%, moderate to strong), WA positive (85%, strong) and Her2 0. Biopsy of the right breast 2:00 lesion, 2 cm from the nipple also showed grade 2-3 invasive ductal carcinoma. It's ER positive (>95%, moderate to strong), WA positive (>95%, moderate to strong) and Her2 [...] taking: Reported on 07/13/2023) VITS W-CA,FE,FA,<1MG, ( [id number] ORAL) Take by mouth. (Patient not taking: Reported on 07/13/2023) No current facility-administered medications on file prior to visit. PAST MEDICAL HISTORY Diagnosis Date FRACTURE 1987 [...] Age of Onset Lipids Mother Heart Father OR Alcohol/Drug Father Coronary Artery Disease Father other [...] negative for prolon (more content not included)... [facility] 07-19-2023 Note HNO ID: [id number] Author: Shelley Bennett RN Service: ? Author Type: Registered Nurse Type: Progress Notes Filed: 07/19/2023 8:59 AM Note Text: Leon Luong was reviewed for potential clinical trial enrollment on [facility][id number] by the [facility]: [facility] on 07/19/23. Per initial review, patient has disease type breast and appears to be not eligible based on age . Requesting republican notified. Shelley Bennett RN [facility] 07-19-2023 History of Present illness Narrative Leon Felizmirella was reviewed for potential clinical trial enrollment on [facility] #[id number] by the Region: [facility] on 07/19/23. Per initial review, patient has disease type breast and appears to be not eligible based on age . Requesting republican notified. Shelley Bennett RN documented in this encounter [facility] 07-18-2023 Miscellaneous Notes LVM to reschedule her appointment with Dr. Neves. Dede documented in this encounter [facility] 07-16-2023 Miscellaneous Notes Patient called back [...] Dr.Lee Krystina Meyers documented in this encounter [facility] 07-13-2023 Note HNO ID: [id number] Author: Aditi Frank MD Service: ? Author [...] Age of Onset Lipids Mother Heart Father OR Alcohol/Drug Father Coronary Artery Disease Father other [...] taking: Reported on 07/13/2023) VITS W-CA,FE,FA,<1MG, ( MTETCDBT-NOF-BH-FA ORAL) Take by mouth. (Patient not taking: [...] patient with T1b N0 M0, ER positive, WA positive, HER2 negative, Stage 1A right breast [...] detail as well. -Genetics consult is pending -Chitra (more content not included)... [facility] 07-13-2023 Note HNO ID: [id number] Author: Keerthi Calzada RN Service: ? Author Type: Registered Nurse Type: Progress Notes Filed: 07/13/2023 4:05 PM Note Text: Summary: Nurse Navigation Introduced self to patient as nurse navigator. Explained role. Packet of information given to patient including introduction letter, information sheets on oncology resources, navigation information, art therapy, financial assistance, social services specialist, [facility]. Encouraged patient to call with any questions or concerns. Keerthi Calzada RN, BSN [facility] 08-19-2022 History of Present illness Narrative [...] an as-needed basis. documented in this encounter [facility] 07-28-2022 History of Present illness Narrative Recent office vist, no covid screening needed documented in this encounter [facility] 06-28-2022 History of Present illness Narrative [...] with cold for better symptom management. [facility] Work Phone: 06-12-2022 History of Present illness Narrative [facility] [address] [facility] [address] [facility] [id number] Chief Complaint Patient presents with Results MRI [...] the treatment plan. documented in this encounter [facility] documented as of this encounter (statuses as of 07/16/2023) [facility] History of Past illness Narrative* Problem [...] of this encounter (statuses as of 07/17/2023) [facility] History of Past illness Narrative* Problem [...] of this encounter (statuses as of 07/18/2023) [facility] History of Past illness Narrative* Problem [...] of this encounter (statuses as of 07/19/2023) [facility] History of Past illness Narrative* Problem [...] an ultrasound for dating. History of 04/02/2012 04/26/2 013 Overview: 04/02/2012Pt had a previous C [...] of this encounter (statuses as of 07/25/2023) [facility] History of Past illness Narrative* Problem [...] of this encounter (statuses as of 07/26/2023) [facility] History of Past illness Narrative* Problem [...] of this encounter (statuses as of 07/27/2023) [facility] History of Past illness Narrative* Problem [...] of this encounter (statuses as of 07/28/2023) [facility] Patellofemoral chondrosis of left knee- [facility] Knee instability, 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 [facility] Diagnosis 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, 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, 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, left [facility] Diagnosis Patellofemoral chondrosis of left knee- Primary [facility] Diagnosis Malignant neoplasm of upper-inner quadrant of right breast in female, estrogen receptor positive (HCC) (HCC)- Primary Family history of malignant neoplasm of breast [facility] Diagnosis Malignant neoplasm of upper-inner quadrant of right breast in female, estrogen receptor positive (HCC) (HCC)- Primary Family history of malignant neoplasm of breast [facility] Narrative arrives to outpatient PT c/o . Pt presents with the following impairments: . These impairments contribute to difficulty in activity limitations and participation restrictions including . Thept s signs and symptoms are consistent with likely . The pt will benefit from skilled PT [id number] for 8 weeks to address the above stated impairments and functional limitations to maximize participation and ease in household, social, and work related activities. The pt has a prognosis w hen considering positive factors including with barriers such as . The pt verbalized understanding and agreement to goals and POC. Thank you for this referral and please call [phone] with any questions or concerns. [facility] Work Phone: History of Present illness Narrative* [...] you for this referral and please call [phone] with any questions or concerns. * Clinical Presentation: Stable and/or uncomplicated characteristics. * Level of Complexity: low * Problem List: activity limitations, ADLs/IADLs/self care skills, decreased knowledge of HEP, flexibility, gait/locomotion, pain, participation restrictions, range of motion/joint mobility and strength. [facility] Work Phone: History of Present illness NarrativePatient identified by name and date of . Patient presented with visual and palpable edema around L knee. She ambulated into clinic with antalgic gait pattern with lack of heel strike and toe off. She was able to preform SLR in min range with quad lag noted. [facility] Work Phone: History of Present illness Narrative* Patient identified by name and * Patient challenged with exercises. Patient tolerates progressions with mild difficulty through available range. Demo's tolerance in sidelying hip abduction and adduction. Gameready at end of session to help decrease symptoms and edema. [facility] Work Phone: History of Present illness NarrativeFair tolerance to progressions in ther ex. Noted catching with mid flexion of L knee. Noted edema of L knee this date compared to R LE. Verbal cues for quadriceps engagement with SLR and proper form with SAQ. Pain with L knee flexion with heel slides. 0/10 pain reported following GameReady. [facility] Work Phone: History of Present illness NarrativePatient has good understanding of all therapeutic exercises performed today with no major increasesin pain t/o. 0/10 pain reported following GameReady application. [facility] Work Phone: History of Present illness Narrative* Patient confirmed name and date of this session. * Pt with good tolerance to session with no c/o increased pain except with heel slides. Edema observed of L knee. Game ready applied this date to reduce pain and edema with pt reports of 0/10 after. Skin intact pre/post Game ready. [facility] Work Phone: History of Present illness NarrativePatient identified by name and date of . Patient demonstrated antalgic gait with entering clinic area. She presented with edema around her L knee and tenderness to the touch. She presented with poping/cracking with heel slides this date.[facility] Work Phone: History of Present illness NarrativePatient identified by name and date of . Patient was able to progress with reps with LAQ with minimal increased Sx. She continues to demonstrated difficulty with ROM with increased Sx noted during and after. She responded well to game ready with reduction of Sx after.[facility] Work Phone: History of Present illness NarrativePt [...] goals not met due to chronicity of sxs.[facility] Work Phone: History of Present illness NarrativePatient identified by name and date of . Patient presented with palpable tension in HS, IT andcalf this date that responded well to STW with mild pressure. She required cues for new stretches and was able to complete. She responded well to vaso with reduction of Sx and edema after treatment.[facility] Work Phone: History of Present illness Narrative* Patient has tenderness along lateral joint line of the knee. * Tenderness along ITB and along Pes Anserine region with light palpation. * Antalgic gait upon arrival. * Patient was in too much pain to complete PRE's this date, so focus was on the STW, stretches and vasopneumatic. [facility] Work Phone: reason for visit Narrative* Initial Evaluation . L knee instability. * Referred by: Johnson Perkins CNP [facility] Work Phone: Reason for Referral Specialty Diagnoses / Procedures Referred By Regan arreola Referred To Contact Physical Therapy Diagnoses Knee instability, left Patellofemoral chondrosis of left knee Johnson Perkins, DISTANCE LEARNING COORDINATOR [address] [place] [address] Referral ID Status Reason Start Date Expiration Date Visits Requested Visits Authorized [id number] Authorized Patient Preference 06/13/2022 06/13/2023 1 1 [...] knee Reason Comments Follow-up Reason Comments Outside Tvra-Yql-GRE Ordered Called Romario lopez at [facility] pathology to check status on requested pathology [...] Reason Comments Research Prescreening Reason Comments Outside Stqn-Ema-MYK Ordered Spoke with patient on Sunday regarding need for signed release for pathology slides from [facility]. Patient had stated that Dr. Romo's office could request slides without needing release and that she would contact his office. Spoke with Yanique at 's office, per Yanique they were also told that a signed release was needed from patient. Left message for patient to reach out to Sterling to see about signing a release. Julieta Liang LPN Reason Comments Outside Kqls-Xme-VHO Ordered Contacted Michele ibanez for status on request for pathology slides. Lynn stated that she sent medical release form to patient to have her sign, and she is still waiting for patient to return form. Left message for patient to please return signed form to Lynn caro. 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 Machine Operator Relationship Specialty Start Date End Date Rosy Castillo MD PCP - General Family Medicine 12/21/15 Washerette Machine Operator Relationship Specialty Start Date End Date Rosy Castillo MD PCP - General Family Medicine 12/21/15 Washerette Machine Operator Relationship Specialty Start Date End Date Rosy Castillo MD PCP - General Family Medicine 12/21/15 Washerette Machine Operator Relationship Specialty Start Date End Date Rosy Castillo MD [address] [place] [address] PCP - General Family Medicine 07/31/22 Washerette Machine Operator Relationship Specialty Start Date End Date Ester Augustine CNP [address] [place] [address] PCP - General Family Medicine 07/16/23 Fantasma Romo MD [address] [facility] [address] [place] [address] General Surgery 07/16/23 Washerette Machine Operator Relationship Specialty Start Date End Date Ester Augustine CNP [address] [place] [facility] [place] [address] PCP - General Family Medicine 07/16/23 Fantasma Romo MD [address] [place] [address] General Surgery 07/16/23 Washerette Machine Operator Relationship Specialty Start Date End Date Ester Augustine CNP [address] [place] [facility] [place] [address] PCP - General Family Medicine 07/16/23 Fantasma Romo MD [address] [place] [address] General Surgery 07/16/23 Radha Gallo MD, MD [address] [facility] [address] Radiation Oncology 07/17/23 Washerette Machine Operator Relationship Specialty Start Date End Date Ester Augustine CNP [address] [place] [address] PCP - General Family Medicine 07/16/23 Fantasma Romo MD [address] [place] [address] [place] [address] General Surgery 07/16/23 Radha Gallo MD, [address] [place] [address] Radiation Oncology 07/17/23 Washerette Machine Operator Relationship Specialty Start Date End Date Ester Augustine CNP [address] [place] [facility] [place] [address] PCP - General Family Medicine 07/16/23 Fantasma Romo MD [address] [address] General Surgery 07/16/23 Radha Gallo MD, [address] [place] [address] Radiation Oncology 07/17/23 Washerette Machine Operator Relationship Specialty Start Date End Date Ester Augustine CNP [address] [place] [address] PCP - General Family Medicine 07/16/23 Fantasma Romo MD [address] [address] General Surgery 07/16/23 Radha Gallo MD, [address] [place] [address] Radiation Oncology 07/17/23 Washerette Machine Operator Relationship Specialty Start Date End Date Ester Augustine CNP [address] [place] [address] PCP - General Family Medicine 07/16/23 Fantasma Romo MD [address] [address] General Surgery 07/16/23 Radha Gallo MD, [address] [place] [address] Radiation Oncology 07/17/23 INFORMATION SOURCE (unrecogn ized section and content) DATE CREATED AUTHOR AUTHOR'S ORGANIZ ATION 08/04/2022 [facility] DATE CREATED AUTHOR AUTHOR'S ORGANIZ ATION 08/05/2022 [employer] DATE CREATED AUTHOR AUTHOR'S ORGANIZ ATION 08/11/2022 [facility] DATE CREATED AUTHOR AUTHOR'S ORGANIZ ATION 08/18/2022 [facility] DATE CREATED AUTHOR AUTHOR'S ORGANIZ ATION 01/22/2023 [facility] DATE CREATED AUTHOR AUTHOR'S ORGANIZ ATION 09/08/2023 [facility] DATE CREATED AUTHOR AUTHOR'S ORGANIZ ATION 09/09/2023 [facility] Source Comments (unrecognize d section and content) In the event this informatio n is protected by the Federal Confidentiality of Alcohol and Drug Abuse Patient Records regulations: The Federal rules restrict any use of the information to criminally investigate or prosecute any alcohol or drug abuse patient.[facility] the event this information is protected by the Federal Confidentiality of Alcohol and Drug Abuse Patient Records regulations: The Federal rules restrict any use of the information to criminally investigate or prosecute any alcohol or drug abuse patient.[facility] the event this information is protected by the Federal Confidentiality of Alcohol and Drug Abuse Patient Records regulations: The Federal rules restrict any use of the information to criminally investigate or prosecute any alcohol or drug abuse patient.[facility]In the event this information is protected by the Federal Confidentiality of Alcohol and Drug Abuse Patient Records regulations: The Federal rules restrict any use of the information to criminally investigate or prosecute any alcohol or drug abuse patient.[facility] HospitalIn the event this information is protected by the Federal Confidentiality of Alcohol and Drug Abuse Patient Records regulations: The Federal rules restrict any use of the information to criminally investigate or prosecute any alcohol or drug abuse patient.[facility] Hospital[facility] the event this information is protected by the Federal Confidentiality of Alcohol and Drug Abuse Patient Records regulations: The Federal rules restrict any use of the information to criminally investigate or prosecute any alcohol or drug abuse patient.[facility] HospitalIn the event this information is protected by the Federal Confidentiality of Alcohol and Drug Abuse Patient Records regulations: The Federal rules restrict any use of the information to criminally investigate or prosecute any alcohol or drug abuse patient.[facility] Hospital[facility] the event this information is protected by the Federal Confidentiality of Alcohol and Drug Abuse Patient Records regulations: The Federal rules restrict any use of the information to criminally investigate or prosecute any alcohol or drug abuse patient.[facility] HospitalIn the event this information is protected by the Federal Confidentiality of Alcohol and Drug Abuse Patient Records regulations: The Federal rules restrict any use of the information to criminally investigate or prosecute any alcohol or drug abuse patient.[facility] HospitalIn the event this information is protected by the Federal Confidentiality of Alcohol and Drug Abuse Patient Records regulations: The Federal rules restrict any use of the information to criminally investigate or prosecute any alcohol or drug abuse patient.[facility] FOR RECORDS PERTAINING TO PATIENTS WHO [...] BE BASED ON THE PRIMARY CLINICAL RECORDS. [facility]. provides no warranty or guarantee of the accuracy or completeness of information in this document.
== END | disposition home or self-care (01) ==
LOC: US 12:10
PROVIDERS: PCP Nurse Practitioner Family; Referring Provider Nurse Practitioner Women's Health; Visit Provider Nurse Practitioner Women's Health
DX: R10.2 Pelvic and perineal pain (principal)
CPT/HCPCS: 76830; 76856

== ENCOUNTER → 2023-09-13 | Outpatient (CLI) | payer OTHER, SELFPAY ==
--- OUTSIDE RECORDS SUMMARY | 2023-09-13 08:24 | XMS RPT_ITS | CCD ---
Author Name Unknown Address [address] [place] [address] Organization [facility] Care Team Providers Care Packaging Specialist Name Role Phone Annette Yao MD Unavailable [phone] Rosy Castillo MD Primary Care Provider [phone] Pending Provider Unavailable Unavailable JOHNSON PERKINS Referring Unavailable JOHNSON PERKINS Attending Unavailable ROSY CASTILLO Primary Care Unavailable Rosy Castillo MD Primary Care Provider [phone] Maddie, Ms. Johnson Fontana Attending Unavail able [...] Unavailable JOHNSON PERKINS Referring Unavailable YO, ROSY CALVIN Primary Care Unavailable JOHNSON PERKINS Attending Unavailable ANGELA JARAMILLO Attending Unavailab oren ALLENROSY MCMILLAN Primary Care Unavailable TOMTHONGFito, ROSY SIMPSON Primary Care Unavailable ANGELA JARAMILLO Attending Unavailab ROSY Rivas Primary Care Unavailable SEFERINO PARMAR Attending Unavailable YO, ROSY SIMPSON Primary Care Unavailable SEFERINO PARMAR Attending Unavailable ALLENROSY MCMILLAN Primary Care Unavailable JOHNSON PERKINS Attending Unavailable Rosy Castillo MD Primary Care Provider [phone] ESTER AUGUSTINE Admitting Unavailable CARLEE AUGUSTINEA Attending Unavailable FAWN, ESTER Primary Care Unavailable CARLEE AUGUSTINEA Consulting Unavailable PROVIDER, UNKNOWN Consulting Unavailable Fawn MARCUM, Ester K Primary Care Provider Fantasma Romo MD Unavailable Alfredo BURGOS MD, Radha Unavailable [phone] ADITI FRANK Attending Unavailable ROSY CASTILLO Primary Care Unavailable FAWN, ESTER K Referring [...] Unavailable FAWN, ESTER K Primary Care Unavailable RDAHA GALLO MD Referring Unavailable FAWN, ESTER K [...] Time Vital Sign Value Performing Clinician Faci lity 07-21-2022 13:18-0500 Diastolic blood pressure 79 mm[Hg] Angela Jaramillo MD Work Phone: [facility] 07-21-2022 13:18-0500 Heart rate 73 /min Angela Jaramillo MD Work Phone: [facility] 07-21-2022 13:18-0500 Systolic blood pressure 119 mm[Hg] Angela Jaramillo MD Work Phone: [facility] 06-01-2017 09:04-0400 BMI (Body Mass Index) 27.56 kg/m2 Annette Yao MD [facility] 06-01-2017 09:04-0400 BP Diastolic 72 mm[Hg] Annette Yao MD [facility] 06-01-2017 09:04-0400 BP Systolic 106 mm[Hg] Annette Yao MD [facility] 06-01-2017 09:04-0400 Height 170.18 cm Annette Yao MD [facility] 06-01-2017 09:04-0400 Pulse (Heart Rate) 61 /min Annette Yao MD [facility] 06-01-2017 09:04-0400 Weight 79.83 kg Annette Yao MD [facility] Encounters Encounter Date Encounter Type Care Provider Facility Start: 09-11-2023 End: 09-11-2023 paris GALLO MD Facility:[facility] Start: 09-10-2023 End: 09-10-2023 paris GALLO MD Facility:[facility] Start: 09-07-2023 End: 09-07-2023 ambulatory RADHA GALLO MD Facility:[facility] Start: 09-06-2023 End: 09-06-2023 paris GALLO MD Facility:[facility] Start: 09-05-2023 End: 09-05-2023 ambulatory RADHA GALLO MD Facility:[facility] Start: 09-04-2023 End: 09-04-2023 ambulatory RADHA GALLO MD Facility:[facility] Start: 09-03-2023 End: 09-03-2023 ambulatory RADHA GALLO MD Facility:[facility] Start: 08-31-2023 End: 08-31-2023 ambulatory RADHA GALLO MD Facility:[facility] Start: 08-30-2023 End: 08-31-2023 ambulatory ESTER AUGUSTINE Facility:[facility] Start: 08-30-2023 End: 08-30-2023 ambulatory RADHA GALLO MD Facility:[facility] Start: 08-29-2023 End: 08-29-2023 ambulatory RADHA GALLO MD Facility:[facility] Start: 08-28-2023 End: 08-28-2023 ambulatory RADHA GALLO MD Facility:[facility] Start: 08-27-2023 End: 08-27-2023 ambulatory RADHA GALLO MD Facility:[facility] Start: 08-24-2023 End: 08-24-2023 ambulatory RADHA GALLO MD Facility:[facility] Start: 08-23-2023 End: 08-23-2023 ambulatory RADHA GALLO MD Facility:[facility] Start: 08-21-2023 End: 08-21-2023 ambulatory ESTER AUGUSTINE Facility:[facility] Start: 08-07-2023 End: 08-07-2023 ambulatory ESTER AUGUSTINE Facility:[facility] Start: 08-03-2023 End: 08-03-2023 ambulatory ESTER AUGUSTINE Facility:[facility] Start: 07-28-2023 End: 07-29-2023 ambulatory ESTER AUGUSTINE Facility:[facility] Start: 07-27-2023 End: 07-27-2023 ambulatory Lolly Díaz [facility] Work Phone: [facility] Procedures Date Procedure Procedure Detail Performing Clinician [...] receptor positive (HCC) Expected: 07/27/2023, Expires: 10/26/2023 [facility] Work Phone: Immunizations Immunization Date Immunization Notes Care Provider Fa [facility] 07-04-2021 influenza, injectabl e, quadrivalent, preservative free Aditi Frank MD Work Phone: [facility] 07-04-2021 influenza virus vaccine, unspecified formulation Aditi Frank MD Work Phone: [facility] 05-20-2012 influenza virus vaccine, unspecified formulation Aditi Frank MD Work Phone: [facility] 07-01-2008 influenza virus vaccine, unspecified formulation Aditi Frank MD Work Phone: [facility] Work Phone: Payers Date Payer Category Payer Private Health Insurance [id number] 2015 Unknown [id number] 2015 Unknown [id number] 1980 Unknown [id number] 2.16. [id number] 1980 Unknown [id number] 2.16.8 40.1.684016.3.579.2.1068 1980 Unknown [id number] 2.16.8 40.1.544886.3.579.2.1068 1980 Unknown [id number] 2.16.8 40.1.510128.3.579.2.1068 1980 Unknown [id number] 2.16.8 40.1.841941.3.579.2.1068 1980 Unknown [id number] 2.16.8 40.1.711947.3.579.2.1068 1980 Unknown [id number] 2.16.8 40.1.233177.3.579.2.1068 1980 Unknown [id number] 2.16.8 40.1.999663.3.579.2.1068 1980 Unknown [id number] 2.16.8 40.1.424147.3.579.2.1068 1980 Unknown [id number] 2.16.8 40.1.061692.3.579.2.1068 1980 Unknown [id number] 2.16.8 40.1.830830.3.579.2.1068 1980 Unknown [id number] 2.16.8 40.1.179061.3.579.2.1068 1980 Unknown [id number] 2.16.8 40.1.036093.3.579.2.1068 1980 Unknown [id number] 2.16.8 40.1.739004.3.579.2.1068 1980 Unknown [id number] 2. 840.1.881638.3.579.2 1980 Unknown [id number] 2. 840.1.854794.3.579.2 1980 Unknown [id number] 2.16. 840.1.262349.3.579.2 1980 Unknown [id number] 2.16 840.1.411169.3.579.2 1980 Unknown [id number] 2.16 840.1.674992.3.579.2 1980 Unknown [id number] 2.16. 840.1.386938.3.579.2 1980 Unknown [id number] 2.16. 840.1.560895.3.579.2 1980 Unknown [id number] 2.16. 840.1.586711.3.579.2 1980 Unknown [id number] 2.16.84 0.1.240504.3.579.2.651 Social History Date Type Detail Facility Start: 12-11-2014 End: 02-07-2021 Tobacco smoking status NHIS Never smoked tobacco [facility] Start: 12-11-2014 End: 02-07-2021 Tobacco use and exposure Smokeless tobacco non-user [facility] Start: 06-12-2022 End: 07-13-2023 Alcohol intake Current drinker of alcohol (finding) [facility] Start: 06-12-2022 End: 07-13-2023 Alcohol intake [facility] Start: 1980 Sex Assigned At Not on file [facility] Start: 05-26-2022 End: 08-18-2022 Exposure to SARS-CoV-2 (event) Not sure [facility] Start: 07-13-2023 Tobacco use panel [facility] National Score (1-10 0), lower number is lower risk 72 [facility] Start: 10-23-2016 Alcohol [facility] Clinical Notes 09-02-2015 to 09-05-2023 Aditi Frank MD - 07/27/2023 2:01 PM Lolly Mendoza LGC - 07/27/2023 1:03 PM ESTTelephone Michele - Keerthi Calzada RN - 07/26/2023 11:10 AM EST Note Date & Type Note Facility 09-05-2023 Note HNO ID: [id number] Author: RADHA GALLO MD Service: ? Author [...] Radha Gallo MD [facility] 08-30-2023 Note HNO ID: [id number] Author: ABRIL GUZMAN MD Service: ? Author Type: Physician Type: Progress Notes Filed: 09/08/2023 17:39 Note Text: Breast Cancer Follow-Up Note [facility] VISIT This visit is a Audio Only Visit encounter which required patient-provider interaction for the medical decision making as documented below. Persons Present: patient I have communicated my name and active licensure. The patient?s identity and physical location were verified at the time of this visit. Leon Luong or their legal delivery representative has been informed of the risks and benefits of -- and alternatives to -- treatment through a remote evaluation and consents to proceed with the evaluation remotely. 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 She underwent right [...] Age of Onset Lipids Mother Heart Father [place] Alcohol/Drug Father Coronary Artery Disease Father other (Kidney Stents and Stretching) Father Lipids Brother Lipids Maternal Grandfather Cancer Paternal Grandmother Coronary Artery Disease Paternal Grandfather Breast Cancer Paternal Aunt Ovarian cancer No Family History SOCIAL HISTORY: Patient is and has 2 children. 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 REVIEW OF SYSTEMS: Complete 10 system ROS done and negative except as stated above in the interval history. 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 She is now s/p right lumpectomy/SLNBx and is presently receiving RT. STAGING: Cancer Staging Malignant neoplasm of upper-inner quadrant of right breast in female, estrogen receptor positive (HCC) (HCC) Staging form: Breast, AJCC 8th Edition - Clinical stage (more content not included)... [facility] 08-29-2023 Note HNO ID: [id number] Author: RADHA GALLO MD Service: ? Author [...] [facility] 08-21-2023 Note HNO ID: [id number] Author: RADHA GALLO MD Service: Radiation Oncology Author Type: Physician Type: Progress Notes Filed: 08/22/2023 10:19 Note Text: LEON LUONG [id number] 08/21/2023 [facility] Department of Radiation Oncology [facility] [place] RADIATION ONCOLOGY SIMULATION NOTE DATE OF SIMULATION: [...] if applicable. Electronically Signed Radha Gallo M.D./priyanka 410:19 AM [facility] 08-21-2023 Note HNO ID: [id number] Author: RADHA GALLO MD Service: Radiation Oncology Author Type: Physician Type: Progress Notes Filed: 08/22/2023 10:18 Note Text: LEON LUONG [id number] 08/21/2023 [facility] Department of Radiation Oncology Treatment Planning [...] and DVH. Electronically Signed Radha Gallo M.D. 410:18 AM [facility] 08-10-2023 Note HNO ID: [id number] Author: Aditi Frank MD Service: ? Author Type: Physician Type: Progress Notes Filed: 08/10/2023 10:50 AM Note Text: k [facility] 08-09-2023 Note HNO ID: [id number] Author: Abril Guzman MD Service: ? 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 She underwent right [...] HISTORY OF 1998 WISDOM TEETH CURRENT MEDICATIONS: venlafaxine ER (EFFEXOR [...] Age of Onset Lipids Mother Heart Father [place] Alcohol/Drug Father Coronary Artery Disease Father other (Kidney Stents and Stretching) Father Lipids Brother Lipids Maternal Grandfather Cancer Paternal Grandmother Coronary Artery Disease Paternal Grandfather Breast Cancer Paternal Aunt Ovarian cancer No Family History SOCIAL HISTORY: Patient is and has 2 children. 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 She is now s/p right lumpectomy/SLNBx and presents (more content not included)... [facility] 08-07-2023 Note HNO ID: [id number] Author: Silvia Bui LPN Service: ? Author Type: LICENSED NURSE Type: Progress Notes Filed: 08/07/2023 1:02 PM Note Text: DATE OF PHOTOS: 08/07/2023 Body Part: Breasts Silvia Bui LPN August 07, 2023 1:02 PM [facility] 08-07-2023 Note HNO ID: [id number] Author: Anamaria Neves MD Service: ? Author Type: Physician Type: Progress Notes Filed: 08/08/2023 5:39 PM Note Text: [facility] Department of Plastic Surgery BREAST RECONSTRUCTION [...] No Breast Surgeon: Dr. Frank Oncologist: Dr. Langford/[facility] Prior Mammogram: Yes, date: 03/20/2023 Family [...] 2 stage reconstruction with placement of tissue wiener packer with subsequent permanent implant. She understands that 2 stage reconstruction will require at least 2 surgeries and a matching procedure for the unaffected breast. She understands that she may not be a candidate for (more content not included)... [facility] 07-27-2023 Note HNO ID: [id number] Author: Aditi Frank MD Service: ? Author [...] Age of Onset Lipids Mother Heart Father [place] Alcohol/Drug Father Coronary Artery Disease Father other [...] Aditi Frank MD ?I verified the medical receptionist/nurse documentation in the medical record, and made appropriate changes. I personally performed a history, physical exam and medical decision making. Aditi Frank MD Medical Decision Making: Problems: High: Illness/injury w/ threat to life/body function Data: Unique test result(s) reviewed: 1 Risk: Minimal: Minimal risk from testing/treatment Medical Decision Making Level: 2 - Straightforward [facility] 07-27-2023 Note HNO ID: [id number] Author: Lolly Díaz [facility] Service: ? Author Type: Genetic Counselor Type: Progress Notes Filed: 07/27/2023 1:37 PM Note Text: [facility] Consultation Note Genetic Counselor: Lolly Díaz, MS, [facility] Patient: Leon Luong Patient Name and confirmed at initiation of visit. This visit was conducted via [employer]. I have communicated my name and active licensure. The patient's identity and physical location were verified at the time of this visit. Either the patient or their legal delivery representative has been informed of the risks and benefits of -- and alternatives to -- treatment through a remote evaluation and consents to proceed with the evaluation remotely. HIGH LEVEL SUMMARY: The patient's personal and family history is potentially suggestive of a hereditary breast cancer syndrome. The patient provided informed consent for Integrated BRACAnalysis with [facility] through [place]. Results are expected in 2 weeks. IDENTIFICATION [...] planning. PAST MEDICAL HISTORY Diagnosis Date FRACTURE 1988 [...] Age of Onset Lipids Mother Heart Father [place] Alcohol/Drug Father Coronary Artery Disease Father other [...] Network and [employer] (more content not included)... [facility] 07-27-2023 History of Present illness Narrative Chief Complaint: Follow-up on breast cancer Virtual visit HISTORY OF PRESENT ILLNESS: Leon uLong is a 42 year old female who [...] Age of Onset Lipids Mother Heart Father [place] Alcohol/Drug Father Coronary Artery Disease Father other [...] Aditi Frank MD I verified the medical receptionist/nurse documentation in the medical record, and made appropriate changes. I personally performed a history, physical exam and medical decision making. Aditi Frank MD Medical Decision Making: Problems: High: Illness/injury w/ threat to life/body function Data: Unique test result(s) reviewed: 1 Risk: Minimal: Minimal risk from testing/treatment Medical Decision Making Level: 2 - Straightforward documented in this encounter [facility] 07-27-2023 History of Present illness Narrative Images from the original note were not included. [facility] Consultation Note Genetic Counselor: Lolly Díaz, , [facility] Patient: Leon Luong Patient Name and confirmed at initiation of visit. This visit was conducted via [employer]. I have communicated my name and active licensure. The patient's identity and physical location were verified at the time of this visit. Either the patient or their legal delivery representative has been informed of the risks and benefits of -- and alternatives to -- treatment through a remote evaluation and consents to proceed with the evaluation remotely. HIGH LEVEL SUMMARY: The patient's personal and family history is potentially suggestive of a hereditary breast cancer syndrome. The patient provided informed consent for Integrated BRACAnalysis with [facility] through [place]. Results are expected in 2 weeks. IDENTIFICATION [...] Age of Onset Lipids Mother Heart Father [place] Alcohol/Drug Father Coronary Artery Disease Father other [...] appropriate standard National Comprehensive Cancer Network and [place] [employer] guidelines, with consideration of their [...] for the following testing: Integrated BRACAnalysis with [facility] through [place]. The [facility] panel includes APC, CRISTOBAL, AXIN2, BAP1, BARD1, BMPR1A, BRCA1, BRCA2, BRIP1, CDH1, CDK4, CDKN2A, CHEK2, CTNNA1, EGFR, EPCAM, FH, FLCN, GREM1, HOXB13, MEN1, MET, MITF, MLH1, MSH2, MSH3, MSH6, MUTYH, NTHL1, PALB2, PMS2, POLD1, POLE, PTEN, RAD51C, RAD51D, RET, SDHA, SDHB, SDHC, SDHD, SMAD4, STK11, TERT, TP53, TSC1, TSC2, and VHL ADENTS HTImario alberto looks at genes related to inherited breast, ovarian, pancreatic, prostate, colon, uterine, kidney, lung, endocrine, and stomach cancer, as well as inherited colon polyp and melanoma syndromes. We discussed that an NGS panel can rarely result in an unexpected finding which may or may not be related to the presenting phenotype. We discussed that [facility] may contact the patient by text or phone call regarding billing. The patient should watch for this communication and respond promptly. The patient should contact [facility] directly with any billing questions (ph. [phone]). Per the patient's request, we will contact her by telephone to discuss these results. A follow up genetic counseling visit will be scheduled if requested. The patient was seen for a total of 30 minutes, greater than 50% of which was spent [id number] counseling. This plan is being carried out under the oversight of Dr. Vidya Curtis. This note will also be sent to the referring provider via the electronic medical record. Lolly Díaz MS, [facility], Licensed, Certified Genetic Counselor [facility] CC: Dr. Aditi Curtis documented in this encounter [facility] 07-26-2023 Miscellaneous Notes Summary: Nurse Navigation Call placed to patient for navigation. Patient did not answer, voicemail left identifying self and return number. Keerthi Calzada RN, BSN documented in this encounter [facility] 07-25-2023 Note HNO ID: [id number] Author: Radha Gallo MD, MD Service: ? [...] Stage IA (cT1b, cN0(sn), cM0, G2, ER+, MI+, HER2-) - Signed by Aditi Frank MD [...] It's ER positive (>90%, moderate to strong), MI positive (85%, strong) and Her2 0. Biopsy of the right breast 2:00 lesion, 2 cm from the nipple also showed grade 2-3 invasive ductal carcinoma. It's ER positive (>95%, moderate to strong), MI positive (>95%, moderate to strong) and Her2 [...] taking: Reported on 07/13/2023) VITS W-CA,FE,FA,<1MG, ( [id number] ORAL) Take by mouth. (Patient not taking: [...] PAST SURGICAL HISTORY OF 1997 WISDOM TEETH FAMILY HISTORY Problem Relation Age of Onset Lipids Mother Heart Father [place] Alcohol/Drug Father Coronary Artery Disease Father other [...] [facility]2023 Note HNO ID: [id number] Author: Shelley Bennett RN Service: ? Author Type: Registered Nurse Type: Progress Notes Filed: 07/19/2023 8:59 AM Note Text: Leon Luong was reviewed for potential clinical trial enrollment on [facility][id number] by the [facility] [place] [facility] on 07/19/23. Per initial review, patient has disease type breast and appears to be not eligible based on age . Requesting alliance party notified. Shelley Bennett RN [facility] 07-19-2023 History of Present illness Narrative Leon Luong was reviewed for potential clinical trial enrollment on [facility] #[id number] by the [facility]: [facility] on 07/19/23. Per initial review, patient has disease type breast and appears to be not eligible based on age . Requesting alliance party notified. Shelley Bennett RN documented in this encounter [facility] 07-18-2023 Miscellaneous Notes LVM to reschedule her appointment with Dr. Neves. Dede documented in this encounter [facility] 07-16-2023 Miscellaneous Notes Patient called back [...] Dr.Lee Krystina Meyers documented in this encounter [facility] 07-13-2023 Note HNO ID: [id number] Author: Aditi Frank MD Service: ? Author [...] PAST SURGICAL HISTORY OF 1997 WISDOM TEETH Social History Tobacco Use Smoking status: Never Smokeless tobacco: Never Vaping Use Vaping Use: Never used Substance Use Topics Alcohol use: Yes Comment: Socially Drug use: No FAMILY HISTORY Problem Relation Age of Onset Lipids Mother Heart Father [place] Alcohol/Drug Father Coronary Artery Disease Father other [...] taking: Reported on 07/13/2023) VITS W-CA,FE,FA,<1MG, ( [id number] ORAL) Take by mouth. (Patient not taking: [...] patient with T1b N0 M0, ER positive, MI positive, HER2 negative, Stage 1A right breast [...] is pending -Pat (more content not included)... [facility] 07-13-2023 Note HNO ID: [id number] Author: Keerthi Calzada RN Service: ? Author Type: Registered Nurse Type: Progress Notes Filed: 07/13/2023 4:05 PM Note Text: Summary: Nurse Navigation Introduced self to patient as nurse navigator. Explained role. Packet of information given to patient including introduction letter, information sheets on oncology resources, navigation information, art therapy, financial assistance, social media analyst, [facility]. Encouraged patient to call with any questions or concerns. Keerthi Calzada RN, BSN [facility] 08-19-2022 History of Present illness Narrative HISTORY [...] an as-needed basis. documented in this encounter [facility] 07-28-2022 History of Present illness Narrative Recent office vist, no covid screening needed documented in this encounter [facility] 06-28-2022 History of Present illness Narrative [...] with cold for better symptom management. [facility] Work Phone: 06-12-2022 History of Present illness Narrative [facility] [address] [facility] [address] [facility] [address] Chief Complaint Patient presents with Results MRI [...] the treatment plan. documented in this encounter [facility] documented as of this encounter (statuses as of 07/16/2023) [facility] History of Past illness Narrative* Problem [...] of this encounter (statuses as of 07/17/2023) [facility] History of Past illness Narrative* Problem [...] of this encounter (statuses as of 07/18/2023) [facility] History of Past illness Narrative* Problem [...] of this encounter (statuses as of 07/19/2023) [facility] History of Past illness Narrative* Problem [...] of this encounter (statuses as of 07/25/2023) [facility] History of Past illness Narrative* Problem [...] of this encounter (statuses as of 07/26/2023) [facility] History of Past illness Narrative* Problem [...] of this encounter (statuses as of 07/27/2023) [facility] of Past illness Narrative* Problem [...] of this encounter (statuses as of 07/28/2023) [facility] Patellofemoral chondrosis [facility] left [facility]- [facility] Knee [facility], 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 [facility] 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, 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, 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, left [facility] Diagnosis Patellofemoral chondrosis of left knee- Primary [facility] Diagnosis Malignant neoplasm of upper-inner quadrant of right breast in female, estrogen receptor positive (HCC) (HCC)- Primary Family history of malignant neoplasm of breast documented in this encounter [facility] note* Diagnosis Malignant neoplasm of upper-inner quadrant of right breast in female, estrogen receptor positive (HCC) (HCC)- Primary Family history of malignant neoplasm of breast [facility] N[facility]ative arrives to outpatient PT c/o . Pt presents with the following impairments: . These impairments contribute to difficulty in activity limitations and participation restrictions including . Thept s signs and symptoms are consistent with likely . The pt will benefit from skilled PT enwifsze3i/week for 8 weeks to address the above stated impairments and functional limitations to maximize participation and ease in household, social, and work related activities. The pt has a prognosis w hen considering positive factors including with barriers such as . The pt verbalized understanding and agreement to goals and POC. Thank you for this referral and please call [phone] with any questions or concerns. [facility] [...] you for this referral and please call [phone] with any questions or concerns. * Clinical Presentation: Stable and/or uncomplicated characteristics. * Level of Complexity: low * Problem List: activity limitations, ADLs/IADLs/self care skills, decreased knowledge of HEP, flexibility, gait/locomotion, pain, participation restrictions, range of motion/joint mobility and strength. [facility] Work Phone: History of Present illness NarrativePatient identified by name and date of . Patient presented with visual and palpable edema around L knee. She ambulated into clinic with antalgic gait pattern with lack of heel strike and toe off. She was able to preform SLR in min range with quad lag noted. [facility] [employer] Work Phone: History of Present illness Narrative* Patient identified by name and * Patient challenged with exercises. Patient tolerates progressions with mild difficulty through available range. Demo's tolerance in sidelying hip abduction and adduction. Gameready at end of session to help decrease symptoms and edema. [facility] [employer] Work Phone: History of Present illness NarrativeFair tolerance to progressions in ther ex. Noted catching with mid flexion of L knee. Noted edema of L knee this date compared to R LE. Verbal cues for quadriceps engagement with SLR and proper form with SAQ. Pain with L knee flexion with heel slides. 0/10 pain reported following GameReady.[facility] Work Phone: History of Present illness NarrativePatient has good understanding of all therapeutic exercises performed today with no major increasesin pain t/o. 0/10 pain reported following GameReady application.[facility] [employer] Work Phone: History of Present illness Narrative* Patient confirmed name and date of this session. * Pt with good tolerance to session with no c/o increased pain except with heel slides. Edema observed of L knee. Game ready applied this date to reduce pain and edema with pt reports of 0/10 after. Skin intact pre/post Game ready. [facility] Work [facility]: History of Present illness NarrativePatient identified by name and date of . Patient demonstrated antalgic gait with entering clinic area. She presented with edema around her L knee and tenderness to the touch. She presented with poping/cracking with heel slides this date.[facility] [employer] Work Phone: History of Present illness NarrativePatient identified by name and date of . Patient was able to progress with reps with LAQ with minimal increased Sx. She continues to demonstrated difficulty with ROM with increased Sx noted during and after. She responded well to game ready with reduction of Sx after.[facility] Work Phone: History of Present illness NarrativePt [...] goals not met due to chronicity of sxs.[facility] Work Phone: Hisvpsp of Present illness NarrativePatient identified by name and date of . Patient presented with palpable tension in HS, IT andcalf this date that responded well to STW with mild pressure. She required cues for new stretches and was able to complete. She responded well to vaso with reduction of Sx and edema after treatment. [facility] Work Phone: History of Present illness Narrative* Patient has tenderness along lateral joint line of the knee. * Tenderness along ITB and along Pes Anserine region with light palpation. * Antalgic gait upon arrival. * Patient was in too much pain to complete PRE's this date, so focus was on the STW, stretches and vasopneumatic. [facility] Work Phone: reason for visit Narrative* Initial Evaluation . L knee instability. * Referred by: Johnson Perkins CNP [facility] Work Phone: Reason for Referral Specialty Diagnoses / Procedures Referred By Regan arreola Referred To Contact Physical Therapy Diagnoses Knee instability, left Patellofemoral chondrosis of left knee Johnson Perkins, IT TECHNICAL SUPPORT SPECIALIST [address] [place] [address] Referral ID Status Reason Start Date Expiration Date Visits Requested Visits Authorized [id number] Authorized Patient Preference 06/13/2022 06/13/2023 1 1 [...] knee Reason Comments Follow-up Reason Comments Outside [id number] Ordered Called Romario lopez at [facility] to check status on requested pathology slides that was sent on 07/11/23. Per Lynn, patient will have to go to their lab to sign a medical release form before slides can be released. Left message for patient to contact our office. Julieta Liang, BUSINESS CONTINUITY CONSULTANT Reason Comments Appointment Notified Krystina at Rajan Gallo's office of new referral for consult on breast cancer. Krystina stated that she will contact patient to schedule appt. Julieta Liang LPN Reason Comments New Patient Reason Comments APPOINTMENT Reason Comments Research Prescreening Reason Comments Outside [id number] Ordered Spoke with patient on Sunday regarding need for signed release for pathology slides from [facility]. Patient had stated that Dr. Romo's office could request slides without needing release and that she would contact his office. Spoke with Yanique at 's office, per Yanique they were also told that a signed release was needed from patient. Left message for patient to reach out to [facility] to see about signing a release. Julieta Liang LPN Reason Comments Outside [id number] Ordered Contacted Michele ibanez for status on [...] Care Teams (unrecognized sec tion and content) Packaging Specialist Relationship Specialty Start Date End Date Rosy Castillo MD PCP - General Family Medicine 12/21/15 Packaging Specialist Relationship Specialty Start Date End Date Rosy Castillo MD PCP - General Family Medicine 12/21/15 Packaging Specialist Relationship Specialty Start Date End Date Rosy Castillo MD PCP - General Family Medicine 12/21/15 Packaging Specialist Relationship Specialty Start Date End Date Rosy Castillo MD [address] [place] [address] PCP - General Family Medicine 07/31/22 Packaging Specialist Relationship Specialty Start Date End Date Ester Augustine, IT TECHNICAL SUPPORT SPECIALIST [address] [place] [address] PCP - General Family Medicine 07/16/23 Fantasma Romo MD [address] [place] [id number] General Surgery 07/16/23 Packaging Specialist Relationship Specialty Start Date End Date Ester Augustine CNP [address] [place] [address] PCP - General Family Medicine 07/16/23 Fantasma Romo MD [address] [address] General Surgery 07/16/23 Packaging Specialist Relationship Specialty Start Date End Date Ester Augustine CNP [address] [place] [address] PCP - General Family Medicine 07/16/23 Fantasma Romo MD [address] [address] General Surgery 07/16/23 Radha Gallo MD, [address] [facility] [place] [address] Radiation Oncology 07/17/23 Packaging Specialist Relationship Specialty Start Date End Date Ester Augustine CNP [address] [place] [address] PCP - General Family Medicine 07/16/23 Fantasma Romo MD [address] [facility] [address] [place] [address] General Surgery 07/16/23 Radha Gallo MD, [address] [place] [address] Radiation Oncology 07/17/23 Packaging Specialist Relationship Specialty Start Date End Date Ester Augustine CNP [address] [place] [address] PCP - General Family Medicine 07/16/23 Fantasma Romo MD [address] [address] General Surgery 07/16/23 Radha Gallo MD, [address] [place] [address] Radiation Oncology 07/17/23 Packaging Specialist Relationship Specialty Start Date End Date Ester Augustine CNP [address] [place] [address] PCP - General Family Medicine 07/16/23 Fantasma Romo MD [address] [address] General Surgery 07/16/23 Radha Gallo MD, [address] [place] [address] Radiation Oncology 07/17/23 Packaging Specialist Relationship Specialty Start Date End Date Ester Augustine CNP [address] [place] [address] PCP - General Family Medicine 07/16/23 Fantasma Romo MD [address] [place] [address] General Surgery 07/16/23 Radha Gallo MD, MD [address] [place] [address] Radiation Oncology 07/17/23 INFORMATION SOURCE (unrecogn ized section and content) DATE CREATED AUTHOR AUTHOR'S ORGANIZ ATION 08/04/2022 [facility] DATE CREATED AUTHOR AUTHOR'S ORGANIZ ATION 08/05/2022 [employer] DATE CREATED AUTHOR AUTHOR'S ORGANIZ ATION 08/11/2022 [facility] DATE CREATED AUTHOR AUTHOR'S ORGANIZ ATION 08/18/2022 [facility] DATE CREATED AUTHOR AUTHOR'S ORGANIZ ATION 01/22/2023 [facility] DATE CREATED AUTHOR AUTHOR'S ORGANIZ ATION 09/08/2023 [facility] DATE CREATED AUTHOR AUTHOR'S ORGANIZ ATION 09/12/2023 [facility] Source Comments (unrecognize d section and content) In the event this informatio n is protected by the Federal Confidentiality of Alcohol and Drug Abuse Patient Records regulations: The Federal rules restrict any use of the information to criminally investigate or prosecute any alcohol or drug abuse patient.[facility] the event this information is protected by the Federal Confidentiality of Alcohol and Drug Abuse Patient Records regulations: The Federal rules restrict any use of the information to criminally investigate or prosecute any alcohol or drug abuse patient.[facility] HospitalIn the event this information is protected by the Federal Confidentiality of Alcohol and Drug Abuse Patient Records regulations: The Federal rules restrict any use of the information to criminally investigate or prosecute any alcohol or drug abuse patient.[facility] HospitalIn the event this information is protected by the Federal Confidentiality of Alcohol and Drug Abuse Patient Records regulations: The Federal rules restrict any use of the information to criminally investigate or prosecute any alcohol or drug abuse patient.[facility] HospitalIn the event this information is protected by the Federal Confidentiality of Alcohol and Drug Abuse Patient Records regulations: The Federal rules restrict any use of the information to criminally investigate or prosecute any alcohol or drug abuse patient.[facility] HospitalIn the event this information is protected by the Federal Confidentiality of Alcohol and Drug Abuse Patient Records regulations: The Federal rules restrict any use of the information to criminally investigate or prosecute any alcohol or drug abuse patient.[facility] HospitalIn the event this information is protected by the Federal Confidentiality of Alcohol and Drug Abuse Patient Records regulations: The Federal rules restrict any use of the information to criminally investigate or prosecute any alcohol or drug abuse patient.[facility] HospitalIn the event this information is protected by the Federal Confidentiality of Alcohol and Drug Abuse Patient Records regulations: The Federal rules restrict any use of the information to criminally investigate or prosecute any alcohol or drug abuse patient.[facility] HospitalIn the event this information is protected by the Federal Confidentiality of Alcohol and Drug Abuse Patient Records regulations: The Federal rules restrict any use of the information to criminally investigate or prosecute any alcohol or drug abuse patient.[facility] HospitalIn the event this information is protected by the Federal Confidentiality of Alcohol and Drug Abuse Patient Records regulations: The Federal rules restrict any use of the information to criminally investigate or prosecute any alcohol or drug abuse patient.[facility] FOR RECORDS PERTAINING TO PATIENTS WHO [...] BE BASED ON THE PRIMARY CLINICAL RECORDS. [employer] [facility]. provides no warranty or guarantee of the accuracy or completeness of information in this document.
[2023-09-14 08:12] LABS: Cancer Antigen 125 42.7 U/mL (0.0-38.1); Carcinoembryonic Antigen 0.8 ng/mL (0.0-4.7)
== END | disposition home or self-care (01) ==
LOC: PAVLAB 07:56
PROVIDERS: PCP Nurse Practitioner Family; Referring Provider Nurse Practitioner Women's Health; Visit Provider Nurse Practitioner Women's Health
DX: N83.292 Other ovarian cyst, left side (principal)
CPT/HCPCS: 36415; 82378; 86304

== ENCOUNTER 2024-09-08 16:50 | Emergency (ER) | payer OTHER, SELFPAY ==
[2024-09-08 16:51] VITALS: BP 139/93; PULSE 84; RESP 15; TEMP 36; O2SAT 100; BMI 35.8
--- NOTE | 2024-09-08 18:43 | ED.RN ---
[facility] CALLED AND STATED THEY ARE UNABLE TO PERFORM UPPER EXTREMITY ULTRASOUNDS AFTER HOURS. PT INFORMED. PT CHOOSES TO LEAVE WITHOUT BEING SEEN AT THIS TIME.
== END 2024-09-08 18:46 | disposition left against medical advice (07) ==
LOC: ED 18:50
PROVIDERS: PCP Nurse Practitioner Family
DX: M79.89 Other specified soft tissue disorders (principal); C50.919 Malignant neoplasm of unspecified site of unspecified female breast; Z53.21 Procedure and treatment not carried out due to patient leaving prior to being seen by health care provider